=== PATIENT | male | born 1990 ===

== ENCOUNTER → 2020-10-19 11:59 | Outpatient (BNVA) | payer OTHER, SELFPAY | PROVIDERS: PCP Internal Medicine; Visit Provider Physician Assistant | DX: S93.401A Sprain of unspecified ligament of right ankle, initial encounter (principal); W18.31XA Fall on same level due to stepping on an object, initial encounter | CPT/HCPCS: 29515; 73610; 99203 ==

== ENCOUNTER → 2020-10-25 13:18 | Outpatient (BNVA) | payer OTHER, SELFPAY | PROVIDERS: PCP Internal Medicine; Visit Provider Physician Assistant | DX: S93.401A Sprain of unspecified ligament of right ankle, initial encounter (principal); X58.XXXA Exposure to other specified factors, initial encounter | CPT/HCPCS: 99213 ==

== ENCOUNTER → 2020-11-02 11:48 | Outpatient (BNVA) | payer OTHER, SELFPAY | PROVIDERS: PCP Internal Medicine; Visit Provider Physician Assistant Medical | DX: S93.401A Sprain of unspecified ligament of right ankle, initial encounter (principal); W01.0XXA Fall on same level from slipping, tripping and stumbling without subsequent striking against object, initial encounter | CPT/HCPCS: 99213 ==

== ENCOUNTER → 2020-11-04 09:20 | Outpatient (BNVA) | payer OTHER, SELFPAY | PROVIDERS: PCP Internal Medicine; Visit Provider Physician Assistant Medical | DX: S93.401A Sprain of unspecified ligament of right ankle, initial encounter (principal); X58.XXXA Exposure to other specified factors, initial encounter | CPT/HCPCS: 99213 ==

== ENCOUNTER → 2020-11-17 13:02 | Outpatient (BNVA) | payer OTHER, SELFPAY | PROVIDERS: PCP Internal Medicine; Visit Provider Physician Assistant | DX: S93.401D Sprain of unspecified ligament of right ankle, subsequent encounter (principal); X58.XXXD Exposure to other specified factors, subsequent encounter | CPT/HCPCS: 99213 ==

== ENCOUNTER → 2020-12-01 13:16 | Outpatient (BNVA) | payer OTHER, SELFPAY | PROVIDERS: PCP Internal Medicine; Visit Provider Physician Assistant Medical | DX: S93.401D Sprain of unspecified ligament of right ankle, subsequent encounter (principal); X58.XXXD Exposure to other specified factors, subsequent encounter | CPT/HCPCS: 99213 ==

== ENCOUNTER 2020-12-06 14:00 | Outpatient (RCR) | payer OTHER, SELFPAY ==
--- NOTE | 2020-11-09 15:58 | MHC.PT.EP ---
[facility] [place] Office [place] Office [place] Office [address] Amber Chen [address] [phone] F: [phone] F: [phone] F: [phone] F: [phone] Physical Therapy Plan of Care Date of Evaluation: 11/09/20 Date of Surgery: Diagnosis: R ankle sprain Assessment: pt presents to physical therapy with pain, decreased range of motion, decreased strength, impaired functional mobility, impaired postural awareness, and gait deviations. pt is an excellent candidate for skilled PT due to age, potential remediation of impairments, typical disease/condition progression and prognosis, comorbidities, and motivation. pt would benefit from tailored strengthening and stretching exercise program, functional training, gait training, postural re-training, neuromuscular re-education, modalities as needed for pain, equipment safety demonstration. Frequency and Duration: The patient will be seen 2x/wk for 5 wks Short Term Goals: pt will be I w/ HEP to promote self-management of condition. pt will improve R ankle DF by 20 deg to normalize gait pattern on even ground. Senior Living Goals: pt will report statistically significant improvement in self-reported outcome measure, LEFI, to promote return to PLOF. pt will perform 8 step down x5 reps w/ <1/10 R ankle pain to facilitate return to work. Treatment Plan: Modalities to reduce pain, spasms and effusion. Manual therapy to restore motion and function. Therapeutic exercise to improve strength and flexibility. Neuromuscular re-education for posture and balance. Therapeutic activities to return to functional activities of daily living. Electronically signed by: Liz Vera PT, DPT Please sign and return to therapist. Thank you for your referral.
--- NOTE | 2020-12-07 14:28 | MHC.PT.DC ---
[facility] [place] Office [place] Office [place] Office [address] Amber Chen 140 [facility] [phone] F: [phone] F: [phone] F: [phone] F: [phone] Physical Therapy Discharge Report Diagnosis: R ankle sprain Date of Surgery: Date of Evaluation: 11/09/20 Date of Discharge: 12/07/20 Treatments to Date: 3 Cancellations to Date: 0 No Shows to Date: 4 Discharge Status: Visit Non-compliance Discharge Summary: The patient has no showed four consecutive appointments. He was given a home exercise program including a gastrocnemius-soleus complex stretching, ankle range of motion, and ankle strengthening. We were beginning to progress towards more dynamic exercises and activities to prepare him to return to work. He is discharged from this physical therapy plan of care due to noncompliance. Electronically signed by: Liz Vera PT, DPT Please sign and return to therapist. Thank you for your referral.
== END 2020-12-07 14:28 | disposition other institution (70) ==
LOC: HO.PT 14:00
PROVIDERS: PCP Internal Medicine; Visit Provider Physician Assistant Medical
DX: S93.401D Sprain of unspecified ligament of right ankle, subsequent encounter (principal)
CPT/HCPCS: 97110; 97112; 97161

== ENCOUNTER → 2020-12-15 15:26 | Outpatient (BNVA) | payer OTHER, SELFPAY | PROVIDERS: PCP Internal Medicine; Visit Provider Physician Assistant Medical | DX: S93.401D Sprain of unspecified ligament of right ankle, subsequent encounter (principal); X58.XXXD Exposure to other specified factors, subsequent encounter | CPT/HCPCS: 99213 ==

== ENCOUNTER → 2020-12-29 12:53 | Outpatient (BNVA) | payer OTHER, SELFPAY | PROVIDERS: PCP Internal Medicine; Visit Provider Physician Assistant Medical | DX: S93.401D Sprain of unspecified ligament of right ankle, subsequent encounter (principal); X58.XXXD Exposure to other specified factors, subsequent encounter | CPT/HCPCS: 99213 ==

== ENCOUNTER 2021-01-05 08:24 | Outpatient (REF) | payer OTHER, SELFPAY ==
--- NOTE | ~2021-01-05 | XR_ITS ---
EXAMINATION: XR ANKLE, RIGHT CLINICAL INFORMATION: Pain COMPARISON: Previous exam 10/19/2020 TECHNIQUE: AP, lateral, and mortise views of the right ankle. FINDINGS: The bones and soft tissues are normal. No fracture. Alignment is anatomic. Joint spaces are maintained. No joint effusion. XR/XR ankle RT min 3V IMPRESSION: Normal right ankle.
== END 2021-01-05 08:25 | disposition home or self-care (01) ==
LOC: HO.HOSX 08:24
PROVIDERS: Visit Provider Physician Assistant
DX: S93.401A Sprain of unspecified ligament of right ankle, initial encounter (principal)
CPT/HCPCS: 73610; 99202

== ENCOUNTER → 2021-01-14 11:52 | Outpatient (BNVA) | payer OTHER, SELFPAY | PROVIDERS: PCP Internal Medicine; Visit Provider Physician Assistant Medical | DX: S93.491D Sprain of other ligament of right ankle, subsequent encounter (principal); X58.XXXD Exposure to other specified factors, subsequent encounter | CPT/HCPCS: 99213 ==

== ENCOUNTER → 2021-02-04 11:22 | Outpatient (BNVA) | payer OTHER, SELFPAY | PROVIDERS: PCP Internal Medicine; Visit Provider Physician Assistant Medical | DX: S93.401D Sprain of unspecified ligament of right ankle, subsequent encounter (principal); X58.XXXD Exposure to other specified factors, subsequent encounter | CPT/HCPCS: 99213 ==

== ENCOUNTER 2021-05-27 09:42 | Emergency (ER) | payer OTHER, SELFPAY ==
--- NOTE | ~2021-05-27 | XR_ITS ---
EXAMINATION: XR KNEE, RIGHT CLINICAL INFORMATION: Injury at work. Pain. COMPARISON: None TECHNIQUE: Four views of the right knee. FINDINGS: Bones and soft tissues are normal. No fracture or joint effusion. Alignment is anatomic. Joint spaces are well maintained. No abnormal soft tissue calcification. XR/XR knee RT 4V IMPRESSION: Unremarkable right knee.
[2021-05-27 09:58] VITALS: BP 133/89; PULSE 86; RESP 18; TEMP 36.9; O2SAT 98; BMI 30.7
--- NOTE | 2021-05-27 10:10 | ED.LOWEXIN ---
HPI - Extremity Injury (Lower) General Chief Complaint: Extremity Problem Stated Complaint: knee pain Time Seen by Provider: 05/27/21 10:09 Source: patient Mode of arrival: ambulatory Limitations: no limitations History of Present Illness MD complaint: knee injury Onset (ago): minute(s) Injury: Right: knee Type of Injury: hyperextension (fell at work landed on R leg standing felt a pop in knee) Place: work Severity: moderate Relieving factors: nothing Exacerbating factors: weight bearing, movement and palpation Context: fall Associated symptoms: snap/pop sensation Other symptoms: none Related Data Previous Rx's Medication Instructions Recorded meloxicam 15 mg tablet 15 mg PO DAILY PRN #30 tab 10/10/20 allopurinol 100 mg tablet 100 mg PO DAILY #30 tab 12/22/20 colchicine 0.6 mg tablet 0.6 mg PO Q12H #20 tab 12/22/20 cyclobenzaprine 10 mg tablet 10 mg PO TID PRN #14 tab 05/27/21 Allergies Allergy/AdvReac Type Severity Reaction Status Date / Time ciprofloxacin [Cipro] Allergy Unknown rash Verified 01/05/21 13:53 sulindac [SULINDAC] Allergy Unknown ITCHING, Verified 01/05/21 13:53 Rash/swelling on face indomethacin AdvReac Unknown stomach Verified 01/05/21 13:53 upset Review of Systems Review of Systems: Constitutional : No Fever, No Chills ENT/Mouth : No Ear Pain, No Hoarseness, No sore throat Eyes: No Eye Pain, No Swelling, No Redness, No Foreign Body Cardiovascular : No Chest Pain, No SOB Respiratory : No Cough, No Dyspnea Gastrointestinal : No Nausea, No Vomiting, No Diarrhea, No abdominal Pain Genitourinary : No Dysuria, No Hematuria Musculoskeletal : positive joint pain, No Myalgias, No Joint Swelling Skin : No Skin lacerations, No rash Neuro : No Weakness, No Numbness, No Loss of Consciousness, No Dizziness, No Headache Psych : No Anxiety/Panic, No Depression PMFSH Past Medical History Attestation statement: The following information was validated with the patient. 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 Oriented X3. No acute distress. Eyes: Pupils equal, round and reactive to light. ENT: Pharynx normal. Neck: Normal inspection. Neck supple. CVS: Normal heart rate and rhythm. Pulses normal. Respiratory: No respiratory distress. Breath sounds normal. Abdomen: no signs of trauma Skin: Skin warm and dry. Normal skin color. Extremities: No lower extremity edema. R knee ttp along medial meniscus - distal NV intact, quadriceps tendon intact - some ACL laxity with testing Neuro: Oriented X 3. No motor deficit. No sensory deficit. MDM - Extremity Injury (Lower) MDM Narrative Medical decision making narrative: 30 yo male with no sig PMH here with fall and landed on R leg when he landed (did not fall) felt a pop. He is NV intact some laxity in ACL testing - will obtain xray, place in immobilizer and crutches refer to work connection Procedures Orthopedic Splinting/Casting Injury #1: Side: right Lower Extremity Injury Location: knee Lower Extremity Immobilizer: knee immobilizer Other Orthopedic Equipment: crutches Discharge Plan Discharge Clinical Impression: Right knee sprain Patient Disposition: Home, Self-Care Instructions: Knee Sprain (ED), Knee Immobilizer (ED) Additional Instructions: return to ED for any worsening symptoms or concerns wear immobilizer and use crutches until cleared, minimal toe touch weight bearing take tylenol as needed for pain over the counter xrays negative at this time. Prescriptions: New cyclobenzaprine 10 mg tablet 10 mg PO TID PRN (Reason: muscle spasm) Qty: 14 RF: 0 No Action meloxicam 15 mg tablet 15 mg PO DAILY PRN (Reason: for swelling) Qty: 30 RF: 2 colchicine 0.6 mg tablet 0.6 mg PO Q12H Qty: 20 RF: 2 allopurinol 100 mg tablet 100 mg PO DAILY Qty: 30 RF: 2 Referrals: Tima Pedersen MD [Physician] - 2 days (any provider call for appointment) Stand Alone Forms: Work/School Release
[2021-05-27] MEDS: Cyclobenzaprine HCl 10 MG TABLET PO (10:24)
[2021-05-27] MEDS: Acetaminophen 325 MG TABLET 650 MG PO (10:24)
== END 2021-05-27 10:58 | disposition home or self-care (01) ==
PROVIDERS: Emergency Provider Emergency Medicine; PCP Internal Medicine
DX: S83.91XA Sprain of unspecified site of right knee, initial encounter (principal); M25.561 Pain in right knee; W01.0XXA Fall on same level from slipping, tripping and stumbling without subsequent striking against object, initial encounter; Y93.9 Activity, unspecified; Y92.9 Unspecified place or not applicable; Y99.0 Civilian activity done for income or pay; Z79.899 Other long term (current) drug therapy
CPT/HCPCS: 29505; 73564; 99283

== ENCOUNTER → 2021-05-30 10:35 | Outpatient (BNVA) | payer OTHER, SELFPAY | PROVIDERS: PCP Internal Medicine; Visit Provider Internal Medicine | DX: M25.461 Effusion, right knee (principal); M23.91 Unspecified internal derangement of right knee | CPT/HCPCS: 99203 ==

== ENCOUNTER → 2021-06-03 09:03 | Outpatient (BNVA) | payer OTHER, SELFPAY | PROVIDERS: PCP Internal Medicine; Visit Provider Internal Medicine | DX: M23.91 Unspecified internal derangement of right knee (principal); M25.461 Effusion, right knee | CPT/HCPCS: 99213 ==

== ENCOUNTER 2021-06-10 10:38 | Outpatient (REF) | payer OTHER, SELFPAY ==
--- NOTE | ~2021-06-10 | XR_ITS ---
EXAMINATION: XR KNEE, RIGHT CLINICAL INFORMATION: Knee pain. COMPARISON: Knee radiographs 05/27/2021. TECHNIQUE: Single sunrise view of the right knee. FINDINGS: [place] view appears normal. No significant arthritic change seen at the patellofemoral joint. XR/XR knee RT 2V IMPRESSION: Normal sunrise view right knee.
== END 2021-06-10 10:39 | disposition home or self-care (01) ==
LOC: HO.XRAY 10:38
PROVIDERS: PCP Internal Medicine; Visit Provider Physician Assistant
DX: M23.91 Unspecified internal derangement of right knee (principal)
CPT/HCPCS: 73560; 99212

== ENCOUNTER → 2021-06-13 09:29 | Outpatient (BNVA) | payer OTHER, SELFPAY | PROVIDERS: PCP Internal Medicine; Visit Provider Internal Medicine | DX: M25.461 Effusion, right knee (principal); M23.91 Unspecified internal derangement of right knee | CPT/HCPCS: 99213 ==

== ENCOUNTER 2021-06-16 08:15 | Outpatient (REF) | payer OTHER, SELFPAY ==
--- NOTE | ~2021-06-16 | MR_ITS ---
EXAMINATION: MR KNEE WITHOUT CONTRAST, RIGHT CLINICAL INFORMATION: Right knee pain and swelling. Difficulty with bending. Injury in May 2021. COMPARISON: Multiple priors, most recent right knee radiographs dated 06/10/2021. TECHNIQUE: MRI of the knee without contrast was performed using routine sequences on a high-field scanner. FINDINGS: MENISCI: Medial Meniscus: Edema along the periphery of the posterior medial meniscal body and posterior horn, which could indicate a nondisplaced meniscocapsular injury. No articular surface meniscal tear. Lateral Meniscus: Intact. LIGAMENTS: Cruciate: Intact. Collateral: Intact. EXTENSOR MECHANISM: Intact. ARTICULAR CARTILAGE/BONE: Patellofemoral Compartment: Minimal central trochlea articular cartilage signal heterogeneity and surface regularly. Tiny marginal osteophytes. Medial Compartment: Normal. Lateral Compartment: Normal. JOINT FLUID AND BURSAE: Moderate joint effusion. MR/MR knee RT wo con IMPRESSION: 1. Edema along the periphery of the posterior medial meniscal body and posterior horn, consistent with a nondisplaced meniscocapsular injury. No articular surface meniscal tear. 2. Mild patellofemoral arthrosis. Moderate joint effusion. 3. No acute ligament injury.
== END 2021-06-16 08:16 | disposition home or self-care (01) ==
LOC: HO.MRI 08:15
PROVIDERS: PCP Internal Medicine; Visit Provider Internal Medicine
DX: M25.561 Pain in right knee (principal); M25.461 Effusion, right knee
CPT/HCPCS: 73721

== ENCOUNTER → 2021-06-23 07:54 | Outpatient (BNVA) | payer OTHER, SELFPAY | PROVIDERS: PCP Internal Medicine; Visit Provider Internal Medicine | DX: S83.241D Other tear of medial meniscus, current injury, right knee, subsequent encounter (principal); X58.XXXD Exposure to other specified factors, subsequent encounter | CPT/HCPCS: 99214 ==

== ENCOUNTER → 2021-06-29 11:12 | Outpatient (BNVA) | payer OTHER, SELFPAY | PROVIDERS: PCP Internal Medicine; Visit Provider Physician Assistant | DX: S83.001D Unspecified subluxation of right patella, subsequent encounter (principal); M22.41 Chondromalacia patellae, right knee | CPT/HCPCS: 99212 ==

== ENCOUNTER 2021-07-14 10:01 | Outpatient (RCR) | payer OTHER, SELFPAY ==
--- NOTE | 2021-07-14 10:51 | MHC.PT.EP ---
[facility] [place] Office [place] Office [place] Office [address] Amber Chen [address] [phone] F: [phone] F: [phone] F: [phone] F: [phone] Physical Therapy Plan of Care Date of Evaluation: Date of Surgery: n/a Diagnosis: Subluxation of R patella Assessment: Patient is a 31 year old male presenting to PT with complaints of pain in his R knee. 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 He presents today with impairments in pain, knee ROM, hip strength, and balance. Pt's current occupation is for the [employer], with baseline physical activities including work, squatting, kneeling, and stair negotiation. Pt expresses jail goal of being able to squat and kneel, and is motivated to work towards this in PT. Clinical presentation today is most consistent with signs and sx associated with s/p R patella subluxation and pt will benefit from skilled PT to address the following problems and impairments noted upon evaluation: pain, knee ROM, hip strength, and balance. These problems limit the patient with the following functional activities: work, squatting, kneeling, and stair negotiation. The prescribed treatment plan of care is medically necessary. Co-morbidities of none were identified and taken into considerations of plan of care. Pt was educated on HEP, role of PT, prognosis, POC. Frequency and Duration: The patient will be seen 2 x week x 4 weeks Short Term Goals: Pt will demonstrate R knee AROM equal B with no pain in 2 weeks. Pt will demonstrate improved B hip strength by 1/3 MMT for improved lumbopelvic stability in 2 weeks. Pt will demonstrate ability to perform 10 heel raises on R with min to no pain in 2 weeks. Pt will demonstrate ability to SLS on foam x 30 seconds with min to no ankle strategy in 2 weeks. Fdc Goals: Pt will demonstrate improved LEFI score by 9 points in 4 weeks for improved functional mobility. Pt will demonstrate ability to squat with good mechanics and min to no pain in 4 weeks to allow return to PLOF. Pt will demonstrate ability to negotiate stairs with min to no pain in 4 weeks for improved access to his home. Treatment Plan: Modalities to reduce pain, spasms and effusion. Manual therapy to restore motion and function. Therapeutic exercise to improve strength and flexibility. Neuromuscular re-education for posture and balance. Therapeutic activities to return to functional activities of daily living. Electronically signed by: Nicole Tobin, PT, DPT, ATC Please sign and return to therapist. Thank you for your referral.
--- NOTE | 2021-08-02 09:22 | MHC.PT.DC ---
[facility] [place] Office [place] Office [place] Office [address] Sonya Chen [address] [phone] F: [phone] F: [phone] F: [phone] F: [phone] Physical Therapy Discharge Report Diagnosis: Subluxation of R patella Date of Surgery: n/a Date of Evaluation: 07/14/21 Date of Discharge: 08/02/21 Treatments to Date: 1 Cancellations to Date: 0 No Shows to Date: 2 Discharge Status: Visit Non-compliance Discharge Summary: Pt has failed to comply with [facility] [place] policy and no showed all appointments since initial evaluation. Pt current status unknown. Electronically signed by: Nicole Tobin, PT, DPT, ATC Please sign and return to therapist. Thank you for your referral.
== END 2021-08-02 09:22 | disposition home or self-care (01) ==
LOC: HO.PT 10:01
PROVIDERS: PCP Internal Medicine; Visit Provider Physician Assistant
DX: S83.001A Unspecified subluxation of right patella, initial encounter (principal); M22.41 Chondromalacia patellae, right knee
CPT/HCPCS: 97110; 97161

== ENCOUNTER → 2022-01-05 09:22 | Outpatient (BNVA) | payer OTHER, SELFPAY | PROVIDERS: PCP Internal Medicine; Visit Provider Physician Assistant | DX: S93.402A Sprain of unspecified ligament of left ankle, initial encounter (principal); W17.2XXA Fall into hole, initial encounter | CPT/HCPCS: 29515; 73610; 99204 ==

== ENCOUNTER → 2022-01-11 13:34 | Outpatient (BNVA) | payer OTHER, SELFPAY | PROVIDERS: PCP Internal Medicine; Visit Provider Physician Assistant | DX: S93.402A Sprain of unspecified ligament of left ankle, initial encounter (principal); X58.XXXA Exposure to other specified factors, initial encounter | CPT/HCPCS: 99213 ==

== ENCOUNTER → 2022-01-23 11:45 | Outpatient (BNVA) | payer OTHER, SELFPAY | PROVIDERS: PCP Internal Medicine; Visit Provider Physician Assistant Medical | DX: S93.402D Sprain of unspecified ligament of left ankle, subsequent encounter (principal); X58.XXXD Exposure to other specified factors, subsequent encounter | CPT/HCPCS: 99213 ==

== ENCOUNTER 2022-02-07 11:40 | Emergency (ER) | payer OTHER, SELFPAY ==
--- NOTE | ~2022-02-07 | XR_ITS ---
EXAMINATION: XR KNEE, LEFT CLINICAL INFORMATION: Swelling and pain status post physical therapy COMPARISON: None TECHNIQUE: Four views of the left knee. FINDINGS: Bones are normal. No fracture is identified. There is a moderate suprapatellar effusion. Alignment is anatomic. Joint spaces are well maintained. No abnormal soft tissue calcification. XR/XR knee LT 4V IMPRESSION: Moderate suprapatellar effusion. No acute bony abnormality identified.
[2022-02-07 12:00] VITALS: BP 145/70; PULSE 96; RESP 18; TEMP 36.3; O2SAT 98; BMI 29.2
--- NOTE | 2022-02-07 12:27 | ED_ITS ---
HPI - Extremity Injury (Lower) General Chief Complaint: Extremity Injury, Lower Stated Complaint: knee pain swelling Time Seen by Provider: 02/07/22 12:22 Source: patient Mode of arrival: ambulatory History of Present Illness HPI Narrative: 31-year-old male with past medical history of gout, and left ankle sprain currently on crutches presenting to the ED complaining of left knee pain and swelling since yesterday s/p PT. Patient reports he is currently out of work due to left ankle injury which he is seeing PT, denies known injury, trauma, fall, twisting injury, numbness, tingling, weakness, fever MD complaint: knee injury Onset (ago): day(s) Related Data Previous Rx's Medication Instructions Recorded meloxicam 15 mg tablet 15 mg PO DAILY PRN #30 tab 10/10/20 allopurinol 100 mg tablet 100 mg PO DAILY #30 tab 12/22/20 colchicine 0.6 mg tablet 0.6 mg PO Q12H #20 tab 12/22/20 cyclobenzaprine 10 mg tablet 10 mg PO TID PRN #14 tab 05/27/21 Allergies Allergy/AdvReac Type Severity Reaction Status Date / Time ciprofloxacin [Cipro] Allergy Unknown rash Verified 02/07/22 12:00 sulindac [SULINDAC] Allergy Unknown ITCHING, Verified 02/07/22 12:00 Rash/swelling on face indomethacin AdvReac Unknown stomach Verified 02/07/22 12:00 upset Review of Systems Review of Systems: Constitutional: No Fever, No Chills ENT/Mouth: No Ear Pain, No Nasal Congestion, No sore throat, No Rhinorrhea, No Swallowing Difficulty Cardiovascular: No Chest Pain, No SOB Respiratory: No Cough, No Sputum, No Wheezing Gastrointestinal: No Nausea, No Vomiting, No Diarrhea, No Constipation, No Abdominal pain Genitourinary:, No Dysuria, No Urinary Frequency, No Urgency, No Flank Pain Musculoskeletal: + joint pain, No Myalgias, + Joint Swelling Skin: No Skin Lesions, No rash Neuro: No Weakness, No Numbness, No Paresthesias Yes all other systems are reviewed and are negative [facility]LY [facility], [facility] Past Medical History Attestation statement: The following information was validated with the patient. 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/ [employer] Physical Exam Vital Signs: Vital Signs: Last Vital Signs Temp 97.4 F 02/07/22 12:00 Pulse 96 02/07/22 12:00 Resp 18 02/07/22 12:00 BP 145/70 H 02/07/22 12:00 Pulse Ox 98 02/07/22 12:00 BMI result Body Mass Index 29.2 Const: General: cooperative, healthy appearing and no acute distress Orientation/consciousness: patient oriented x3 Limitations: no limitations HEENT: Head: Yes normal to inspection and Yes atraumatic Ears: hearing grossly normal bilaterally General nose exam: Normal external nose present Face and sinus: Yes normal facial exam Eyes: General: appearance normal, both eyes and all related structures EOM: EOMs intact bilaterally Neck: Neck: Yes normal visual inspection and Yes no meningeal signs Resp: Effort & Inspection: normal respiratory effort and no respiratory distress Cardio: Rate: regular rate Heart sounds: S1 normal heart sound present and S2 normal heart sound present Peripheral pulses: dorsalis pedis present Skin: Rashes: no rashes Wounds: no wounds Neuro: General: patient oriented x3, tone normal and no meningeal signs Gait exam (Neuro): Normal gait present Extrem: Other: Left knee with noted > swelling suprapatellar. Tender to palpation greatest to lateral aspect. No laxity. No erythema/warmth. Decreased extension/flexion secondary to pain. Neurovascular intact distally Course Course Course Narrative: XR knee LT 4V IMPRESSION: Moderate suprapatellar effusion. No acute bony abnormality identified. ? > results discussed with patient including needed close follow-up with orthopedics/PCP. Carlos wrap applied for comfort and stability MDM - Extremity Injury (Lower) MDM Narrative Medical decision making narrative: 31-year-old male with past medical history of gout, and left ankle sprain currently on crutches presenting to the ED complaining of left knee pain and swelling since yesterday s/p PT. on exam vital signs stable, NAD/nontoxic- appearing, physical exam as above. Concern for tendon versus ligament versus meniscal injury. Plan: X-rays Differential Diagnosis Differential diagnosis: Likely acute internal derangement of knee Medical Records Attestation: I reviewed the patient's medical records. Lab Data Attestation: I reviewed the patient's lab results. Discharge Plan Discharge Clinical Impression: Suprapatellar effusion of knee Patient Disposition: Home, Self-Care Instructions: Swollen Knee Joint (ED) Additional Instructions: Your x-ray shows a joint effusion above her kneecap. Ice, elevate, rest. Wear Carlos wrap at home for compression/swelling instability Take Tylenol & Motrin for pain Follow-up with your doctor and Orthopedics as needed Prescriptions: No Action meloxicam 15 mg tablet 15 mg PO DAILY PRN (Reason: for swelling) Qty: 30 2RF colchicine 0.6 mg tablet 0.6 mg PO Q12H Qty: 20 2RF allopurinol 100 mg tablet 100 mg PO DAILY Qty: 30 2RF cyclobenzaprine 10 mg tablet 10 mg PO TID PRN (Reason: muscle spasm) Qty: 14 0RF Referrals: Kay Goodman PA-C [Physician Loom Repairer] - 1 week
== END 2022-02-07 14:11 | disposition home or self-care (01) ==
PROVIDERS: Emergency Provider Emergency Medicine; PCP Internal Medicine
DX: M25.462 Effusion, left knee (principal); S93.402D Sprain of unspecified ligament of left ankle, subsequent encounter; X58.XXXD Exposure to other specified factors, subsequent encounter
CPT/HCPCS: 73564; 99283

== ENCOUNTER → 2022-02-09 14:45 | Outpatient (BNVA) | payer OTHER, SELFPAY | PROVIDERS: PCP Internal Medicine; Visit Provider Physician Assistant | DX: S93.401A Sprain of unspecified ligament of right ankle, initial encounter (principal) | CPT/HCPCS: 99202 ==

== ENCOUNTER 2022-02-23 02:05 | Emergency (ER) | payer OTHER, SELFPAY ==
--- NOTE | ~2022-02-23 | CT_ITS ---
EXAMINATION: CT ABDOMEN AND PELVIS WITHOUT CONTRAST CLINICAL INFORMATION: Periumbilical/right lower quadrant pain. COMPARISON: None TECHNIQUE: Multidetector volumetric imaging was performed from the superior aspect of the liver through the pubic symphysis. Sagittal and coronal reformatted images were obtained on the technologist's workstation. This CT examination was performed using dose optimization techniques as appropriate, variously including the following: *Automated exposure control *Adjustment of mA and/or kV according to patient size (this includes techniques or standardized protocols for targeted exams where dose is matched to indication/reason for exam; i.e. extremities or head) *Use of iterative reconstruction technique DLP: 672 mGy-cm FINDINGS: LUNG BASES: The visualized lung bases are unremarkable. LIVER, GALLBLADDER, AND BILIARY TREE: The liver is normal in size, shape, and attenuation. No focal hepatic lesion or biliary ductal dilatation is present. The gallbladder is unremarkable with no evidence of radiopaque gallstones, gallbladder wall thickening, or obvious pericholecystic inflammatory changes. PANCREAS: Unremarkable. SPLEEN: Unremarkable. ADRENAL GLANDS: Unremarkable. KIDNEYS AND URETERS: The kidneys are normal in size, shape, and attenuation. No hydronephrosis, hydroureter, or calculi seen. No perinephric stranding. BLADDER: Unremarkable. GASTROINTESTINAL TRACT: The stomach is unremarkable. Normal caliber small bowel. No obstruction. The appendix is absent. No colonic wall thickening or inflammation. ABDOMINAL WALL: No significant hernia is appreciated. LYMPH NODES: Normal. VASCULAR: Unremarkable. PELVIC VISCERA: The prostate and seminal vesicles are unremarkable. OSSEOUS STRUCTURES: No acute or suspicious osseous abnormality. CT/CT abdomen pelvis wo con IMPRESSION: No acute finding in the abdomen or pelvis. No inflammatory changes. Fleischner guidelines were followed.
[2022-02-23 02:15] VITALS: BP 139/73; PULSE 88; RESP 18; TEMP 37.2; O2SAT 99; BMI 29.9
--- NOTE | 2022-02-23 02:48 | ED_ITS ---
HPI - Abdominal Pain General Chief Complaint: Abdominal Pain Stated Complaint: stomach pain Time Seen by Provider: 02/23/22 02:15 Source: patient Mode of arrival: ambulatory History of Present Illness HPI narrative: 31-year-old male without significant past medical history presents with complaints of periumbilical pain that woke him up from sleep and he states it is sharp and goes back and forth but also reports that he is status post appendectomy. His pain has been associated with nausea but denies any vomiting, diarrhea, fever, or chills. Related Data Previous Rx's Medication Instructions Recorded meloxicam 15 mg tablet 15 mg PO DAILY PRN #30 tab 10/10/20 allopurinol 100 mg tablet 100 mg PO DAILY #30 tab 12/22/20 cyclobenzaprine 10 mg tablet 10 mg PO TID PRN #14 tab 05/27/21 acetaminophen 500 mg tablet 500 mg PO Q6H PRN #14 tab 02/07/22 (Tylenol Extra Strength) cyclobenzaprine 5 mg tablet 5 mg PO Q8H PRN 5 Days #10 tab 02/07/22 colchicine 0.6 mg tablet 0.6 mg PO Q12H #20 tab 02/10/22 Allergies Allergy/AdvReac Type Severity Reaction Status Date / Time ciprofloxacin [Cipro] Allergy Unknown rash Verified 02/23/22 02:17 sulindac [SULINDAC] Allergy Unknown ITCHING, Verified 02/23/22 02:17 Rash/swelling on face indomethacin AdvReac Unknown stomach Verified 02/23/22 02:17 upset Review of Systems Review of Systems Pertinent positives and negatives as stated in HPI 10 point review of systems is otherwise negative. 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 GENERAL: Well developed, well nourished, in no acute distress. HEAD: Normocephalic/atraumatic EYES: PERRLA, EOMI EARS: Ext canals without abnormality OROPHARYNX: no oral lesions noted, posterior pharynx clear LUNGS: Normal breath sounds. No adventitious sounds or accessory muscle use. SpO2<99> CARDIOVASCULAR: Regular rate and rhythm without noted murmurs ABDOMEN: Soft, mild tenderness on palpation at the periumbilical without rebound, non-distended with bowel sounds SKIN: Inspection of the skin reveals no rashes NEUROLOGIC: Alert and oriented x 4. Course Course Course Narrative: 31-year-old male with history and clinical presentation suggestive of possible umbilical hernia, renal colic but doubt UTI. Review all investigations otherwise negative for acute findings, acknowledged the leukocytosis, however there is no obvious etiology. On re-evaluation patient has had complete resolution of his symptoms and on repeat abdominal exam there is no discomfort or tenderness on palpation. He was provided with all results and otherwise discharged home in stable condition with ability to tolerate oral intake. MDM - Abdominal Pain Lab Data Result diagrams: 02/23/22 02:51 02/23/22 02:51 Labs: Lab Results 02/23/22 02/23/22 02/23/22 Range/Units 02:51 02:51 03:01 WBC 13.6 H (4.8-10.8) X10*3/uL RBC 5.11 (4.60-5.80) X10*6/uL Hgb 14.7 (14.0-18.0) g/dl Hct 44.3 (42.0-52.0) % MCV 86.7 (80.0-98.0) fL MCH 28.8 (27.0-33.0) pg MCHC 33.2 (31.0-36.0) g/dl RDW 12.2 (11.0-16.0) % Plt Count 331 (160-400) X10*3/uL MPV 9.7 (9.4-12.4) fL Immature Gran % (Auto) 0.6 H (0.0-0.4) % Neut % (Auto) 56.3 (45-73) % Lymph % (Auto) 34.2 (20-40) % [place] % (Auto) 6.7 (2-11) % Eos % (Auto) 1.8 (0-4) % Baso % (Auto) 0.4 (0-2) % Lymph # (Auto) 4.7 (1.2-4.9) X10*3/uL [place] # (Auto) 0.9 (0.1-1.2) X10*3/uL Eos # (Auto) 0.2 (0.0-0.4) X10*3/uL Baso # (Auto) 0.1 (0.0-0.2) X10*3/uL Abs Immat Gran (auto) 0.08 H (0.00-0.03) X10*3/uL Absolute Neuts (auto) 7.7 (2.0-8.3) x10*3/uL Absolute Nucleated RBC 0.000 (0.0-0.012) X10*3/uL Nucleated RBC % (auto) 0.0 (0.0-0.2) /100WBC Sodium 139 (135-145) mmol/L Potassium 3.8 (3.3-5.1) mmol/L Chloride 103 (96-108) mmol/L Carbon Dioxide 29 (22-29) mmol/L Anion Gap 11 L (12-20) BUN 21 H (9-16) mg/dL Creatinine 1.39 (0.5-1.4) mg/dL Estim Creat Clear Calc 93.3 Estimated GFR > 60 Random Glucose 99 (60-115) mg/dL Calcium 9.9 (8.4-10.2) mg/dL Total Bilirubin 0.4 (0.0-1.0) mg/dL AST 14 (5-37) U/L ALT 21 (0-40) U/L Alkaline Phosphatase 61 (39-117) U/L Total Protein 7.3 (6.5-8.0) g/dL Albumin 4.1 (3.5-5.0) g/dL Lipase 29 (8-78) U/L Urine Color YELLOW Urine Appearance CLEAR Urine pH 7.0 (5.0-8.0) Ur Specific [place] 1.015 (1.005-1.025) Urine Protein NEG (NEG-TRACE) MG/DL Urine Glucose (UA) NEG (NEG) MG/DL Urine Ketones NEG (NEG) MG/DL Urine Blood NEG (NEG) Urine Nitrite NEG (NEG) Ur Leukocyte Esterase NEG (NEG) Discharge Plan Discharge Clinical Impression: Abdominal pain Patient Disposition: Home, Self-Care Instructions: Abdominal Pain (ED) Additional Instructions: Follow-up with your primary care provider in the next 2-3 days for re- evaluation and further outpatient management. Return to the ER for worsening symptoms. Prescriptions: No Action meloxicam 15 mg tablet 15 mg PO DAILY PRN (Reason: for swelling) Qty: 30 2RF allopurinol 100 mg tablet 100 mg PO DAILY Qty: 30 2RF colchicine 0.6 mg tablet 0.6 mg PO Q12H Qty: 20 2RF cyclobenzaprine 10 mg tablet 10 mg PO TID PRN (Reason: muscle spasm) Qty: 14 0RF acetaminophen [Tylenol Extra Strength] 500 mg tablet 500 mg PO Q6H PRN (Reason: pain or fever) Qty: 14 0RF cyclobenzaprine 5 mg tablet 5 mg PO Q8H PRN (Reason: pain (scale score 7-10)) 5 Days Qty: 10 0RF
[2022-02-23 02:56] LABS: Basophils Absolute Auto 0.1 X10*3/uL (0.0-0.2); Basophils Percent Auto 0.4 % (0-2); Eosinophils Absolute Auto 0.2 X10*3/uL (0.0-0.4); Eosinophils Percent Auto 1.8 % (0-4); Hematocrit 44.3 % (42.0-52.0); Hemoglobin 14.7 g/dl (14.0-18.0); Imm Gran Abs Auto 0.08 X10*3/uL (0.00-0.03); Imm Gran Pct Auto 0.6 % (0.0-0.4); Lymphocytes Absolute Auto 4.7 X10*3/uL (1.2-4.9); Lymphocytes Percent Auto 34.2 % (20-40); MANUAL DIFF FLAG NO; Mean Corpuscular HGB Conc 33.2 g/dl (31.0-36.0); Mean Corpuscular Hemoglobin 28.8 pg (27.0-33.0); Mean Corpuscular Volume 86.7 fL (80.0-98.0); Mean Platelet Volume 9.7 fL (9.4-12.4); Monocytes Absolute Auto 0.9 X10*3/uL (0.1-1.2); Monocytes Percent Auto 6.7 % (2-11); Neutrophils Absolute Auto 7.7 x10*3/uL (2.0-8.3); Neutrophils Percent Auto 56.3 % (45-73); Platelet Count 331 X10*3/uL (160-400); Red Blood Count 5.11 X10*6/uL (4.60-5.80); Red Cell Distribution Width 12.2 % (11.0-16.0); White Blood Count 13.6 X10*3/uL (4.8-10.8)
[2022-02-23 03:09] LABS: Appearance Urine CLEAR; Color Urine YELLOW; Glucose Urine UA NEG (NEG); Leukocyte Esterase Urine NEG (NEG); Nitrite Urine NEG (NEG); Specific Gravity - Urine 1.015 (1.005-1.025); Urine Blood NEG (NEG); Urine Ketones NEG (NEG); Urine Protein NEG (NEG-TRACE)
[2022-02-23 03:16] LABS: Alanine Aminotransferase 21 U/L (0-40); Albumin Level 4.1 g/dL (3.5-5.0); Alkaline Phosphatase 61 U/L (39-117); Anion Gap 11 (12-20); Aspartate Amino Transferase 14 U/L (5-37); Bilirubin Total 0.4 mg/dL (0.0-1.0); Blood Urea Nitrogen 21 mg/dL (9-16); Calcium 9.9 mg/dL (8.4-10.2); Carbon Dioxide 29 mmol/L (22-29); Chloride 103 mmol/L (96-108); Creatinine Clr Calc Pharmacy 93.3; Estimated Glomerular Filt Rate > 60; Glucose Random 99 mg/dL (60-115); Lipase 29 U/L (8-78); Potassium 3.8 mmol/L (3.3-5.1); Sodium 139 mmol/L (135-145); Total Protein 7.3 g/dL (6.5-8.0)
== END 2022-02-23 04:37 | disposition home or self-care (01) ==
PROVIDERS: Emergency Provider Student in an Organized Health Care Education/Training Program
DX: R10.33 Periumbilical pain (principal)
CPT/HCPCS: 36415; 74176; 80053; 81003; 83690; 85025; 99283; 99284

== ENCOUNTER → 2022-03-09 09:26 | Outpatient (BNVA) | payer OTHER, SELFPAY | PROVIDERS: Visit Provider Physician Assistant | DX: Z13.89 Encounter for screening for other disorder (principal) ==

== ENCOUNTER 2022-03-16 07:00 | Outpatient (RCR) | payer OTHER, SELFPAY ==
--- NOTE | 2022-02-01 15:15 | MHC.PT.EP ---
[facility] [place] Office [place] Office [place] Office [address] Amber Chen [address] [phone] F: [phone] F: [phone] F: [phone] F: [phone] Physical Therapy Plan of Care Date of Evaluation: Date of Surgery: Diagnosis: LEFT ANKLE SPRAIN (KP) Assessment: JESSENIA IS A PLEASANT 31 YO MALE WHO ARRIVES FOR PT S/P WORK INJURY. HE WORKS FOR [employer] AND TWISTED HIS ANKLE AFTER STEPPING INTO [employer]. UPON EXAM HE DEMONSTRATES IMPAIRMENTS INCLUDING DECREASED ROM AND STRENGTH, ALTERED GAIT, INCREASED EDEMA AND PAIN. FUNCTIONAL LIMITATIONS INCLUDE DECREASED ABILITY TO PERFORM WALKING LONG DISTANCES, STAIR CLIMBING, JUMPING AND SQUATTING. HE ALSO REPORTS DECREASED ABILITY TO PERFORM HOMEMAKING AND WORK TASKS, DECREASED ABILITY TO PARTICIPATE IN RECREATIONAL AND FITNESS ACTIVITIES. Pt IS A GOOD CANDIDATE FOR SKILLED PT DUE TO AGE, POTENTIAL REMEDIATION OF IMPAIRMENTS, TYPICAL DISEASE/CONDITION PROGRESSION AND PROGNOSIS, COMORBIDITIES, AND MOTIVATION. Pt WOULD BENEFIT FROM TAILORED PROGRAM OF THERAPEUTIC ACTIVITIES, FUNCTIONAL TRAINING, GAIT TRAINING, POSTURAL EDUCATION, NEUROMUSCULAR RE-EDUCATION, AND MODALITIES NEEDED. Frequency and Duration: The patient will be seen 2 X WEEK FOR 4 WEEKS Short Term Goals: INITIATE HEP AND PROMOTE SELF MANAGEMENT OF SYMPTOMS IN 2 WEEKS Prison Goals: 4 WEEKS INDEPENDENT HEP TO TOLERATE WALKING A MINIMUM OF 1 HOUR WITHOUT PAIN GREATER THAN 2/10 TO AMBULATE AND JOG ON LEVEL AND UNEVEN SURFACES T0 DEMONSTRATE FULL ANKLE ROM AND STRENGTH WITHOUT RESTRICTION Treatment Plan: Modalities to reduce pain, spasms and effusion. Manual therapy to restore motion and function. Therapeutic exercise to improve strength and flexibility. Neuromuscular re-education for posture and balance. Therapeutic activities to return to functional activities of daily living. Electronically signed by: GERALD HACKETT PT, DPT Please sign and return to therapist. Thank you for your referral.
== END 2022-05-18 07:28 | disposition home or self-care (01) ==
LOC: HO.PT 07:00
PROVIDERS: Visit Provider Physician Assistant Medical
DX: S93.402D Sprain of unspecified ligament of left ankle, subsequent encounter (principal)
CPT/HCPCS: 97035; 97110; 97161; 97530

== ENCOUNTER → 2022-04-18 13:38 | Outpatient (BNVA) | payer OTHER, SELFPAY | PROVIDERS: PCP Nurse Practitioner Family; Visit Provider Internal Medicine | DX: S83.92XA Sprain of unspecified site of left knee, initial encounter (principal); S76.312A Strain of muscle, fascia and tendon of the posterior muscle group at thigh level, left thigh, initial encounter; V68.4XXA Person boarding or alighting a heavy transport vehicle injured in noncollision transport accident, initial encounter | CPT/HCPCS: 73564; 99213 ==

== ENCOUNTER → 2022-04-26 09:50 | Outpatient (BNVA) | payer OTHER, SELFPAY | PROVIDERS: PCP Nurse Practitioner Family; Visit Provider Physician Assistant | DX: S83.92XA Sprain of unspecified site of left knee, initial encounter (principal); S76.312A Strain of muscle, fascia and tendon of the posterior muscle group at thigh level, left thigh, initial encounter; V68.4XXA Person boarding or alighting a heavy transport vehicle injured in noncollision transport accident, initial encounter | CPT/HCPCS: 99213 ==

== ENCOUNTER → 2022-05-03 13:02 | Outpatient (BNVA) | payer OTHER, SELFPAY | PROVIDERS: PCP Nurse Practitioner Family; Visit Provider Physician Assistant Medical | DX: S83.92XA Sprain of unspecified site of left knee, initial encounter (principal); S76.312A Strain of muscle, fascia and tendon of the posterior muscle group at thigh level, left thigh, initial encounter; V68.4XXA Person boarding or alighting a heavy transport vehicle injured in noncollision transport accident, initial encounter | CPT/HCPCS: 99203 ==

== ENCOUNTER → 2022-05-17 13:25 | Outpatient (BNVA) | payer OTHER, SELFPAY | PROVIDERS: PCP Nurse Practitioner Family; Visit Provider Physician Assistant Medical | DX: S83.92XD Sprain of unspecified site of left knee, subsequent encounter (principal); S76.312D Strain of muscle, fascia and tendon of the posterior muscle group at thigh level, left thigh, subsequent encounter; V68 Occupant of heavy transport vehicle injured in noncollision transport accident | CPT/HCPCS: 99213 ==

== ENCOUNTER 2022-05-24 08:05 | Outpatient (REF) | payer OTHER, SELFPAY ==
--- NOTE | ~2022-05-24 | MR_ITS ---
EXAMINATION: MRI OF THE LEFT FEMUR WITHOUT CONTRAST CLINICAL INFORMATION: Attention distal quadriceps, hamstrings. Falling injury. Rule out tear. COMPARISON: Radiograph dated 04/18/2022 TECHNIQUE: Multiplanar MR imaging was obtained through the left femur without contrast on a 1.5 Le magnet. Images are centered at the femur with more limited coverage of the knee and hip. FINDINGS: Musculature is normal in signal intensity without edema signal or fatty atrophy. The left distal quadriceps tendon appears intact without an appreciable tear. Sensitivity for mild tendinosis is slightly limited on this large [id number] study. Normal muscle bulk. Imaged tendons at the level of the hip joint are unremarkable, though also only partially imaged. The proximal hamstring tendons are normal. Bone marrow signal is normal. No fracture, malalignment, or stress reaction at the left femur. The right femur is unremarkable on the coronal T1-weighted sequence. Imaged portion of the left innominate bone is normal. Trace fluid at the left knee joint. No appreciable loose bodies on these images. Subcutaneous soft tissues are unremarkable. Neurovascular structures are normal in appearance. No gross evidence of lesions on these images. No adenopathy. MR/MR femur LT wo con IMPRESSION: Normal MRI of the left femur. No appreciable tears of the quadriceps and hamstring muscles.
[2022-05-24 10:48] LABS: Hematocrit 47.9 % (42.0-52.0); Hemoglobin 15.7 g/dl (14.0-18.0); Mean Corpuscular HGB Conc 32.8 g/dl (31.0-36.0); Mean Corpuscular Hemoglobin 29.1 pg (27.0-33.0); Mean Corpuscular Volume 88.7 fL (80.0-98.0); Mean Platelet Volume 10.3 fL (9.4-12.4); Platelet Count 283 X10*3/uL (160-400); Red Cell Distribution Width 13.6 % (11.0-16.0); White Blood Count 8.9 X10*3/uL (4.8-10.8)
[2022-05-24 11:26] LABS: Alanine Aminotransferase 33 U/L (0-40); Albumin Level 4.4 g/dL (3.5-5.0); Alkaline Phosphatase 63 U/L (39-117); Anion Gap 16 (12-20); Aspartate Amino Transferase 21 U/L (5-37); Bilirubin Total 0.5 mg/dL (0.0-1.0); Blood Urea Nitrogen 17 mg/dL (9-16); C Reactive Protein 0.12 mg/dL (< or = 0.50); Calcium 9.8 mg/dL (8.4-10.2); Carbon Dioxide 24 mmol/L (22-29); Chloride 107 mmol/L (96-108); Estimated Glomerular Filt Rate > 60; Glucose Fasting 92 mg/dL (60-99); Potassium 4.4 mmol/L (3.3-5.1); Sodium 143 mmol/L (135-145); Total Protein 7.6 g/dL (6.5-8.0); Uric Acid 6.5 mg/dL (3.4-7.0)
[2022-05-24 11:33] LABS: Erythrocyte Sedimentation Rate 6 MM/HR (0-15)
[2022-05-24 11:35] LABS: TSH reflex Free T4 1.59 uIU/mL (0.32-4.0); Vitamin D 25-OH Total 31.4 ng/mL (>30)
[2022-05-24 11:49] LABS: Folate 10.2 ng/mL (> or = 4.0); Vitamin B12 458 pg/mL (200-900)
== END 2022-05-24 08:06 | disposition home or self-care (01) ==
LOC: HO.MRI 08:05
PROVIDERS: Nurse Practitioner Family; Visit Provider Internal Medicine
DX: M10.9 Gout, unspecified (principal); Z13.1 Encounter for screening for diabetes mellitus; Z13.29 Encounter for screening for other suspected endocrine disorder; Z76.89 Persons encountering health services in other specified circumstances; S79.922A Unspecified injury of left thigh, initial encounter; W17.89XA Other fall from one level to another, initial encounter; Y93.9 Activity, unspecified; Y92.9 Unspecified place or not applicable; Y99.8 Other external cause status
CPT/HCPCS: 36415; 73718; 80053; 82306; 82607; 82746; 84443; 84550; 85027; 85652; 86140

== ENCOUNTER 2022-06-02 09:35 | Outpatient (REF) | payer OTHER, SELFPAY ==
[2022-06-02 10:28] LABS: MANUAL DIFF FLAG NO
[2022-06-02 10:31] LABS: Basophils Absolute Auto 0.1 X10*3/uL (0.0-0.2); Basophils Percent Auto 0.7 % (0-2); Eosinophils Absolute Auto 0.2 X10*3/uL (0.0-0.4); Eosinophils Percent Auto 2.5 % (0-4); Hemoglobin 15.8 g/dl (14.0-18.0); Imm Gran Abs Auto 0.09 X10*3/uL (0.00-0.03); Imm Gran Pct Auto 1.1 % (0.0-0.4); Lymphocytes Absolute Auto 3.1 X10*3/uL (1.2-4.9); Lymphocytes Percent Auto 38.1 % (20-40); Mean Corpuscular HGB Conc 32.9 g/dl (31.0-36.0); Mean Corpuscular Volume 88.2 fL (80.0-98.0); Mean Platelet Volume 10.1 fL (9.4-12.4); Monocytes Absolute Auto 0.8 X10*3/uL (0.1-1.2); Monocytes Percent Auto 9.4 % (2-11); Neutrophils Absolute Auto 3.9 x10*3/uL (2.0-8.3); Neutrophils Percent Auto 48.2 % (45-73); Platelet Count 323 X10*3/uL (160-400); Red Blood Count 5.44 X10*6/uL (4.60-5.80); Red Cell Distribution Width 13.4 % (11.0-16.0); White Blood Count 8.2 X10*3/uL (4.8-10.8)
[2022-06-02 10:52] LABS: Alanine Aminotransferase 39 U/L (0-40); Albumin Level 4.5 g/dL (3.5-5.0); Alkaline Phosphatase 65 U/L (39-117); Anion Gap 14 (12-20); Aspartate Amino Transferase 25 U/L (5-37); Bilirubin Total 0.5 mg/dL (0.0-1.0); Blood Urea Nitrogen 19 mg/dL (9-16); Carbon Dioxide 27 mmol/L (22-29); Chloride 105 mmol/L (96-108); Estimated Glomerular Filt Rate > 60; Glucose Random 96 mg/dL (60-115); Potassium 4.4 mmol/L (3.3-5.1); Sodium 142 mmol/L (135-145); Total Protein 7.8 g/dL (6.5-8.0); Uric Acid 7.1 mg/dL (3.4-7.0)
[2022-06-02 11:10] LABS: Erythrocyte Sedimentation Rate 10 MM/HR (0-15)
== END 2022-06-02 09:36 | disposition home or self-care (01) ==
LOC: HO.10HDL 09:35
PROVIDERS: Visit Provider Student in an Organized Health Care Education/Training Program
DX: M10.9 Gout, unspecified (principal)
CPT/HCPCS: 36415; 80053; 84550; 85025; 85652; 86140

== ENCOUNTER → 2022-06-07 16:20 | Outpatient (BNVA) | payer OTHER, SELFPAY | PROVIDERS: PCP Nurse Practitioner Family; Visit Provider Physician Assistant Medical | DX: S83.92XD Sprain of unspecified site of left knee, subsequent encounter (principal); S76.112D Strain of left quadriceps muscle, fascia and tendon, subsequent encounter; S86.112D Strain of other muscle(s) and tendon(s) of posterior muscle group at lower leg level, left leg, subsequent encounter; V68 Occupant of heavy transport vehicle injured in noncollision transport accident | CPT/HCPCS: 99213 ==

== ENCOUNTER → 2022-07-04 15:18 | Outpatient (BNVA) | payer OTHER, SELFPAY | PROVIDERS: PCP Nurse Practitioner Family; Visit Provider Student in an Organized Health Care Education/Training Program | DX: M20.42 Other hammer toe(s) (acquired), left foot (principal); M1A.0711 Idiopathic chronic gout, right ankle and foot, with tophus (tophi) | CPT/HCPCS: 99212 ==

== ENCOUNTER 2022-07-05 09:00 | Outpatient (RCR) | payer OTHER, SELFPAY ==
[2022-06-27 08:11] VITALS: BP 120/59; PULSE 76; O2SAT 97
--- NOTE | 2022-06-27 12:01 | MHC.PT.EP ---
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 FUNCTIONALLY, Pt HAS DECR COSMO TO STANDING, SITTING , WALKING > 3 BLOCKS, REGULAR ADLs/ LIFTING/ CARRYING, AND STAIR MANAGEMENT. Pt IS MOTIVATED TO REDUCE SXS AND WOULD BENEFIT FROM PT TO ADDRESS THE ABOVE FINDINGS, PAIN MGMT, AND DEV A HEP/ SELF-SX MGMT PROGRAM. Frequency and Duration: The patient will be seen 2 x WK x 5 WKS Short Term Goals: *Pt ACHIEVE FULL LEFT KNEE EXTENSION AND FLEX TO 130* *Pt'S LEFT KNEE PAIN DECR TO 2-3/10 *Pt DEMON IMPROVED/ SYMMETRICAL STANDING STANCE AND EFFICIENT GAIT MECH ON LEVEL AND STAIRS *INITIATE HEP Detention Goals: *Pt INDEP W PROGRESSIVE HEP AND SELF-SX MGMT TECHN * Pt RESUME REG ADLs AND RTW EVIDENT W IMPROVED LEFI SCORE (AT EVAL 60/80) *Pt IMPROVE LUMBOPELVIC/ LEs STRENGTH -> PERFORM SIMUL STEP UPS/DOWNS FROM WORK TRUCK Treatment Plan: Modalities to reduce pain, spasms and effusion. Manual therapy to restore motion and function. Therapeutic exercise to improve strength and flexibility. Neuromuscular re-education for posture and balance. Therapeutic activities to return to functional activities of daily living. Electronically signed by: KATHRYN BARON,PT Please sign and return to therapist. Thank you for your referral.
--- NOTE | 2022-07-26 08:28 | MHC.PT.DC ---
[facility] [place] Office [place] Office [place] Office [address] Amber Chen 140 [facility] [phone] F: [phone] F: [phone] F: [phone] F: [phone] Physical Therapy Discharge Report Diagnosis: HYPEREXTENSION INJURY KNEE Date of Surgery: Date of Evaluation: 06/27/22 Date of Discharge: 07/26/22 Treatments to Date: 2 Cancellations to Date: 11 No Shows to Date: 1 Discharge Status: Visit Non-compliance Discharge Summary: Pt WAS MOTIV W PT AND WE MADE PROGRESS IN REDUCING HIS Lt KNEE PAIN- HE WAS CHALLENGED W QUAD/ GLUTE WORK - A PROGRESSIVE HEP WAS ESTABLISHED- Pt DID NOT ATTEND LAST FEW SCHED APPtS , AND, PER DEPT ATTENDANCE POLICY, HE IS D/C AT THIS TIME. Electronically signed by: KATHRYN BARON,PT Please sign and return to therapist. Thank you for your referral.
== END 2022-07-26 08:25 | disposition home or self-care (01) ==
LOC: HO.PT 09:00
PROVIDERS: Visit Provider Physician Assistant
DX: S89.80XA Other specified injuries of unspecified lower leg, initial encounter (principal)
CPT/HCPCS: 97110; 97140; 97162

== ENCOUNTER 2022-08-15 09:01 | Outpatient (REF) | payer OTHER, SELFPAY ==
[2022-08-15 09:16] LABS: MANUAL DIFF FLAG NO
[2022-08-15 09:28] LABS: Basophils Absolute Auto 0.1 X10*3/uL (0.0-0.2); Basophils Percent Auto 0.9 % (0-2); Eosinophils Absolute Auto 0.4 X10*3/uL (0.0-0.4); Eosinophils Percent Auto 4.1 % (0-4); Hematocrit 48.8 % (42.0-52.0); Hemoglobin 16.2 g/dl (14.0-18.0); Imm Gran Abs Auto 0.08 X10*3/uL (0.00-0.03); Imm Gran Pct Auto 0.9 % (0.0-0.4); Lymphocytes Percent Auto 43.5 % (20-40); Mean Corpuscular HGB Conc 33.2 g/dl (31.0-36.0); Mean Corpuscular Hemoglobin 29.1 pg (27.0-33.0); Mean Corpuscular Volume 87.8 fL (80.0-98.0); Mean Platelet Volume 9.7 fL (9.4-12.4); Monocytes Absolute Auto 0.7 X10*3/uL (0.1-1.2); Monocytes Percent Auto 7.5 % (2-11); Neutrophils Absolute Auto 3.9 x10*3/uL (2.0-8.3); Neutrophils Percent Auto 43.1 % (45-73); Platelet Count 303 X10*3/uL (160-400); Red Blood Count 5.56 X10*6/uL (4.60-5.80); Red Cell Distribution Width 12.5 % (11.0-16.0); White Blood Count 9.1 X10*3/uL (4.8-10.8)
[2022-08-15 09:52] LABS: Alanine Aminotransferase 29 U/L (0-40); Albumin Level 4.6 g/dL (3.5-5.0); Alkaline Phosphatase 53 U/L (39-117); Anion Gap 15 (12-20); Aspartate Amino Transferase 18 U/L (5-37); Bilirubin Total 0.6 mg/dL (0.0-1.0); Blood Urea Nitrogen 17 mg/dL (9-16); C Reactive Protein 0.08 mg/dL (< or = 0.50); Calcium 9.9 mg/dL (8.4-10.2); Carbon Dioxide 26 mmol/L (22-29); Chloride 106 mmol/L (96-108); Estimated Glomerular Filt Rate > 60; Glucose Random 97 mg/dL (60-115); Potassium 4.1 mmol/L (3.3-5.1); Sodium 143 mmol/L (135-145); Total Protein 7.6 g/dL (6.5-8.0); Uric Acid 9.8 mg/dL (3.4-7.0)
[2022-08-15 10:07] LABS: Erythrocyte Sedimentation Rate 2 MM/HR (0-15)
== END 2022-08-15 09:02 | disposition home or self-care (01) ==
LOC: HO.LAB 09:01
PROVIDERS: Visit Provider Student in an Organized Health Care Education/Training Program
DX: M10.9 Gout, unspecified (principal); Z79.899 Other long term (current) drug therapy
CPT/HCPCS: 36415; 80053; 84550; 85025; 85652; 86140

== ENCOUNTER 2022-09-13 08:12 | Outpatient (REF) | payer OTHER, SELFPAY ==
--- NOTE | ~2022-09-13 | MR_ITS ---
EXAMINATION: MR KNEE WITHOUT CONTRAST, LEFT CLINICAL INFORMATION: Left knee pain and instability following a hyperextension injury. COMPARISON: Left femoral MRI dated 05/24/2022. Left knee radiographs dated 04/18/2022. TECHNIQUE: MRI of the knee without contrast was performed using routine sequences on a high-field scanner. FINDINGS: MENISCI: Medial Meniscus: Intact Lateral Meniscus: Intact LIGAMENTS: Cruciate: Intact Collateral: Intact EXTENSOR MECHANISM: Thickening and increased T2 signal of the proximal patellar tendon consistent with mild tendinosis. Normal patellofemoral alignment. Focus of fluid interposed between the iliotibial band and lateral femoral condyle measuring approximately 1.0 x 0.5 x 0.8 cm, which could be seen in the setting of iliotibial band friction syndrome. ARTICULAR CARTILAGE/BONE: Patellofemoral Compartment: Intact articular cartilage. Medial Compartment: Intact articular cartilage. Lateral Compartment: Intact articular cartilage. Patchy foci of marrow edema within the distal femoral metaphysis, most prominent posteriorly. Additional focus of marrow edema within the medial femoral condyle. No associated fracture line. Findings could represent mild osseous contusions or stress reactions. JOINT FLUID AND BURSAE: Trace joint effusion. MR/MR knee LT wo con IMPRESSION: 1. No acute meniscal or ligamentous injury. 2. Mild proximal patellar tendinosis. 3. Focus of fluid interposed between the iliotibial band and lateral femoral condyle, which could be seen in the setting of iliotibial band friction syndrome. 4. Patchy foci of marrow edema within the distal femoral metaphysis as well as within the medial femoral condyle. Findings could represent mild osseous contusions or stress reactions. No associated fracture line. 5. Trace joint effusion.
== END 2022-09-13 08:13 | disposition home or self-care (01) ==
LOC: HO.MRI 08:12
PROVIDERS: Visit Provider Physician Assistant
DX: S89.82XA Other specified injuries of left lower leg, initial encounter (principal); S83.512A Sprain of anterior cruciate ligament of left knee, initial encounter; X58.XXXA Exposure to other specified factors, initial encounter; Y93.9 Activity, unspecified; Y92.9 Unspecified place or not applicable; Y99.9 Unspecified external cause status
CPT/HCPCS: 73721

== ENCOUNTER → 2022-09-18 09:40 | Outpatient (BNVA) | payer OTHER, SELFPAY | PROVIDERS: PCP Nurse Practitioner Family; Visit Provider Physician Assistant | DX: M76.32 Iliotibial band syndrome, left leg (principal); Z98.890 Other specified postprocedural states | CPT/HCPCS: 99212 ==

== ENCOUNTER → 2023-01-02 15:22 | Outpatient (BNVA) | payer SELFPAY | PROVIDERS: PCP Nurse Practitioner Family; Visit Provider Internal Medicine | DX: Z02.79 Encounter for issue of other medical certificate (principal) ==

== ENCOUNTER → 2023-02-21 08:49 | Outpatient (BNVA) | payer OTHER, SELFPAY | PROVIDERS: PCP Nurse Practitioner Family; Visit Provider Physician Assistant | DX: S40.012A Contusion of left shoulder, initial encounter (principal); W22.09XA Striking against other stationary object, initial encounter | CPT/HCPCS: 73010; 73030; 99204 ==

== ENCOUNTER → 2023-02-26 14:12 | Outpatient (BNVA) | payer OTHER, SELFPAY | PROVIDERS: PCP Nurse Practitioner Family; Visit Provider Physician Assistant Medical | DX: S40.012A Contusion of left shoulder, initial encounter (principal); S33.9XXA Sprain of unspecified parts of lumbar spine and pelvis, initial encounter; X58.XXXA Exposure to other specified factors, initial encounter | CPT/HCPCS: 99213 ==

== ENCOUNTER → 2023-03-06 10:24 | Outpatient (BNVA) | payer OTHER, SELFPAY | PROVIDERS: PCP Nurse Practitioner Family; Visit Provider Physician Assistant Medical | DX: S40.012A Contusion of left shoulder, initial encounter (principal); S39.012A Strain of muscle, fascia and tendon of lower back, initial encounter; W22.09XA Striking against other stationary object, initial encounter | CPT/HCPCS: 99213 ==

== ENCOUNTER → 2023-03-08 15:32 | Outpatient (BNVA) | payer OTHER, MEDICAID, SELFPAY | PROVIDERS: PCP Nurse Practitioner Family; Visit Provider Student in an Organized Health Care Education/Training Program | DX: M1A.0711 Idiopathic chronic gout, right ankle and foot, with tophus (tophi) (principal); M20.42 Other hammer toe(s) (acquired), left foot | CPT/HCPCS: 99212 ==

== ENCOUNTER 2023-03-09 12:04 | Outpatient (REF) | payer OTHER, SELFPAY ==
[2023-03-09 12:17] LABS: MANUAL DIFF FLAG NO
[2023-03-09 13:10] LABS: Basophils Absolute Auto 0.1 X10*3/uL (0.0-0.2); Basophils Percent Auto 0.7 % (0-2); Eosinophils Absolute Auto 0.1 X10*3/uL (0.0-0.4); Eosinophils Percent Auto 1.5 % (0-4); Hematocrit 50.7 % (42.0-52.0); Hemoglobin 16.4 g/dl (14.0-18.0); Imm Gran Abs Auto 0.02 X10*3/uL (0.00-0.03); Imm Gran Pct Auto 0.3 % (0.0-0.4); Lymphocytes Absolute Auto 2.8 X10*3/uL (1.2-4.9); Lymphocytes Percent Auto 38.5 % (20-40); Mean Corpuscular HGB Conc 32.3 g/dl (31.0-36.0); Mean Corpuscular Hemoglobin 29.2 pg (27.0-33.0); Mean Corpuscular Volume 90.2 fL (80.0-98.0); Mean Platelet Volume 9.9 fL (9.4-12.4); Monocytes Absolute Auto 0.5 X10*3/uL (0.1-1.2); Monocytes Percent Auto 6.5 % (2-11); Neutrophils Absolute Auto 3.8 x10*3/uL (2.0-8.3); Neutrophils Percent Auto 52.5 % (45-73); Platelet Count 293 X10*3/uL (160-400); Red Blood Count 5.62 X10*6/uL (4.60-5.80); Red Cell Distribution Width 12.6 % (11.0-16.0); White Blood Count 7.2 X10*3/uL (4.8-10.8)
[2023-03-09 13:36] LABS: Estimated Average Glucose 88 mg/dL; Hemoglobin A1c % 4.7 %
[2023-03-09 13:49] LABS: Alanine Aminotransferase 18 U/L (0-40); Albumin Level 4.4 g/dL (3.5-5.0); Alkaline Phosphatase 54 U/L (39-117); Anion Gap 10 (12-20); Aspartate Amino Transferase 17 U/L (5-37); Bilirubin Total 0.8 mg/dL (0.0-1.0); Blood Urea Nitrogen 14 mg/dL (9-16); Calcium 10.5 mg/dL (8.4-10.2); Carbon Dioxide 32 mmol/L (22-29); Chloride 105 mmol/L (96-108); Cholesterol 176 mg/dL; Estimated Glomerular Filt Rate > 60; Glucose Random 67 mg/dL (60-115); HDL Cholesterol 61 mg/dL; LDL Cholesterol Calculated 90 mg/dl; Potassium 4.2 mmol/L (3.3-5.1); Sodium 143 mmol/L (135-145); Total Protein 7.5 g/dL (6.5-8.0); Triglycerides 126 mg/dL; Uric Acid 5.8 mg/dL (3.4-7.0)
== END 2023-03-09 12:05 | disposition home or self-care (01) ==
LOC: HO.LAB 12:04
PROVIDERS: Visit Provider Student in an Organized Health Care Education/Training Program
DX: E88.81 Metabolic syndrome and other insulin resistance (principal); M10.9 Gout, unspecified
CPT/HCPCS: 36415; 80053; 80061; 83036; 84550; 85025

== ENCOUNTER → 2023-03-13 09:31 | Outpatient (BNVA) | payer OTHER, SELFPAY | PROVIDERS: PCP Nurse Practitioner Family; Visit Provider Physician Assistant Medical | DX: S40.012A Contusion of left shoulder, initial encounter (principal); S33.9XXA Sprain of unspecified parts of lumbar spine and pelvis, initial encounter; W22.09XA Striking against other stationary object, initial encounter | CPT/HCPCS: 99213 ==

== ENCOUNTER → 2023-03-28 11:53 | Outpatient (BNVA) | payer OTHER, SELFPAY | PROVIDERS: PCP Nurse Practitioner Family; Visit Provider Physician Assistant | DX: S40.012D Contusion of left shoulder, subsequent encounter (principal); W22.09XD Striking against other stationary object, subsequent encounter | CPT/HCPCS: 99213 ==

== ENCOUNTER → 2023-04-19 13:11 | Outpatient (BNVA) | payer OTHER, SELFPAY | PROVIDERS: PCP Nurse Practitioner Family; Visit Provider Physician Assistant | DX: S40.012D Contusion of left shoulder, subsequent encounter (principal); W22.09XD Striking against other stationary object, subsequent encounter | CPT/HCPCS: 99213 ==

== ENCOUNTER 2023-05-03 14:00 | Outpatient (RCR) | payer OTHER, SELFPAY ==
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
== END 2023-06-07 07:56 | disposition home or self-care (01) ==
LOC: HO.PT 14:00
PROVIDERS: PCP Nurse Practitioner Family; Visit Provider Physician Assistant Medical
DX: M24.512 Contracture, left shoulder (principal); S46.812D Strain of other muscles, fascia and tendons at shoulder and upper arm level, left arm, subsequent encounter
CPT/HCPCS: 97110; 97140; 97161

== ENCOUNTER 2023-05-09 17:36 | Outpatient (REF) | payer OTHER, SELFPAY ==
--- NOTE | ~2023-05-09 | MR_ITS ---
EXAMINATION: MRI OF THE LEFT CHEST WITHOUT CONTRAST CLINICAL INFORMATION: Contusion pain. Patient reports posterior shoulder pain with limited range of motion. COMPARISON: MRI of the left shoulder performed same day. TECHNIQUE: MRI of the left chest was performed without contrast FINDINGS: SUBCUTANEOUS SOFT TISSUES: Normal. MUSCLES/TENDONS: Pectoralis muscle and distal tendon are intact. Remaining muscles and tendons are intact. NEUROVASCULAR STRUCTURES: Normal. BONE/CARTILAGE: Normal. LIGAMENTS AND CAPSULAR STRUCTURES: Normal. Partially assessed left lung and mediastinum unremarkable. MR/MR chest wo con IMPRESSION: Normal MRI of the left chest.
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
== END 2023-05-09 17:37 | disposition home or self-care (01) ==
LOC: HO.MRI 17:36
PROVIDERS: PCP Nurse Practitioner Family; Visit Provider Physician Assistant Medical
DX: M25.512 Pain in left shoulder (principal)
CPT/HCPCS: 71550; 73221

== ENCOUNTER → 2023-05-11 11:55 | Outpatient (BNVA) | payer OTHER, SELFPAY | PROVIDERS: PCP Nurse Practitioner Family; Visit Provider Physician Assistant | DX: S40.012D Contusion of left shoulder, subsequent encounter (principal); W22.09XD Striking against other stationary object, subsequent encounter; M62.89 Other specified disorders of muscle | CPT/HCPCS: 99213 ==

== ENCOUNTER 2023-06-26 12:27 | Outpatient (REF) | payer OTHER, MEDICAID, SELFPAY ==
[2023-06-26 13:19] LABS: MANUAL DIFF FLAG NO
[2023-06-26 13:32] LABS: Basophils Absolute Auto 0.1 X10*3/uL (0.0-0.2); Basophils Percent Auto 1.1 % (0-2); Eosinophils Absolute Auto 0.6 X10*3/uL (0.0-0.4); Eosinophils Percent Auto 7.6 % (0-4); Hematocrit 47.6 % (42.0-52.0); Hemoglobin 15.6 g/dl (14.0-18.0); Imm Gran Abs Auto 0.03 X10*3/uL (0.00-0.03); Imm Gran Pct Auto 0.4 % (0.0-0.4); Lymphocytes Absolute Auto 2.9 X10*3/uL (1.2-4.9); Lymphocytes Percent Auto 36.7 % (20-40); Mean Corpuscular HGB Conc 32.8 g/dl (31.0-36.0); Mean Corpuscular Hemoglobin 30.1 pg (27.0-33.0); Mean Corpuscular Volume 91.7 fL (80.0-98.0); Mean Platelet Volume 10.3 fL (9.4-12.4); Monocytes Absolute Auto 0.7 X10*3/uL (0.1-1.2); Monocytes Percent Auto 8.5 % (2-11); Neutrophils Absolute Auto 3.6 x10*3/uL (2.0-8.3); Neutrophils Percent Auto 45.7 % (45-73); Platelet Count 291 X10*3/uL (160-400); Red Blood Count 5.19 X10*6/uL (4.60-5.80); Red Cell Distribution Width 12.5 % (11.0-16.0); White Blood Count 7.9 X10*3/uL (4.8-10.8)
[2023-06-26 14:01] LABS: Alanine Aminotransferase 21 U/L (0-40); Albumin Level 4.5 g/dL (3.5-5.0); Alkaline Phosphatase 53 U/L (39-117); Anion Gap 11 (12-20); Aspartate Amino Transferase 23 U/L (5-37); Bilirubin Total 0.5 mg/dL (0.0-1.0); Blood Urea Nitrogen 17 mg/dL (9-16); Calcium 10.1 mg/dL (8.4-10.2); Carbon Dioxide 30 mmol/L (22-29); Chloride 107 mmol/L (96-108); Estimated Glomerular Filt Rate > 60; Glucose Random 75 mg/dL (60-115); Potassium 3.8 mmol/L (3.3-5.1); Sodium 144 mmol/L (135-145); Total Protein 7.6 g/dL (6.5-8.0); Uric Acid 8.8 mg/dL (3.4-7.0)
== END 2023-06-26 12:28 | disposition home or self-care (01) ==
LOC: HO.10HDL 12:27
PROVIDERS: Visit Provider Student in an Organized Health Care Education/Training Program
DX: M10.9 Gout, unspecified (principal)
CPT/HCPCS: 36415; 80053; 84550; 85025

== ENCOUNTER 2023-08-09 09:04 | Outpatient (AMB) | payer OTHER, MEDICAID, SELFPAY ==
[2023-08-09 09:13] VITALS: BP 138/80; PULSE 84; O2SAT 99; BMI 30.5
--- NOTE | 2023-08-09 09:13 | MHC.PC.OV ---
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 take 3 tabs daily for 2 days then 2 tabs for 2 days then 1 tab for 2 days then stop Tobacco use date assessed: 08/09/23 Dental Screening Dental Screen Date: 08/09/23 Did you have a dental visit in the last 12 months?: Yes Did you have a dental problem in the last 6 months where you did not have access to dental care?: No Was dental information given to patient?: Patient has dentist HPI Gout F/U HPI Details Patient is a 33-year-old male presents today for a routine follow-up. Medical history significant for gout-followed by Rheumatology - denies recent gout flareup, obesity, headaches-reports almost daily headaches for the past 6 months - reports intermittent sensitivity to light-feels better in dark room-take Tylenol with mild improvement-headache 7/10 scale presently. Reports ongoing intermittent numbness in his fingers. Reports random intermittent palpitations for over 1 month now, no shortness of breath or chest pain. He also reports acid reflux and burning in his neck for the past some time-does not take anything for acid reflux. Requesting imaging due to headaches. Denies changes in bowel/bladder. [facility] Medical History Encounter to establish care Surgical History Hx of appendectomy Family History Mother No problems noted. Father No problems noted. 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 How often do you have a drink containing alcohol?: 2-4 times a month 2. How many drinks containing alcohol do you have on a typical day when you are drinking?: 1 or 2 3. How often do you have six or more drinks on one occasion?: Never Total Score: 2 Score Reviewed/Action Taken: No DIONICIO-7 AMB Questionnaire DIONICIO-7 Date DIONICIO - 7 assessed: 10/12/22 Source: Developed by Drs. Carlos Schroeder, Sarah Abbott, Lew Rivas and colleagues, with an educational donald from [employer]. Review of Systems Const Denies body aches, Denies chills, Denies fever(s) and Reports headache(s) Eyes Denies change in vision ENT Denies dizziness, Denies otalgia, Reports headache(s), Denies nasal discharge, Denies sinus pain and Denies sore throat Card Denies chest pain, Denies edema, Denies lightheadedness, Reports palpitations (not now ) and Denies dyspnea Resp Denies cough, Denies dyspnea and Denies wheezing GI Denies abdominal pain, Denies constipation, Reports heartburn, Denies diarrhea, Denies nausea and Denies vomiting Denies dysuria Musc Denies myalgias Skin/Breast Denies rash Neuro Denies dizziness and Reports headache(s) Endo Reports palpitations (not now ) Aller/Immun Denies wheezing Physical exam (Primary Care) Vital Signs: Last Vital Signs Pulse 84 08/09/23 09:13 BP 138/80 08/09/23 09:13 Pulse Ox 99 08/09/23 09:13 Oxygen Delivery Method Room Air 08/09/23 09:13 BMI result Body Mass Index 30.5 Tobacco/Smoking Status: Tobacco use Status Tobacco use date assessed 08/09/23 08/09/23 09:17 Patient Tobacco Use Status Never used Tobacco 08/09/23 09:17 e-Cigarette/Vaping Use Never Used 08/09/23 09:17 Thrive Assessment: Date of Thrive Assessment Date Thrive assessed 10/12/22 08/09/23 09:17 Const General: cooperative and no acute distress Orientation/consciousness: patient oriented x3 HENMT Head: Yes normocephalic and Yes atraumatic Face and sinus: Yes sinuses nontender Mouth: oropharynx normal and moist mucous membranes Throat: Yes posterior oropharynx normal Eyes General: appearance normal, both eyes and all related structures Pupils: Equal, round and reactive pupils present EOM: EOMs intact bilaterally Neck Neck: Yes normal visual inspection, Yes full ROM and Yes no lymphadenopathy Resp Effort & Inspection: normal respiratory effort and able to speak in complete sentences Auscultation: clear to auscultation bilaterally, no crackles, no rales, no rhonchi and no wheezes Cardio Rate: regular rate Rhythm: regular rhythm Heart sounds: S1 normal heart sound present, S2 normal heart sound present and no murmurs GI Palpation (GI): Soft to palpation, not firm, nontender, no guarding, not rigid and no hepatosplenomegaly Auscultation: normal bowel sounds Skin General skin exam: no rashes or lesions noted Neuro General: patient oriented x3 and CN's II-XI intact bilaterally Cranial nerves: Yes Equal, round and reactive pupils present Gait exam (Neuro): Normal gait present Motor exam (neuro): 5/5 motor strength present throughout Extrem General: Yes full ROM Assessment and Plan Assessment & Plan (1) Intermittent palpitations: Code(s): R00.2 - Palpitations Plan: Will obtain EKG Signs and symptoms reviewed when to notify provider or go to the emergency department (2) GERD (gastroesophageal reflux disease): Code(s): K21.9 - Gastro-esophageal reflux disease without esophagitis Plan: Start omeprazole for 2 months Avoid GERD trigger foods Do not lay down 2-3 hours after evening meal Keep appointment in the office as scheduled (3) Headache: Code(s): R51.9 - Headache, unspecified Plan: Physical exam with no acute findings Start sumatriptan p.r.n.-educated about possible adverse reactions and when to notify provider Continue Tylenol 1000 mg every 6 hours as needed Will obtain CT scan Signs and symptoms reviewed when to notify provider or go to the emergency department (4) Gout: Code(s): M10.9 - Gout, unspecified Qualifiers: Gout site: foot Gout etiology: idiopathic Chronicity: chronic Presence of tophus: with tophus Qualified Code(s): M1A.0711 - Idiopathic chronic gout, right ankle and foot, with tophus (tophi) Plan: Stable with current treatment Continue to follow-up with rheumatology as scheduled Orders: Orders CT head/brain wo IV con Today R51.9 - Headache, unspecified ECG 12 lead EKG Today R00.2 - Palpitations Medications: New sumatriptan succinate take 1 tab at onset of headache; if no relief may repeat 1 tab after at least 2 hrs; max = 4 tabs/24 hr PO 10 tabs 0RF R51.9 - Headache, unspecified omeprazole 20 mg PO DAILY 30 caps 1RF K21.9 - Gastro-esophageal reflux disease without esophagitis Coding Level of Care Code Est Pt Level 4 (53849) Diagnoses Intermittent palpitations R00.2 GERD (gastroesophageal reflux disease) K21.9 Headache R51.9 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
== END 2023-08-09 09:45 | disposition home or self-care (01) ==
PROVIDERS: PCP Nurse Practitioner Family; Visit Provider Nurse Practitioner Family
DX: R00.2 Palpitations (principal); K21.9 Gastro-esophageal reflux disease without esophagitis; R51.9 Headache, unspecified; M1A.0711 Idiopathic chronic gout, right ankle and foot, with tophus (tophi)
CPT/HCPCS: 99214

== ENCOUNTER 2023-08-28 15:11 | Outpatient (AMB) | payer OTHER, SELFPAY ==
--- NOTE | 2023-08-28 15:18 | A.OFFVIS_ITS ---
Intake Vital Signs 08/28/23 15:20 Height 5 ft 11 in Weight 221 lb 5.506 oz BMI 30.9 BP 124/68 Blood Pressure Location Rt brachial Position Sitting Pulse 84 Pulse Source Pulse Oximeter Temp 97.8 F Temp Source Skin Pulse Oximetry (%) 97 Oxygen Delivery Method Room Air Intake Visit Reasons: Gout Intake Note: Pt last seen 03/08/23, presents today for follow up and test results. On Allopurinol 300mg, colchicine prn. Today he reports flare up left foot approx 2 days ago, took prednisone. He does consume alcohol, red meats etc; states he tries but it is hard to maintain uric acid at goal. Referred to [place] [facility] a year ago for left foot hammertoe, has not heard about consult.. 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 Accompanied by: Self / Same As Patient Allergies ciprofloxacin [Cipro] Allergy (Unknown, Verified 08/28/23 15:23) rash sulindac [SULINDAC] Allergy (Unknown, Verified 08/28/23 15:23) ITCHING, Rash/swelling on face indomethacin Adverse Reaction (Unknown, Verified 08/28/23 15:23) stomach upset Medication List - Last Reconciled 08/28/23 by Kael James MD acetaminophen (Tylenol Extra Strength) 1,000 mg PO Q6H PRN allopurinol 300 mg PO DAILY allopurinol 200 mg (2 x 100 mg) PO DAILY colchicine (gout) 0.6 mg PO BID cyclobenzaprine 10 mg PO TID PRN cyclobenzaprine 10 mg PO BID PRN omeprazole 20 mg PO DAILY prednisone orally; for gout flares only. take 3 tabs daily for 3 days then 2 tabs for 3 days then 1 tab for 3 days then stop sumatriptan succinate take 1 tab at onset of headache; if no relief may repeat 1 tab after at least 2 hrs; max = 4 tabs/24 hr PO HPI HPI Comments History of Present Illness Details 33-year-old patient with gout is here fo r follow-up. Last seen 02/2023. Over the last 6 months patient has been taking allopurinol 300 mg daily. Has not been using the colchicine. He has had 2 flare-ups since last visit, last flare-up was 3 days ago when he had abrupt onset of left big to pain and swelling as well as pain and swelling the right foot dorsum. 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 He takes prednisone at the onset of the attack which does seem to help. Today he is having minimal pain in the left big toe. Initial history: 31-year-old male with past medical history of gout diagnosed about 5-6 years ago. He would have his attacks usually in the 1st MTPs of both feet. Occasionally it would affect his knees as well. Attacks are usually associated with alcohol consumption. He stopped alcohol drinking over the last 2 years. Was recently seen by his primary provider and was started on allopurinol 200 mg daily as well as colchicine 0.6 mg Twice daily and meloxicam as needed. He denies ever having kidney stones. Denies blood in the urine. Currently he has a flare of both MTPs and it significantly limits his ability to wear shoes, he works for [employer], and he has to wear heavy boots for his job and his toes are quite painful especially with gout flares. [facility] other [facility] Medical History Encounter to establish care Surgical History Hx of appendectomy Family History Mother No problems noted. Father No problems noted. 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 Cognitive needs: No Hearing needs: No Vision needs: No Review of Systems Musc Reports arthralgias and Reports joint swelling Physical Exam Vital Signs: Last Vital Signs Temp 97.8 F 08/28/23 15:20 Pulse 84 08/28/23 15:20 BP 124/68 08/28/23 15:20 Pulse Ox 97 08/28/23 15:20 Oxygen Delivery Method Room Air 08/28/23 15:20 BMI result Body Mass Index 30.9 Const General: cooperative, healthy appearing, comfortable, no acute distress and well developed Nutritional Appearance: average body habitus Orientation/consciousness: patient oriented x3 HEENT Other: Moist oral mucosa, no oral ulcers, right ear pinna with a small tophus Similar small tophi on the left ear Neck Other: No cervical lymphadenopathy Resp Effort & Inspection: normal respiratory effort and able to speak in complete sentences Skin General skin exam: no rashes or lesions noted Neuro General: patient oriented x3 Extrem Other: No synovitis of hands. Bilateral foot hammertoes Left foot bunion with some redness and minimal swelling and tenderness to palpation. Results Reviewed Results Reviewed: MR knee LT wo con IMPRESSION: 1.? No acute meniscal or ligamentous injury. 2.? Mild proximal patellar tendinosis. 3.? Focus of fluid interposed between the iliotibial band and lateral femoral condyle, which could be seen in the setting of iliotibial band friction syndrome. 4.? Patchy foci of marrow edema within the distal femoral metaphysis as well as within the medial femoral condyle. Findings could represent mild osseous contusions or stress reactions. No associated fracture line. 5.? Trace joint effusion. Assessment & Plan Assessment & Plan (1) Gout: Code(s): M10.9 - Gout, unspecified Qualifiers: Gout site: foot Gout etiology: idiopathic Chronicity: chronic Presence of tophus: with tophus Qualified Code(s): M1A.0711 - Idiopathic chronic gout, right ankle and foot, with tophus (tophi) Plan: 33-year-old male with history of gout diagnosed around 2017 with flares usually affecting bilateral 1st MTPs and knees, no history of kidney stones. He is on allopurinol 300 mg daily and colchicine as needed. Patient has had 2 flare-ups since last visit. Uric acid level 8.8. Will need to increase his allopurinol. Will need to restart colchicine for prophylaxis. Restart colchicine 0.6 mg Twice daily. Increase allopurinol to 400 mg daily 1 week from today, stay on 400 mg for 2 weeks then take 500 mg daily Prednisone taper as needed for flare-ups. 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 I had suggested consultation with a judicial reporter but patient has not done so. I re-referred patient to Podiatry Plan I spent 26 minutes reviewing patient's chart, evaluating patient, ordering diagnostic workup, counseling patient and documenting in the chart Orders: Orders Comprehensive Met. Panel 3 Months M10.9 - Gout, unspecified Erythrocyte Sedimentation Rate 3 Months M10.9 - Gout, unspecified Uric Acid 3 Months M10.9 - Gout, unspecified Complete Blood Count Auto Diff 3 Months M10.9 - Gout, unspecified C Reactive Protein 3 Months M10.9 - Gout, unspecified Referrals Podiatry Referral M20.42 - Other hammer toe(s) (acquired), left foot Medications: New allopurinol Combine with Allopurinol 300 mg tablet for a total of 500 mg daily 200 mg (2 x 100 mg) PO DAILY 180 tabs 1RF Changed From colchicine (gout) 0.6 mg PO Q12H PRN 180 tabs 0RF for pain To colchicine (gout) 0.6 mg PO BID 180 tabs 1RF for pain From allopurinol 300 mg PO DAILY 90 tabs 1RF To allopurinol Combine with 2 X 100 mg allopurinol tablets for a total dose of 500 mg daily 300 mg PO DAILY 90 tabs 1RF From prednisone orally; for gout flares only. take 3 tabs daily for 2 days then 2 tabs for 2 days then 1 tab for 2 days then stop 50 tabs 0RF To prednisone orally; for gout flares only. 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
[2023-08-28 15:20] VITALS: BP 124/68; PULSE 84; TEMP 36.6; O2SAT 97; BMI 30.9
== END 2023-08-28 15:46 | disposition home or self-care (01) ==
PROVIDERS: PCP Nurse Practitioner Family; Visit Provider Student in an Organized Health Care Education/Training Program
DX: M1A.0711 Idiopathic chronic gout, right ankle and foot, with tophus (tophi) (principal); M20.42 Other hammer toe(s) (acquired), left foot
CPT/HCPCS: 99214

== ENCOUNTER → 2023-08-28 15:11 | Outpatient (BNVA) | payer OTHER, SELFPAY | PROVIDERS: PCP Nurse Practitioner Family; Visit Provider Student in an Organized Health Care Education/Training Program ==

== ENCOUNTER → 2023-11-15 12:05 | Outpatient (BNVA) | payer OTHER, SELFPAY | PROVIDERS: PCP Nurse Practitioner Family; Visit Provider Physician Assistant | DX: S93.431A Sprain of tibiofibular ligament of right ankle, initial encounter (principal); X58.XXXA Exposure to other specified factors, initial encounter | CPT/HCPCS: 99203 ==

== ENCOUNTER → 2023-11-29 09:18 | Outpatient (BNVA) | payer OTHER, SELFPAY | PROVIDERS: PCP Nurse Practitioner Family; Visit Provider Physician Assistant | DX: S93.431A Sprain of tibiofibular ligament of right ankle, initial encounter (principal); X58.XXXA Exposure to other specified factors, initial encounter | CPT/HCPCS: 99213 ==

== ENCOUNTER 2023-12-07 11:25 | Outpatient (REF) | payer OTHER, SELFPAY ==
[2023-12-07 13:18] LABS: MANUAL DIFF FLAG NO
[2023-12-07 13:28] LABS: Basophils Absolute Auto 0.1 X10*3/uL (0.0-0.2); Basophils Percent Auto 0.9 % (0-2); Eosinophils Absolute Auto 0.2 X10*3/uL (0.0-0.4); Eosinophils Percent Auto 2.2 % (0-4); Hematocrit 49.2 % (42.0-52.0); Hemoglobin 16.7 g/dl (14.0-18.0); Imm Gran Abs Auto 0.07 X10*3/uL (0.00-0.03); Imm Gran Pct Auto 0.8 % (0.0-0.4); Lymphocytes Absolute Auto 3.4 X10*3/uL (1.2-4.9); Lymphocytes Percent Auto 39.3 % (20-40); Mean Corpuscular HGB Conc 33.9 g/dl (31.0-36.0); Mean Corpuscular Hemoglobin 30.1 pg (27.0-33.0); Mean Corpuscular Volume 88.6 fL (80.0-98.0); Mean Platelet Volume 9.7 fL (9.4-12.4); Monocytes Absolute Auto 0.6 X10*3/uL (0.1-1.2); Monocytes Percent Auto 7.4 % (2-11); Neutrophils Absolute Auto 4.2 x10*3/uL (2.0-8.3); Neutrophils Percent Auto 49.4 % (45-73); Platelet Count 326 X10*3/uL (160-400); Red Blood Count 5.55 X10*6/uL (4.60-5.80); White Blood Count 8.6 X10*3/uL (4.8-10.8)
[2023-12-07 14:09] LABS: Erythrocyte Sedimentation Rate 4 MM/HR (0-15)
[2023-12-07 14:21] LABS: Alanine Aminotransferase 26 U/L (0-40); Albumin Level 4.6 g/dL (3.5-5.0); Alkaline Phosphatase 59 U/L (39-117); Anion Gap 12 (12-20); Aspartate Amino Transferase 18 U/L (5-37); Bilirubin Total 0.6 mg/dL (0.0-1.0); Blood Urea Nitrogen 17 mg/dL (9-16); C Reactive Protein < 0.10 mg/dL (< or = 0.50); Calcium 9.8 mg/dL (8.4-10.2); Carbon Dioxide 28 mmol/L (22-29); Chloride 104 mmol/L (96-108); Estimated Glomerular Filt Rate > 60; Glucose Random 86 mg/dL (60-115); Potassium 4.2 mmol/L (3.3-5.1); Sodium 140 mmol/L (135-145); Uric Acid 11.9 mg/dL (3.4-7.0)
== END 2023-12-07 11:26 | disposition home or self-care (01) ==
LOC: HO.10HDL 11:25
PROVIDERS: Visit Provider Student in an Organized Health Care Education/Training Program
DX: M10.9 Gout, unspecified (principal)
CPT/HCPCS: 36415; 80053; 84550; 85025; 85652; 86140

== ENCOUNTER 2023-12-10 15:55 | Outpatient (AMB) | payer OTHER, SELFPAY ==
[2023-12-10 15:56] VITALS: BP 122/84; PULSE 89; O2SAT 96; BMI 30.2
--- NOTE | 2023-12-10 15:56 | MHC.OFFVIS ---
Intake Vital Signs 12/10/23 15:56 Height 5 ft 11 in Weight 216 lb 4.375 oz BMI 30.2 BP 122/84 Blood Pressure Location Rt brachial Position Sitting Pulse 89 Pulse Source Pulse Oximeter Pulse Oximetry (%) 96 Oxygen Delivery Method Room Air Intake Visit Reasons: Gout Intake Note: Patient last seen 08/28/23 presents today for follow up and test results. 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 Required: No Accompanied by: Self / Same As Patient Allergies ciprofloxacin [Cipro] Allergy (Unknown, Verified 12/10/23 16:02) rash sulindac [SULINDAC] Allergy (Unknown, Verified 12/10/23 16:02) ITCHING, Rash/swelling on face indomethacin Adverse Reaction (Unknown, Verified 12/10/23 16:02) stomach upset Medication List - Last Reconciled 12/10/23 by Kael James MD acetaminophen (Tylenol Extra Strength) 1,000 mg PO Q6H PRN allopurinol 300 mg PO DAILY allopurinol 200 mg (2 x 100 mg) PO DAILY colchicine 0.6 mg PO BID cyclobenzaprine 10 mg PO BID PRN omeprazole 20 mg PO DAILY prednisone orally ; for gout flares only. take 3 tabs daily for 3 days then 2 tabs for 3 days then 1 tab for 3 days then stop PRN; sumatriptan succinate take 1 tab at onset of headache; if no relief may repeat 1 tab after at least 2 hrs; max = 4 tabs/24 hr PO HPI HPI Comments History of Present Illness Details 33-year-old patient with gout is here for follow-up. Patient stated that he was taking allopurinol finished all the allopurinol bottle she has at home, but ran out last month. He has not been taking allopurinol for more than a month. He has ran out of colchicine. He states that he has been feeling very well. Has not had any gout flare-ups. Has been working out and watching his diet. He sprained his ankle recently and went to [facility], his right ankle was in a boot. He has not been consuming any alcohol. Initial history: 31-year-old male with past medical history of gout diagnosed about 5-6 years ago. He would have his attacks usually in the 1st MTPs of both feet. Occasionally it would affect his knees as well. Attacks are usually associated with alcohol consumption. He stopped alcohol drinking over the last 2 years. Was recently seen by his primary provider and was started on allopurinol 200 mg daily as well as colchicine 0.6 mg Twice daily and meloxicam as needed. He denies ever having kidney stones. Denies blood in the urine. Currently he has a flare of both MTPs and it significantly limits his ability to wear shoes, he works for [employer], and he has to wear heavy boots for his job and his toes are quite painful especially with gout flares. He denies any other symptoms [facility] Medical History Encounter to establish care Surgical History Hx of appendectomy Family History Mother No problems noted. Father No problems noted. 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 Cognitive needs: No Hearing needs: No Vision needs: No Review of Systems Musc Denies arthralgias, Denies joint swelling and Denies stiffness Physical Exam Vital Signs: Last Vital Signs Pulse 89 12/10/23 15:56 BP 122/84 12/10/23 15:56 Pulse Ox 96 12/10/23 15:56 Oxygen Delivery Method Room Air 12/10/23 15:56 BMI result Body Mass Index 30.2 Const General: cooperative, healthy appearing, comfortable, no acute distress and well developed Nutritional Appearance: average body habitus Orientation/consciousness: patient oriented x3 HEENT Other: Moist oral mucosa, no oral ulcers, right ear pinna with a small tophus Similar small tophi on the left ear Neck Other: No cervical lymphadenopathy Resp Effort & Inspection: normal respiratory effort and able to speak in complete sentences Skin General skin exam: no rashes or lesions noted Neuro General: patient oriented x3 Extrem Other: Bilateral foot hammertoes No active synovitis Results Reviewed Results Reviewed: MR knee LT wo con IMPRESSION: 1.? No acute meniscal or ligamentous injury. 2.? Mild proximal patellar tendinosis. 3.? Focus of fluid interposed between the iliotibial band and lateral femoral condyle, which could be seen in the setting of iliotibial band friction syndrome. 4.? Patchy foci of marrow edema within the distal femoral metaphysis as well as within the medial femoral condyle. Findings could represent mild osseous contusions or stress reactions. No associated fracture line. 5.? Trace joint effusion. Assessment & Plan Assessment & Plan (1) Gout: Code(s): M10.9 - Gout, unspecified Qualifiers: Gout site: foot Gout etiology: idiopathic Chronicity: chronic Presence of tophus: with tophus Qualified Code(s): M1A.0711 - Idiopathic chronic gout, right ankle and foot, with tophus (tophi) Plan: 33-year-old male with history of gout diagnosed around 2017 with flares usually affecting bilateral 1st MTPs and knees, no history of kidney stones. Has not had any flare-ups since last visit Patient ran out of his allopurinol last month. He has not been taking allopurinol or colchicine. Uric acid level is 11.9. Today we had a prolonged conversation about gout and the importance of medication compliance. Restart allopurinol 500 mg daily Colchicine 0.6 mg daily prophylaxis for 1 month then 0.6 mg every other day Labs before next visit in 3 months Plan I spent 20 minutes reviewing patient's chart, evaluating patient, ordering diagnostic workup, counseling patient and documenting in the chart Orders: Orders C Reactive Protein 3 Months M10.9 - Gout, unspecified Complete Blood Count Auto Diff 3 Months M10.9 - Gout, unspecified Comprehensive Met. 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
== END 2023-12-10 16:25 | disposition home or self-care (01) ==
PROVIDERS: PCP Nurse Practitioner Family; Visit Provider Student in an Organized Health Care Education/Training Program
DX: M1A.0711 Idiopathic chronic gout, right ankle and foot, with tophus (tophi) (principal)
CPT/HCPCS: 99213

== ENCOUNTER → 2023-12-10 15:55 | Outpatient (BNVA) | payer OTHER, SELFPAY | PROVIDERS: PCP Nurse Practitioner Family; Visit Provider Student in an Organized Health Care Education/Training Program ==

== ENCOUNTER 2024-06-27 11:20 | Outpatient (AMB) | payer BC, SELFPAY ==
--- NOTE | 2024-06-27 11:27 | MHC.PC.OV ---
Vital Signs 06/27/24 11:38 Height 5 ft 11 in Weight 222 lb 2 oz BMI 31.0 BP 110/74 Blood Pressure Location Rt brachial Position Sitting Respiration 16 Pulse 86 Pulse Source Pulse Oximeter Temp 97.9 F Temp Source Oral Pulse Oximetry (%) 97 Oxygen Delivery Method Room Air Intake Visit Reasons: Transfer care [facility]/ Stomach issues Intake Note: patient her for new patient visit transferring from [facility] c/o stomach issues Line Manager Required: No Allergies ciprofloxacin [Cipro] Allergy (Unknown, Verified 06/27/24 11:48) rash sulindac [SULINDAC] Allergy (Unknown, Verified 06/27/24 11:48) ITCHING, Rash/swelling on face indomethacin Adverse Reaction (Unknown, Verified 06/27/24 11:48) stomach upset Medication List - Last Reconciled 06/27/24 by Kael Melendrez CNP allopurinol 300 mg PO DAILY allopurinol 200 mg (2 x 100 mg) PO DAILY colchicine Take 1 tab daily for 1 month then remain on 1 tab every other day omeprazole 20 mg PO DAILY prednisone orally ; for gout flares only. take 3 tabs daily for 3 days then 2 tabs for 3 days then 1 tab for 3 days then stop PRN; sumatriptan succinate take 1 tab at onset of headache; if no relief may repeat 1 tab after at least 2 hrs; max = 4 tabs/24 hr PO Tobacco use date assessed: 06/27/24 Dental Screening Dental Screen Date: 06/27/24 Did you have a dental visit in the last 12 months?: Yes Did you have a dental problem in the last 6 months where you did not have access to dental care?: No Was dental information given to patient?: Patient has dentist HPI HPI Comments History of Present Illness Details [facility] Last office visit/CPE: 11 months ago Acute issue(s): Gout -He is on allopurinol 500 mg daily, colchicine 0.6 mg every other day, and prednisone PRN GERD -He was on omeprazole 20mg daily but ran out. He has been experiencing intermittent mid abdominal and epigastric pain and heartburn for the past two week. He also reports bright red blood in his stool for the past 1-2 months. He notes frequent constipation and occasional straining with defecation. His symptoms improves after meals. He notes frequent constipation. No n/v/d He notes that he generally makes healthy dietary changes and sleep well. He has not been exercising No acute symptoms at this time PMHx: GERD, palpitations, gout, hammertoe of left foot SurgHx: Appendectomy FHx: Mom: None SocHx: Nonsmoker. Does not drink alcohol. No recreational drugs He notes he has not had an eye exam a long time Last tetanus vaccine was in 2016 He if followed by [facility] Rheumatology for gout [facility] Medical History Encounter to establish care Surgical History Hx of appendectomy Family History (Updated 06/27/24 @ 11:34 by Ailyn Schaefer) Mother No problems noted. Father No problems noted. 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 1. Little interest or pleasure in doing things: not at all 2. Feeling down, depressed, or hopeless: not at all 3. Trouble falling or staying asleep, or sleeping too much: not at all 4. Feeling tired or having little energy: several days 5. Poor appetite or overeating: not at all 6. Feeling bad about yourself - or that you are a failure or have let yourself or your family down: not at all 7. Trouble concentrating on things, such as reading the newspaper or watching television: not at all 8. Moving or speaking so slowly that other people could have noticed. Or the opposite - being so fidgety or restless that you have been moving around a lot more than usual: not at all 9. Thoughts that you would be better off or of hurting yourself in some way: not at all Total score: 1 Depression Screening Interpretation: Negative Depression Screening Done: Yes 23553 - PHQ-9 Billing: Yes Source: Developed by Drs. Carlos Schroeder, Sarah Abbott, Lew Rivas and colleagues, with an educational donald from [employer]. Thrive Questionnaire Date Thrive assessed: 06/27/24 I am a: Patient What is your living situation today?: I have a steady place to live Within the past 12 months, did the food you bought not last and you didn't have the money to get more?: Never true Within the past 12 months, did you worry whether your food would run out before you got money to buy more?: Never true Do you have trouble paying for medicines?: No Do you have trouble getting transportation to medical appointments?: No Do you have trouble paying your heating and electricity bill?: No Do you have trouble taking care of your child, family member or friend?: No Do you have trouble with day-to-day activities such as bathing, preparing meals, shopping, managing finances, etc.?: No Are you currently unemployed and looking for a job?: Yes Are you interested in more education?: No THRIVE Score: 0 AUDIT C Alcohol Use Questionnaire (AUDIT-C) 1. How often do you have a drink containing alcohol?: Never Total Score: 0 Score Reviewed/Action Taken: Yes DIONICIO-7 AMB Questionnaire DIONICIO-7 Date DIONICIO - 7 assessed: 06/27/24 Feeling nervous, anxious, or on edge: 0 = Not at all Not being able to stop or control worryin = Not at all Worrying too much about different things: 0 = Not at all Trouble relaxin = Not at all Being so restless that it is hard to sit still: 0 = Not at all Becoming easily annoyed or irritable: 0 = Not at all Feeling afraid as if something awful might happen: 0 = Not at all Total DIONICIO-7 score (0-4 normal; 5-9 mild; 10-14 moderate; 15-21 severe): 0 Source: Developed by Drs. Carlos Schroeder, Lew José and colleagues, with an educational donald from [employer]. DIONICIO-7 Assessment Billing DIONICIO-7 Assessment Tool: DIONICIO-7 Assessment 05792 Review of Systems Const Details: Denies chills, Denies fatigue, Denies fever(s), Denies headache(s) and Denies weakness HEENT Denies change in vision, Denies dizziness, Denies headache(s), Denies hearing loss, Denies nasal congestion, Denies sinus pain, Denies sinus pressure and Denies sore throat Card Denies chest pain, Denies lightheadedness, Denies dyspnea and Denies other (palpitations) Resp Denies cough, Denies dyspnea and Denies wheezing GI Denies abdominal pain, Denies melena, Denies hematochezia, Denies change in bowel habits, Denies dyspepsia and Denies nausea Denies hematuria and Denies dysuria Musc Denies abnormal gait, Denies myalgias, Denies arthralgias, Denies numbness and Denies tingling Skin/Breast Denies rash, Denies unusual bruising and Denies wounds Neuro Denies abnormal gait, Denies dizziness, Denies headache(s), Denies memory loss, Denies numbness, Denies Sensory deficit (Neuro), Denies tingling and Denies weakness Psych Denies anxiety, Denies depression and Denies memory loss Endo Denies cold intolerance, Denies fatigue, Denies heat intolerance, Denies polydipsia and Denies polyuria Jayson/Lymph Denies easy bleeding and Denies easy bruising Aller/Immun Denies wheezing Physical exam (Primary Care) Vital Signs: Last Vital Signs Temp 97.9 F 06/27/24 11:38 Pulse 86 06/27/24 11:38 Resp 16 06/27/24 11:38 BP 110/74 06/27/24 11:38 Pulse Ox 97 06/27/24 11:38 Oxygen Delivery Method Room Air 06/27/24 11:38 BMI result Body Mass Index 31.0 Tobacco/Smoking Status: Tobacco use Status Tobacco use date assessed 06/27/24 06/27/24 11:33 Patient Tobacco Use Status Never used Tobacco 06/27/24 11:33 e-Cigarette/Vaping Use Never Used 06/27/24 11:33 PHQ-9: PHQ-9 Score PHQ-9: Total score 1 06/27/24 11:50 Depression Screening Interpretation: Negative Thrive Assessment: Date of Thrive Assessment Date Thrive assessed 06/27/24 06/27/24 11:42 Const Other: General: no acute distress, well developed, alert and awake Nutritional Appearance: well nourished Orientation/consciousness: patient oriented x3 [facility] Head: Yes normocephalic and Yes atraumatic Ears: hearing grossly normal bilaterally and TM's normal bilaterally General nose exam: Normal external nose present and Normal nares present Mouth: Normal oral and palatal mucosa present and moist mucous membranes Teeth and gingiva: dentition normal Throat: Yes oropharynx normal Eyes Pupils: Equal, round and reactive pupils present and Pupil accommodation reflex normal EOM: EOMs intact bilaterally Neck Neck: Yes normal visual inspection, Yes no lymphadenopathy and Yes trachea midline Thyroid: Thyroid normal Carotids: no bruits Lymphatic: no lymphadenopathy noted Chest Chest palpation & inspection: normal inspection of the chest Resp Effort & Inspection: normal respiratory effort Auscultation: clear to auscultation bilaterally Cardio Rate: regular rate Rhythm: regular rhythm Heart sounds: S1 normal heart sound present, S2 normal heart sound present, no gallops, no murmurs and no rubs Bruits: no abdominal aortic bruits and no carotid bruits GI Palpation (GI): No Abdominal aortic bruit present, Soft to palpation, nontender, No hepatosplenomegaly present and No Rebound tenderness present Auscultation: Hypoactive bowel sounds General: Yes no CVA tenderness Back/Spine/Pelvis Back: no CVA tenderness Cervical Spine: cervical ROM normal and No Cervical spine tenderness Thoracic/Lumbar Spine: thoraco-lumbar ROM normal, No pain with thoraco-lumbar ROM, No thoracic spinal tenderness and No lumbar spinal tenderness Skin General: warm and dry. Normal skin color. Normal skin turgor Lesions: no lesions Rashes: no rashes Trauma: no lacerations or abrasions Wounds: no wounds Nails: normal Neuro General: patient oriented x3, gait normal and CN's II-XI intact bilaterally Cranial nerves: Yes Equal, round and reactive pupils present Cognition (Neuro): normal cognition Gait exam (Neuro): Normal gait present Motor exam (neuro): 5/5 motor strength present throughout Sensory Exam: No Sensory deficit (Neuro) Deep tendon reflexes (DTR's): Right patellar reflex intensity grade: 2+ and Left patellar reflex intensity grade: 2+ Extrem General: Yes normal to inspection, No edema and No calf tenderness Psych Appearance: grossly normal Affect: normal affect Attitude: cooperative Thought process: Normal thought process present Assessment and Plan Assessment & Plan (1) Normal physical examination, routine: Code(s): Z00.00 - Encounter for general adult medical examination without abnormal findings Plan: No significant physical restrictions or limitations noted Healthy diet and routine exercise encouraged Advised to get lab work done and follow-up in 3-4 weeks for labs review and GI issues Return sooner with worsening or new symptoms Verbalized understanding and agreed with treatment plan (2) Abdominal pain: Code(s): R10.9 - Unspecified abdominal pain Plan: He has been experiencing intermittent mid abdominal and epigastric pain and heartburn for the past two week. He also reports bright red blood in his stool for the past 1-2 months. He notes frequent constipation and occasional straining with defecation. His symptoms improves after meals. He notes frequent constipation. No n/v/d. Abdomen is soft, nontender, nondistended, hyperactive viral sounds x4 No acute symptoms at this time Gastritis, duodenal ulcer, GERD, and , fecal impaction is likely Omeprazole 20 mg daily ordered. Advised to take as prescribed. Instructed on the risks, benefits, and potential adverse reactions of the medication Healthy diet instructed and encouraged. Advised to avoid fatty or greasy foods and foods triggers Referred to [facility] gastroenterology Follow-up with worsening or new symptoms Verbalized understanding and agreed with treatment plan (3) GERD (gastroesophageal reflux disease): Code(s): K21.9 - Gastro-esophageal reflux disease without esophagitis Plan: Plan as above (4) Hematochezia: Code(s): K92.1 - Melena Plan: Plan as above (5) Eye exam, routine: Code(s): Z01.00 - Encounter for examination of eyes and vision without abnormal findings Plan: He notes he has not had an eye exam a long time Referred to Ophthalmology for routine eye care (6) Laboratory tests ordered as part of a complete physical exam (CPE): Code(s): Z00.00 - Encounter for general adult medical examination without abnormal findings Plan: Fasting labs ordered as part of a complete physical exam. Advised to fast for at least 10 hours before getting labs drawn. May drink water Verbalized understanding and agreed with treatment plan. Orders: Orders Lipid Panel Today Z00.00 - Encounter for general adult medical examination without abnormal findings TSH reflex Free T4 Today Z00.00 - Encounter for general adult medical examination without abnormal findings UA CC w/rflx Micro + Cult Today Z00.00 - Encounter for general adult medical examination without abnormal findings Referrals Gastroenterology Referral K21.9 - Gastro-esophageal reflux disease without esophagitis, K92.1 - Melena, R10.9 - Unspecified abdominal pain Ophthalmology Referral Z01.00 - Encounter for examination of eyes and vision without abnormal findings Medications: Refilled omeprazole 20 mg PO DAILY 30 caps 3RF K21.9 - Gastro-esophageal reflux disease without esophagitis Discontinued sumatriptan succinate Discontinued Reason: Patient no longer taking take 1 tab at onset of headache; if no relief may repeat 1 tab after at least 2 hrs; max = 4 tabs/24 hr PO 10 tabs 0RF R51.9 - Headache, unspecified Coding Level of Care Code Est Pt Prev Care 18-39y(66921) Diagnoses Normal physical examination, routine Z00.00 Abdominal pain R10.9 GERD (gastroesophageal reflux disease) K21.9 Hematochezia K92.1 Eye exam, routine Z01.00 Laboratory tests ordered as part of a complete physical exam (CPE) Z00.00 Additional Codes DIONICIO-7 Assessment Billing - DIONICIO-7 Assessment Tool: DIONICIO-7 Assessment 71397 ([id number])
[2024-06-27 11:38] VITALS: BP 110/74; PULSE 86; RESP 16; TEMP 36.6; O2SAT 97; BMI 31.0
== END 2024-06-27 12:07 | disposition home or self-care (01) ==
PROVIDERS: PCP Nurse Practitioner Family; Visit Provider Nurse Practitioner Family
DX: Z00.00 Encounter for general adult medical examination without abnormal findings (principal); R10.9 Unspecified abdominal pain; K21.9 Gastro-esophageal reflux disease without esophagitis; K92.1 Melena
CPT/HCPCS: 99395

== ENCOUNTER 2024-07-21 12:25 | Outpatient (AMB) | payer BC, SELFPAY ==
--- NOTE | 2024-07-21 12:27 | A.OFFPC_ITS ---
Vital Signs 07/21/24 12:33 Height 5 ft 11 in Weight 220 lb 2 oz BMI 30.7 BP 130/80 Blood Pressure Location Rt brachial Position Sitting Respiration 16 Pulse 87 Pulse Source Pulse Oximeter Temp 98.2 F Temp Source Oral Pulse Oximetry (%) 96 Oxygen Delivery Method Room Air Intake Visit Reasons: 3-4 wks GI issues, labs review Intake Note: patient here for 3-4 wks follow up for GI issues. he did not do labs. Circuit Court Clerk Required: No Allergies ciprofloxacin [Cipro] Allergy (Unknown, Verified 07/21/24 12:30) rash sulindac [SULINDAC] Allergy (Unknown, Verified 07/21/24 12:30) ITCHING, Rash/swelling on face indomethacin Adverse Reaction (Unknown, Verified 07/21/24 12:30) stomach upset Tobacco use date assessed: 07/21/24 Dental Screening Dental Screen Date: 07/21/24 Did you have a dental visit in the last 12 months?: Yes Did you have a dental problem in the last 6 months where you did not have access to dental care?: No Was dental information given to patient?: Patient has dentist HPI HPI Comments History of Present Illness Details 34-year-old male presents for abdominal pain and lab reviews follow-up He notes that his heartburn has resolved since he started taking omeprazole. However, he has been experiencing constant pain to her suprapubic region which improves, briefly, after eating. No nausea, vomiting, or diarrhea. No acute symptoms at this time. He has an appointment with [facility] gastro[place]ology this week He forgot to get lab work done as planned before this visit [facility] Medical History Encounter to establish care Surgical History Hx of appendectomy Family History (Updated 06/27/24 @ 11:34 by Ailyn Schaefer MA) Mother No problems noted. Father No problems noted. 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 Carlos Schroeder, Sarah Abbott, Lew Rivas and colleagues, with an educational donald from [employer]. Review of Systems Const Details: Const Denies chills, Denies fatigue, Denies fever(s), Denies headache(s) and Denies weakness ENT Denies dizziness and Denies headache(s) Card Denies chest pain, Denies lightheadedness, Denies dyspnea and Denies other (Palpitations) Resp Denies cough, Denies dyspnea, Denies wheezing and Denies other ( shortness of breath) GI Denies abdominal pain, Denies melena, Denies hematochezia, Denies change in bowel habits, Denies dyspepsia and Denies nausea Denies hematuria and Denies dysuria Musc Denies abnormal gait, Denies myalgias, Denies arthralgias, Denies numbness and Denies tingling Skin/Breast Denies rash, Denies unusual bruising and Denies wounds Neuro Denies abnormal gait, Denies dizziness, Denies headache(s), Denies memory loss, Denies numbness, Denies Sensory deficit (Neuro), Denies tingling and Denies weakness Psych Denies anxiety, Denies depression, Denies memory loss Endo Denies cold intolerance, Denies fatigue, Denies heat intolerance, Denies polydipsia and Denies polyuria Aller/Immun Denies wheezing Physical exam (Primary Care) Vital Signs: Last Vital Signs Temp 98.2 F 07/21/24 12:33 Pulse 87 07/21/24 12:33 Resp 16 07/21/24 12:33 BP 130/80 07/21/24 12:33 Pulse Ox 96 07/21/24 12:33 Oxygen Delivery Method Room Air 07/21/24 12:33 BMI result Body Mass Index 30.7 Tobacco/Smoking Status: Tobacco use Status Tobacco use date assessed 07/21/24 07/21/24 12:35 Patient Tobacco Use Status Never used Tobacco 07/21/24 12:29 e-Cigarette/Vaping Use Never Used 07/21/24 12:29 Thrive Assessment: Date of Thrive Assessment Date Thrive assessed 06/27/24 07/21/24 12:29 Const Other: General: no acute distress and well developed Nutritional Appearance: well nourished Orientation/consciousness: patient oriented x3 [facility] Head: Yes normocephalic and Yes atraumatic Eyes General: appearance normal, both eyes and all related structures Pupils: Equal, round and reactive pupils present EOM: EOMs intact bilaterally Resp Effort & Inspection: normal respiratory effort Auscultation: clear to auscultation bilaterally Cardio Rate: regular rate Rhythm: regular rhythm Heart sounds: S1 normal heart sound present, S2 normal heart sound present, no gallops, no murmurs and no rubs GI Palpation (GI): No Abdominal aortic bruit present, Soft to palpation, nontender, No hepatosplenomegaly present and No Rebound tenderness present Auscultation: normal bowel sounds General: Yes no CVA tenderness Back/Spine/Pelvis Back: no CVA tenderness Extrem General: Yes normal to inspection, No edema and No calf tenderness Skin General: warm and dry. Normal skin color. Normal skin turgor Neuro General: patient oriented x3, gait normal and no focal neuro deficit Cranial nerves: Yes Equal, round and reactive pupils present Cognition (Neuro): normal cognition Gait exam (Neuro): Normal gait present Sensory Exam: No Sensory deficit (Neuro) Psych Appearance: grossly normal Affect: normal affect Attitude: cooperative Thought process: Normal thought process present Coding Level of Care Code Est Pt Level 3 (05789) Diagnoses Abdominal pain R10.9 GERD (gastroesophageal reflux disease) K21.9 Assessment & Plan Assessment & Plan (1) Abdominal pain: Code(s): R10.9 - Unspecified abdominal pain Category: Medical Plan: Reports constant pain to her suprapubic region which improves, briefly, after eating. Heartburn has resolved No acute symptoms Abdomen is soft, nontender nondistended, active bowel sounds x4 Gastric ulcer is possible Continue to take omeprazole as prescribed Advised to avoid fried or greasy foods Follow-up with Gastroenterology as planned Encouraged to get lab work done and follow-up in 2-3 weeks for labs review Verbalized understanding and agreed with the plan (2) GERD (gastroesophageal reflux disease): Code(s): K21.9 - Gastro-esophageal reflux disease without esophagitis Category: Medical Plan: Controlled
[2024-07-21 12:33] VITALS: BP 130/80; PULSE 87; RESP 16; TEMP 36.8; O2SAT 96; BMI 30.7
== END 2024-07-21 13:13 | disposition home or self-care (01) ==
PROVIDERS: PCP Nurse Practitioner Family; Visit Provider Nurse Practitioner Family
DX: R10.9 Unspecified abdominal pain (principal); K21.9 Gastro-esophageal reflux disease without esophagitis

== ENCOUNTER → 2024-07-21 12:25 | Outpatient (BNVA) | payer BC, SELFPAY | PROVIDERS: PCP Nurse Practitioner Family; Visit Provider Nurse Practitioner Family ==

== ENCOUNTER 2024-07-22 10:41 | Outpatient (REF) | payer BC, SELFPAY ==
[2024-07-22 14:08] LABS: Appearance Urine Clear; Color Urine Yellow; Glucose Urine UA Negative (Negative); Leukocyte Esterase Urine Negative (Negative); Nitrite Urine Negative (Negative); Specific Gravity - Urine 1.015 (1.005-1.025); Urine Blood Negative (Negative); Urine Ketones Negative (Negative); Urine Protein Negative (Neg-Trace)
[2024-07-22 14:08] LABS: MANUAL DIFF FLAG NO
[2024-07-22 14:16] LABS: Basophils Absolute Auto 0.1 X10*3/uL (0.0-0.2); Eosinophils Absolute Auto 0.1 X10*3/uL (0.0-0.4); Eosinophils Percent Auto 2.2 % (0-4); Hematocrit 47.7 % (42.0-52.0); Imm Gran Abs Auto 0.03 X10*3/uL (0.00-0.03); Imm Gran Pct Auto 0.5 % (0.0-0.4); Lymphocytes Absolute Auto 2.5 X10*3/uL (1.2-4.9); Lymphocytes Percent Auto 39.8 % (20-40); Mean Corpuscular HGB Conc 33.5 g/dl (31.0-36.0); Mean Corpuscular Volume 89.3 fL (80.0-98.0); Mean Platelet Volume 9.9 fL (9.4-12.4); Monocytes Absolute Auto 0.5 X10*3/uL (0.1-1.2); Monocytes Percent Auto 8.2 % (2-11); Neutrophils Percent Auto 48.3 % (45-73); Platelet Count 336 X10*3/uL (160-400); Red Blood Count 5.34 X10*6/uL (4.60-5.80); Red Cell Distribution Width 12.5 % (11.0-16.0); White Blood Count 6.3 X10*3/uL (4.8-10.8)
[2024-07-22 14:37] LABS: Alanine Aminotransferase 25 U/L (0-40); Albumin Level 4.6 g/dL (3.5-5.0); Alkaline Phosphatase 54 U/L (39-117); Anion Gap 11 (12-20); Aspartate Amino Transferase 19 U/L (5-37); Bilirubin Total 0.5 mg/dL (0.0-1.0); Blood Urea Nitrogen 18 mg/dL (9-16); C Reactive Protein 0.46 mg/dL (< or = 0.50); Calcium 9.9 mg/dL (8.4-10.2); Carbon Dioxide 26 mmol/L (22-29); Chloride 108 mmol/L (96-108); Cholesterol 195 mg/dL (<200); Estimated Glomerular Filt Rate 60; Glucose Random 88 mg/dL (60-115); HDL Cholesterol 56 mg/dL (>40); LDL Cholesterol Calculated 115 mg/dL (<100); Potassium 3.9 mmol/L (3.3-5.1); Sodium 141 mmol/L (135-145); Total Protein 8.1 g/dL (6.5-8.0); Triglycerides 121 mg/dL (<150)
[2024-07-22 14:56] LABS: Erythrocyte Sedimentation Rate 7 MM/HR (0-15)
[2024-07-22 14:57] LABS: TSH reflex Free T4 1.01 uIU/mL (0.32-4.0)
[2024-07-22 15:54] LABS: Uric Acid 13.1 mg/dL (3.4-7.0)
== END 2024-07-22 10:42 | disposition home or self-care (01) ==
LOC: HO.WFDLDS 10:41
PROVIDERS: Referring Provider Student in an Organized Health Care Education/Training Program; Visit Provider Nurse Practitioner Family
DX: Z00.00 Encounter for general adult medical examination without abnormal findings (principal); M10.9 Gout, unspecified
CPT/HCPCS: 36415; 80053; 80061; 81003; 84443; 84550; 85025; 85652; 86140

== ENCOUNTER 2024-07-22 15:22 | Outpatient (REF) | payer BC, SELFPAY | END 2024-07-22 15:23 | disposition home or self-care (01) | LOC: HO.LAB 15:22 | PROVIDERS: Visit Provider Student in an Organized Health Care Education/Training Program | DX: Z13.89 Encounter for screening for other disorder (principal) ==

== ENCOUNTER 2024-07-25 14:01 | Outpatient (REF) | payer BC, SELFPAY ==
[2024-07-25 15:58] LABS: Lipase 29 U/L (8-78)
[2024-07-25 16:35] LABS: Folate 11.9 ng/mL (> or = 4.0); Vitamin B12 596 pg/mL (200-900)
[2024-07-25 19:11] LABS: Uric Acid 11.3 mg/dL (3.4-7.0)
[2024-07-26 13:47] LABS: H Pylori Breath Test Negative (Negative)
[2024-07-28 20:34] LABS: Transglutaminase Ab IgG <1.0 U/mL; Transglutaminase IgA 1.8 U/mL
[2024-07-29 14:03] LABS: Vitamin D 25-OH, D2 <4 ng/mL; Vitamin D 25-OH, D3 25 ng/mL; Vitamin D 25-OH, Total 25 ng/mL (30-100)
== END 2024-07-25 14:02 | disposition home or self-care (01) ==
LOC: HO.LAB 14:01
PROVIDERS: Student in an Organized Health Care Education/Training Program; PCP Nurse Practitioner Family; Visit Provider Nurse Practitioner Family
DX: R10.9 Unspecified abdominal pain (principal); K21.9 Gastro-esophageal reflux disease without esophagitis; M1A.0711 Idiopathic chronic gout, right ankle and foot, with tophus (tophi); R19.7 Diarrhea, unspecified; E55.9 Vitamin D deficiency, unspecified
CPT/HCPCS: 36415; 82306; 82607; 82746; 83013; 83690; 84550; 86364

== ENCOUNTER 2024-07-25 14:01 | Outpatient (AMB) | payer BC, SELFPAY ==
--- NOTE | 2024-07-25 14:12 | MHC.OFFVIS ---
Vital Signs 07/25/24 14:16 Height 5 ft 11 in Weight 215 lb BMI 30.0 BP 120/56 L Blood Pressure Location Lt brachial Position Sitting Pulse 86 Intake Visit Reasons: Gastroesophageal reflux disease (GERD) Intake Note: Patient new consult for GERD Patient cc: acid reflex, abdominal pain,and constipation with some blood. Property Administrator Required: No Accompanied by: Family/Other Allergies ciprofloxacin [Cipro] Allergy (Unknown, Verified 07/25/24 14:11) rash sulindac [SULINDAC] Allergy (Unknown, Verified 07/25/24 14:11) ITCHING, Rash/swelling on face indomethacin Adverse Reaction (Unknown, Verified 07/25/24 14:11) stomach upset HPI HPI Gastroesophageal reflux disease (GERD): Details: 34-year-old male with past medical history of gout, hematochezia, GERD, obesity, is here today for initial consultation. Patient reports that for the past few years he has been having severe acid reflux. Patient also reports that he gained few lb. Postprandial epigastric pain and reflux. Patient does admit that he frequently eats late at night. Patient usually eats Swedish food that includes rice and beans, chicken or pork. Patient does admit that he would eat fast food occasionally. Patient admits that he used to drink alcohol, however he stopped several months ago. Patient reports occasional nausea without vomiting. Reports occasional dyspepsia and dysphagia without odynophagia. Patient reports that he has frequent abdominal bloating and does not empty his bowels. Patient admits to be constipated no BM sometimes for 2-3 days even though he will have occasional postprandial loose stools. Patient admits that he will have occasional blood in his stools after bowel movements when straining. No sanya blood or no melena. Patient denies any family history of CRC. Patient was on omeprazole before, however reports that it was not working for him. [facility] Medical History Encounter to establish care Surgical History Hx of appendectomy Family History Mother No problems noted. Father No problems noted. 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 Cognitive needs: No Hearing needs: No Vision needs: No Review of Systems Const Denies weight gain and Denies weight loss ENT Reports no additional complaints, Denies dysphagia and Denies odynophagia Card Reports no additional complaints Resp Reports no additional complaints GI Reports abdominal pain, Denies belching, Denies melena, Reports bloating, Denies change in bowel habits, Reports constipation, Denies dysphagia, Denies excessive flatus, Denies dyspepsia, Reports heartburn, Denies diarrhea, Reports loose stools (Occasional postprandially), Denies nausea, Denies odynophagia and Denies vomiting Reports no additional complaints Musc Reports no additional complaints Neuro Reports no additional complaints Psych Reports no additional complaints Endo Reports no additional complaints Physical Exam Vital Signs: Last Vital Signs Pulse 86 07/25/24 14:16 BP 120/56 L 07/25/24 14:16 BMI result Body Mass Index 30.0 Const General: healthy appearing and no acute distress Nutritional Appearance: well nourished and obese Orientation/consciousness: patient oriented x3 Resp Effort & Inspection: normal respiratory effort, able to speak in complete sentences, no tracheal deviation and symmetric chest movement Auscultation: clear to auscultation bilaterally Cardio Rate: regular rate GI Inspection: Yes normal to inspection, No distended and Yes obesity Palpation (GI): Soft to palpation, not firm, nontender and No hepatosplenomegaly present Auscultation: normal bowel sounds General: Yes no CVA tenderness Back/Spine/Pelvis Back: no CVA tenderness Skin General skin exam: elasticity normal, turgor normal and dry skin Neuro General: patient oriented x3 Psych Appearance: grossly normal Mental Status: mental status grossly normal Assessment & Plan Assessment & Plan (1) GERD (gastroesophageal reflux disease): Code(s): K21.9 - Gastro-esophageal reflux disease without esophagitis Category: Medical Qualifiers: Esophagitis presence: esophagitis presence not specified Qualified Code(s): K21.9 - Gastro-esophageal reflux disease without esophagitis (2) Postprandial epigastric pain: Code(s): R10.13 - Epigastric pain (3) Postprandial abdominal bloating: Code(s): R14.0 - Abdominal distension (gaseous) (4) Dysphagia: Code(s): R13.10 - Dysphagia, unspecified Qualifiers: Dysphagia type: unspecified Qualified Code(s): R13.10 - Dysphagia, unspecified (5) Constipation: Code(s): K59.00 - Constipation, unspecified Qualifiers: Constipation type: slow transit constipation Qualified Code(s): K59.01 - Slow transit constipation Plan Will rule out celiac, malabsorption, H pylori. Check lipase, will send patient for upper GI with barium swallow to evaluate for reflux, hernia. Patient will be started on lansoprazole in the morning and famotidine at bedtime. Patient will also take senna to help him empty his bowels better. Patient will be scheduled for upper endoscopy to rule out gastritis, esophagitis, gastric or peptic ulcers, Mcdaniels's, H pylori. Message sent to surgical schedulers to book the procedure. He will follow-up with our office after the procedure. Will call patient with lab results and barium swallow results. He is agreeable to this plan and verbalizes understanding of instructions. He was given the opportunity to ask questions and all questions answered. Thank you for allowing me to participate in his care Orders: Orders Transglutaminase Ab IgG Today R10.9 - Unspecified abdominal pain Vitamin B12 and Folate Today R19.7 - Diarrhea, unspecified Lipase Today R10.9 - Unspecified abdominal pain Transglutaminase IgA Today R10.9 - Unspecified abdominal pain Vitamin D 25-OH (D2 and D3) Today E55.9 - Vitamin D deficiency, unspecified H Pylori Breath Test Today K21.9 - Gastro-esophageal reflux disease without esophagitis FL upper GI w Ba Swallow Today R13.10 - Dysphagia, unspecified Medications: New famotidine 40 mg PO BEDTIME 30 tabs 3RF K21.9 - Gastro-esophageal reflux disease without esophagitis sennosides (Natural Senna Laxative) 17.2 mg (2 x 8.6 mg) PO BEDTIME 60 tabs 3RF constipation K59.00 - Constipation, unspecified lansoprazole 30 mg PO DAILY 30 caps 3RF Discontinued omeprazole Discontinued Reason: Doctor's Order 20 mg PO DAILY 30 caps 3RF K21.9 - Gastro-esophageal reflux disease without esophagitis Coding Level of Care Code New Pt Level 4 (95783) Diagnoses Gastroesophageal reflux disease, unspecified whether esophagitis present K21.9 Esophagitis presence: esophagitis presence not specified Postprandial epigastric pain R10.13 Postprandial abdominal bloating R14.0 Dysphagia, unspecified type R13.10 Dysphagia type: unspecified Slow transit constipation K59.01 Constipation type: slow transit constipation Time Spent (min) 45 Comment 30 minutes spent with patient and additional 15 minutes spent reviewing his records
[2024-07-25 14:16] VITALS: BP 120/56; PULSE 86
== END 2024-07-25 14:53 | disposition home or self-care (01) ==
PROVIDERS: PCP Nurse Practitioner Family; Visit Provider Nurse Practitioner Family
DX: K21.9 Gastro-esophageal reflux disease without esophagitis (principal); R10.13 Epigastric pain; R14.0 Abdominal distension (gaseous); R13.10 Dysphagia, unspecified; K59.01 Slow transit constipation
CPT/HCPCS: 99204

== ENCOUNTER 2024-08-05 13:35 | Outpatient (AMB) | payer BC, SELFPAY ==
--- NOTE | 2024-08-05 13:43 | MHC.PC.OV ---
Vital Signs 08/05/24 13:48 Height 5 ft 11 in Weight 215 lb 8 oz BMI 30.1 BP 108/68 Blood Pressure Location Lt brachial Position Sitting Respiration 16 Pulse 67 Pulse Source Pulse Oximeter Temp 97.9 F Temp Source Oral Pulse Oximetry (%) 96 Oxygen Delivery Method Room Air Intake Visit Reasons: Telehealth 2-3 weeks labs and swollen knee Intake Note: patient here for follow up on labs and swollen knee. Shoe Caser Required: No Allergies ciprofloxacin [Cipro] Allergy (Unknown, Verified 08/05/24 14:00) rash sulindac [SULINDAC] Allergy (Unknown, Verified 08/05/24 14:00) ITCHING, Rash/swelling on face indomethacin Adverse Reaction (Unknown, Verified 08/05/24 14:00) stomach upset Medication List - Last Reconciled 08/05/24 by Kael Melendrez CNP allopurinol 300 mg PO DAILY allopurinol 200 mg (2 x 100 mg) PO DAILY colchicine Take 1 tab daily for 1 month then remain on 1 tab every other day famotidine 40 mg PO BEDTIME lansoprazole 30 mg PO DAILY prednisone orally; Take 3 tabs daily for 3 days, 2 tabs daily for 3 days and 1 tab daily for 3 days Keep additional tabs to use as needed sennosides (Natural Senna Laxative) 17.2 mg (2 x 8.6 mg) PO BEDTIME Tobacco use date assessed: 08/05/24 Dental Screening Dental Screen Date: 08/05/24 Did you have a dental visit in the last 12 months?: Yes Did you have a dental problem in the last 6 months where you did not have access to dental care?: No Was dental information given to patient?: Patient has dentist HPI HPI Comments History of Present Illness Details 34-year-old male presents review of recent lab results and complaints of right knee pain and swelling. He notes that his s/s started 10 days ago and has improved since he started taking prednisone which was prescribed for gout by his arch support technician. His symptoms started 2 weeks after doing leg presses at the gym. He notes that the weights were not too heavy. He denies fall, injury, or trauma. [facility] Medical History Encounter to establish care Surgical History Hx of appendectomy Family History Mother No problems noted. Father No problems noted. 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 1. Little interest or pleasure in doing things: not at all 2. Feeling down, depressed, or hopeless: not at all 3. Trouble falling or staying asleep, or sleeping too much: not at all 4. Feeling tired or having little energy: not at all 5. Poor appetite or overeating: not at all 6. Feeling bad about yourself - or that you are a failure or have let yourself or your family down: not at all 7. Trouble concentrating on things, such as reading the newspaper or watching television: not at all 8. Moving or speaking so slowly that other people could have noticed. Or the opposite - being so fidgety or restless that you have been moving around a lot more than usual: not at all 9. Thoughts that you would be better off or of hurting yourself in some way: not at all Total score: 0 Source: Developed by Drs. Carlos Schroeder, Sarah Abbott, Lew Rivas and colleagues, with an educational donald from [employer]. Thrive Questionnaire Date Thrive assessed: 06/27/24 I am a: Patient What is your living situation today?: I have a steady place to live Within the past 12 months, did the food you bought not last and you didn't have the money to get more?: Never true Within the past 12 months, did you worry whether your food would run out before you got money to buy more?: Never true Do you have trouble paying for medicines?: No Do you have trouble getting transportation to medical appointments?: No Do you have trouble paying your heating and electricity bill?: No Do you have trouble taking care of your child, family member or friend?: No Do you have trouble with day-to-day activities such as bathing, preparing meals, shopping, managing finances, etc.?: No Are you currently unemployed and looking for a job?: No Are you interested in more education?: No Please select the resources that you would like help with: None Currently or been in a relationship where the following occur: No concerns reported THRIVE Score: 0 AUDIT C Alcohol Use Questionnaire (AUDIT-C) 1. How often do you have a drink containing alcohol?: Never Total Score: 0 DIONICIO-7 AMB Questionnaire DIONICIO-7 Date DIONICIO - 7 assessed: 06/27/24 Feeling nervous, anxious, or on edge: 0 = Not at all Not being able to stop or control worryin = Not at all Worrying too much about different things: 0 = Not at all Trouble relaxin = Not at all Being so restless that it is hard to sit still: 0 = Not at all Becoming easily annoyed or irritable: 0 = Not at all Feeling afraid as if something awful might happen: 0 = Not at all Total DIONICIO-7 score (0-4 normal; 5-9 mild; 10-14 moderate; 15-21 severe): 0 Source: Developed by Drs. Carlos Schroeder, Sarah Abbott, Lew Rivas and colleagues, with an educational donald from [employer]. Review of Systems Const Details: Const Denies chills, Denies fatigue, Denies fever(s), Denies headache(s) and Denies weakness ENT Denies dizziness and Denies headache(s) Card Denies chest pain, Denies lightheadedness, Denies dyspnea and Denies other (Palpitations) Resp Denies cough, Denies dyspnea, Denies wheezing and Denies other ( shortness of breath) GI Denies abdominal pain, Denies melena, Denies hematochezia, Denies change in bowel habits, Denies dyspepsia and Denies nausea Denies hematuria and Denies dysuria Musc Reports as per HPI Skin/Breast Denies rash, Denies unusual bruising and Denies wounds Neuro Denies abnormal gait, Denies dizziness, Denies headache(s), Denies memory loss, Denies numbness, Denies Sensory deficit (Neuro), Denies tingling and Denies weakness Psych Denies anxiety, Denies depression, Denies memory loss Endo Denies cold intolerance, Denies fatigue, Denies heat intolerance, Denies polydipsia and Denies polyuria Aller/Immun Denies wheezing Physical exam (Primary Care) Vital Signs: Last Vital Signs Temp 97.9 F 08/05/24 13:48 Pulse 67 08/05/24 13:48 Resp 16 08/05/24 13:48 BP 108/68 08/05/24 13:48 Pulse Ox 96 08/05/24 13:48 Oxygen Delivery Method Room Air 08/05/24 13:48 BMI result Body Mass Index 30.1 Tobacco/Smoking Status: Tobacco use Status Tobacco use date assessed 08/05/24 08/05/24 13:50 Patient Tobacco Use Status Never used Tobacco 08/05/24 13:46 e-Cigarette/Vaping Use Never Used 08/05/24 13:46 PHQ-9: PHQ-9 Score PHQ-9: Total score 0 08/05/24 14:00 Thrive Assessment: Date of Thrive Assessment Date Thrive assessed 06/27/24 08/05/24 13:46 Currently or been in a relationship where the following occur: No concerns reported Const Other: General: no acute distress and well developed Nutritional Appearance: well nourished Orientation/consciousness: patient oriented x3 HENMT Head: Yes normocephalic and Yes atraumatic Eyes General: appearance normal, both eyes and all related structures Pupils: Equal, round and reactive pupils present EOM: EOMs intact bilaterally Resp Effort & Inspection: normal respiratory effort Auscultation: clear to auscultation bilaterally Cardio Rate: regular rate Rhythm: regular rhythm Heart sounds: S1 normal heart sound present, S2 normal heart sound present, no gallops, no murmurs and no rubs GI Palpation (GI): No Abdominal aortic bruit present, Soft to palpation, nontender, No hepatosplenomegaly present and No Rebound tenderness present Auscultation: normal bowel sounds General: Yes no CVA tenderness Back/Spine/Pelvis Back: no CVA tenderness Extrem General: Yes normal to inspection, No edema and No calf tenderness Right knee: Significant edema above, laterally, and medially to the right knee joint, pain with flexion, skin is intact, no erythema; swollen areas are tender with palpation Skin General: warm and dry. Normal skin color. Normal skin turgor Neuro General: patient oriented x3, gait normal and no focal neuro deficit Cranial nerves: Yes Equal, round and reactive pupils present Cognition (Neuro): normal cognition Gait exam (Neuro): Normal gait present Sensory Exam: No Sensory deficit (Neuro) Psych Appearance: grossly normal Affect: normal affect Attitude: cooperative Thought process: Normal thought process present Coding Level of Care Code Est Pt Level 3 (93435) Diagnoses Pain and swelling of right knee M25.561; M25.461 Vitamin D deficiency E55.9 Assessment & Plan Assessment & Plan (1) Pain and swelling of right knee: Code(s): M25.561 - Pain in right knee; M25.461 - Effusion, right knee Category: Medical Plan: Right knee pain and swelling x 10 days. Signs and symptoms started 2 weeks after doing leg presses at the gym Significant edema above, laterally, and medially to the right knee joint, pain with flexion, skin is intact, no erythema; swollen areas are tender with palpation Likely tendon injury although ligament injury is possible Cool compresses encouraged May take ibuprofen 600 mg with food every 8 hours as needed Elevate the extremity to reduce swelling Advised to avoid exercise or lifting wait until healed Encouraged to schedule his next physical exam for next year. Return with worsening or new symptoms Verbalized understanding and agreed with the treatment plan (2) Vitamin D deficiency: Code(s): E55.9 - Vitamin D deficiency, unspecified Category: Medical Plan: Recent labs reviewed with the patient. Unremarkable findings except for low vitamin-D level, 25 Will order vitamin D3 25 mcg daily. Advised to take as prescribed Follow-up with symptoms or concerns Verbalized understanding and agreed with the plan Medications: New cholecalciferol (vitamin D3) (Vitamin D3) 25 mcg PO DAILY 90 tabs 1RF 90 days
[2024-08-05 13:48] VITALS: BP 108/68; PULSE 67; RESP 16; TEMP 36.6; O2SAT 96; BMI 30.1
== END 2024-08-05 14:17 | disposition home or self-care (01) ==
PROVIDERS: PCP Nurse Practitioner Family; Visit Provider Nurse Practitioner Family
DX: M25.561 Pain in right knee (principal); M25.461 Effusion, right knee; E55.9 Vitamin D deficiency, unspecified

== ENCOUNTER → 2024-08-05 13:35 | Outpatient (BNVA) | payer BC, SELFPAY | PROVIDERS: PCP Nurse Practitioner Family; Visit Provider Nurse Practitioner Family ==

== ENCOUNTER 2024-08-12 10:57 | Day surgery (SDC) | payer BC, SELFPAY ==
--- NOTE | 2024-08-11 12:05 | P.CONAN_ITS ---
Documented by User: Dilma Cardona NP 08/11/24 12:06 HPI - Anesthesia Eval Consult details Narrative: 34yo M for Upper Endoscopy PMFSH Active Problems Active Problems: All Active Problems Vitamin D deficiency (Acute) Pain and swelling of right knee (Acute) Eye exam, routine (Acute) Hematochezia (Acute) Normal physical examination, routine (Acute) Laboratory tests ordered as part of a complete physical exam (CPE) (Acute) Intermittent palpitations (Acute) GERD (gastroesophageal reflux disease) (Acute) Headache (Acute) Adult general medical exam (Acute) Obesity (BMI 30-39.9) (Acute) History of reconstruction of anterior cruciate ligament tear (Acute) Iliotibial band syndrome, left leg (Acute) Metabolic syndrome (Acute) Hammertoe of left foot (Acute) Hyperextension injury of knee (Acute) Screening for hypothyroidism (Acute) Screening for diabetes mellitus (Acute) Chondromalacia patellae, right knee (Acute) Subluxation of right patella (Acute) Internal derangement of right knee (Acute) Right ankle sprain (Acute) Right ankle pain (Acute) Gout (Acute) Past Medical History Medical History GERD (gastroesophageal reflux disease) Gout Encounter to establish care Family History Family History Mother No problems noted. Father No problems noted. Surgical History Surgical History [place] teeth extracted Hx of appendectomy Social History Social History Housing: Apartment Are you a primary critical care technician to a significant other at home: No Do you presently have visiting nurse or other home services: No Alcohol intake: current Alcohol intake frequency: a few times a month Patient Tobacco Use Status: Never used Tobacco e-Cigarette/Vaping Use: Never Used Have you been hit, kicked, punched, or otherwise hurt by someone within the past year? 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 Cognitive needs: No Hearing needs: No Vision needs: No Meds Allergies Allergy/AdvReac Type Severity Reaction Status Date / Time ciprofloxacin [Cipro] Allergy Unknown rash Verified 08/12/24 11:20 sulindac [SULINDAC] Allergy Unknown ITCHING, Verified 08/12/24 11:20 Rash/swelling on face indomethacin AdvReac Unknown stomach Verified 08/12/24 11:20 upset Assessment and Plan Assessment Anesthesia Assessment: Chart Reviewed Documented by User: Anabelle Esqueda MD 08/12/24 12:54 PMFSH Past Medical History Medical History GERD (gastroesophageal reflux disease) Gout Encounter to establish care Family History Family History Mother No problems noted. Father No problems noted. Family history of problems with anesthesia: No Surgical History Surgical History [place] teeth extracted Hx of appendectomy History of Problems with Anesthesia: No Social History Social History Housing: Apartment Are you a primary critical care technician to a significant other at home: No Do you presently have visiting nurse or other home services: No Alcohol intake: current Alcohol intake frequency: a few times a month Patient Tobacco Use Status: Never used Tobacco e-Cigarette/Vaping Use: Never Used Have you been hit, kicked, punched, or otherwise hurt by someone within the past year? 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 Cognitive needs: No Hearing needs: No Vision needs: No Meds Allergies Allergy/AdvReac Type Severity Reaction Status Date / Time ciprofloxacin [Cipro] Allergy Unknown rash Verified 08/12/24 11:20 sulindac [SULINDAC] Allergy Unknown ITCHING, Verified 08/12/24 11:20 Rash/swelling on face indomethacin AdvReac Unknown stomach Verified 08/12/24 11:20 upset Exam Height,Weight and Vital Signs: Height 5 ft 11 in Weight 97.522 kg Vital Signs Temp Pulse Resp BP Pulse Ox O2 Del Method 08/12/24 11:41 98.1 F 88 18 151/85 H 97 Room Air Airway Mallampati Class: II TM Dist: >3cm Neck ROM: Full Loose/Missing/Broken Teeth: No (Veneers intact ) Heart: RRR Lungs: CTAB Other: Penile piercings. Jewelry waiver signed. Assessment and Plan Assessment Anesthesia Assessment: Anesthesia Plan Discussed and Chart Reviewed Final Anesthetic Review Family History of Problems with Anesthesia: No History of Problems with Anesthesia: No NPO: Yes ASA Class: II Final Preanesthetic Review: No Changes in Pt Med Stat, Meds/Allgs Chart Reviewed, Consent Obtained/Reviewed and Anes Risks/Benef Reviewed Patient Risk: Intermediate Procedure Risk: Low Assessment/Block/Sedation in SS: Assess/Block/Sedation-SS Anesthetic Plan Anesthetic Plan: TIVA Disposition: Standard PACU
[2024-08-12] MEDS: Lactated Ringers 1,000 ML 100 ML IVCONT (11:24)
[2024-08-12 11:41] VITALS: BP 151/85; PULSE 88; RESP 18; TEMP 36.7; O2SAT 97
--- NOTE | 2024-08-12 12:02 | MHC.SHP ---
Pre-Procedural Eval Section A - 24 Hr Update-Section A only Date of Service: 08/12/24 The patient is an INPATIENT: No Changes since office visit: Yes Patient answered all questions; No Cold of Flu in the past 2 weeks, No New Medical Problems and No Changes in Medication The patient has been examined within 24 hours of the surgical procedure. The History & Physical has been completed within 30 days and I have reviewed it.: Yes Section B - Complete if H&P > 30 days Chief Complaint: Dysphagia, GERD Allergies: Allergies Allergy/AdvReac Type Severity Reaction Status Date / Time ciprofloxacin [Cipro] Allergy Unknown rash Verified 08/12/24 11:20 sulindac [SULINDAC] Allergy Unknown ITCHING, Verified 08/12/24 11:20 Rash/swelling on face indomethacin AdvReac Unknown stomach Verified 08/12/24 11:20 upset Exam Surgical H&P Exam: Normal: Heart, Normal: Lungs, Normal: Extremities and Normal: Abdomen Plan Diagnosis/Plan: Unchanged I have reviewed the history and physical and performed a pertinent physical examination on my patient. No changes have occurred unless specified. Time Spent With Patient Time: Total time managing care of this patient today ____ minutes.
--- NOTE | 2024-08-12 13:57 | W.PM.OPN ---
Operative Note Operative Note Date of Service: 08/12/24 Narrative: FLEXIBLE TRANSORAL UPPER GASTROINTESTINAL ENDOSCOPY WITH BIOPSIES AND ESOPHAGEAL BALLOON DILATION Pre-op diagnosis: GERD, Epigastric pain, Dysphagia Post-op diagnosis: Esophagitis, gastric ulcer, Gastritis, Endoscopist:? Melia Judd MD Anesthesia:?MAC UPPER ENDOSCOPY Consent: Indications for the procedure and potential complications of bleeding, perforation, reaction to medications and missed diagnosis were discussed with the patient and informed consent was obtained. Instrument: Olympus GIF H 190 mid size upper endoscope Monitoring: Vital signs and clinical assessment, continuous EKG monitoring, Pulse oximetry, Carbon Dioxide monitoring and blood pressure monitoring were done throughout the procedure. Procedure: The patient was placed in the left lateral decubitis position and pre-procedure medications were administered and a bite block was placed. The endoscope was inserted into the mouth and advanced under direct vision to the third part of duodenum. A careful inspection was made as the upper endoscope was withdrawn including a retroflexed examination of the proximal stomach; Findings and interventions are described below. Findings: Larynx: Normal Esophagus: GE junction at 40 cms. Mildly tortuous esophagus without stricture or ring. Focal esophagitis at GE junction. Friable esophageal mucosa with linear erosions and scattered exudate throughout the esophagus. Empiric balloon dilation of distal esophagus was performed with a 20 mm (60 F) CRE balloon x 60 seconds Stomach: Moderate diffuse gastric erythema - biopsies were obtained from the antrum. Edematous folds in the pre-pyloric area with a 6-7 mm non-bleeding ulcer - biopsied Grade 2 flap valve on retroflexed examination of the cardia. Duodenum: Normal bulb and descending duodenum Intervention: Biopsies as noted above Impression and Post Procedure Diagnosis: Endoscopy Findings: ESOPHAGUS: Focal esophagitis at GE junction. Friable esophageal mucosa with linear erosions and scattered exudate throughout the esophagus. Empiric balloon dilation of distal esophagus was performed with a 20 mm (60 F) CRE balloon x 60 seconds STOMACH: Diffuse gastritis with a small non-bleeding ulcer Plan: Pt has a FU appointment on 09/19/24 with Tiffany Shea NP Pt advised to increase Lansoprazole to 30 mg twice daily . Above findings were reviewed with the patient and relevant handouts were given and the discharge area. BIOPSIES SHOWED: A. Stomach, antrum, biopsy: Antral-type mucosa within normal limits. B. Stomach, ulcer, biopsy: Antral type mucosa with marked regenerative changes, focal activity and focal erosion. C. Esophagus, distal, biopsy: Active esophagitis (maximum eosinophil count 4 per high powered field). D. Esophagus, mid, biopsy: Active esophagitis (maximum eosinophil count 4 per high powered field). E. Esophagus, proximal, biopsy: Squamous epithelium within normal limits; no inflammation seen. Comment: H pylori immunostain will be addended on part B
[2024-08-12 14:06] VITALS: BP 124/57; PULSE 93; RESP 16; TEMP 36.1; O2SAT 97
[2024-08-12 14:20] VITALS: BP 129/77; PULSE 87; RESP 16; TEMP 36.1; O2SAT 97
== END 2024-08-12 14:53 | disposition home or self-care (01) ==
PROVIDERS: PCP Nurse Practitioner Family; Visit Provider Internal Medicine Gastroenterology
PROC: 0DJ08ZZ Inspection of Upper Intestinal Tract, Via Natural or Artificial Opening Endoscopic (ICD-10-PCS; CPT 43235; principal; 2024-08-12 13:10)
DX: R13.10 Dysphagia, unspecified (principal); K21.9 Gastro-esophageal reflux disease without esophagitis; R10.13 Epigastric pain; R14.0 Abdominal distension (gaseous); K25.9 Gastric ulcer, unspecified as acute or chronic, without hemorrhage or perforation; K29.70 Gastritis, unspecified, without bleeding; K59.01 Slow transit constipation; M1A.0711 Idiopathic chronic gout, right ankle and foot, with tophus (tophi); E55.9 Vitamin D deficiency, unspecified; E66.9 Obesity, unspecified; Z68.30 Body mass index [BMI] 30.0-30.9, adult; Z88.1 Allergy status to other antibiotic agents; Z88.8 Allergy status to other drugs, medicaments and biological substances
CPT/HCPCS: 43249; 43239; 88305; 88342; J1100; J1596; J2003; J2704

== ENCOUNTER → 2024-08-12 10:57 | Outpatient (BNV) | payer BC, SELFPAY | PROVIDERS: PCP Nurse Practitioner Family; Visit Provider Internal Medicine Gastroenterology | DX: K21.00 Gastro-esophageal reflux disease with esophagitis, without bleeding (principal); R13.10 Dysphagia, unspecified; K29.70 Gastritis, unspecified, without bleeding; K25.9 Gastric ulcer, unspecified as acute or chronic, without hemorrhage or perforation | CPT/HCPCS: 43239; 43249 ==

== ENCOUNTER 2024-08-12 15:28 | Outpatient (AMB) | payer BC, SELFPAY ==
--- NOTE | 2024-08-12 08:35 | A.OFFPC_ITS ---
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 Allergies ciprofloxacin [Cipro] Allergy (Unknown, Verified 08/12/24 15:24) rash sulindac [SULINDAC] Allergy (Unknown, Verified 08/12/24 15:24) ITCHING, Rash/swelling on face indomethacin Adverse Reaction (Unknown, Verified 08/12/24 15:24) stomach upset Tobacco use date assessed: 08/05/24 Dental Screening Dental Screen Date: 08/05/24 HPI HPI Comments History of Present Illness Details 34-year-old male presents for telehealth visit for review of recent lab results Denies acute symptoms at this time [facility] Medical History GERD (gastroesophageal reflux disease) Gout Encounter to establish care Surgical History [place] teeth extracted Hx of appendectomy Family History Mother No problems noted. Father No problems noted. 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 Carlos Schroeder, Sarah Abbott, Lew Rivas and colleagues, with an educational donald from [email or web address]. Review of Systems Const Details: Const Denies chills, Denies fatigue, Denies fever(s), Denies headache(s) and Denies weakness ENT Denies dizziness and Denies headache(s) Card Denies chest pain, Denies lightheadedness, Denies dyspnea and Denies other (Palpitations) Resp Denies cough, Denies dyspnea, Denies wheezing and Denies other ( shortness of breath) GI Denies abdominal pain, Denies melena, Denies hematochezia, Denies change in bowel habits, Denies dyspepsia and Denies nausea Denies hematuria and Denies dysuria Musc Denies abnormal gait, Denies myalgias, Denies arthralgias, Denies numbness and Denies tingling Skin/Breast Denies rash, Denies unusual bruising and Denies wounds Neuro Denies abnormal gait, Denies dizziness, Denies headache(s), Denies memory loss, Denies numbness, Denies Sensory deficit (Neuro), Denies tingling and Denies weakness Psych Denies anxiety, Denies depression, Denies memory loss Endo Denies cold intolerance, Denies fatigue, Denies heat intolerance, Denies polydipsia and Denies polyuria Aller/Immun Denies wheezing Physical exam (Primary Care) Tobacco/Smoking Status: Tobacco use Status Tobacco use date assessed 08/05/24 08/12/24 08:39 Patient Tobacco Use Status Never used Tobacco 08/12/24 13:55 e-Cigarette/Vaping Use Never Used 08/12/24 08:39 Thrive Assessment: Date of Thrive Assessment Date Thrive assessed 06/27/24 08/12/24 08:39 Const Other: Telehealth visit. 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 Vitamin D3 1000 units daily was prescribed; he notes that he has not started taking the medication. Encouraged to start taking the medication as prescribed. Advised to get repeat vitamin-D blood work done a few days before his next visit. Follow-up for a telehealth visit in 2 months. Verbalized understanding and agreed with the plan. (2) Gout: Code(s): M10.9 - Gout, unspecified Category: Medical Qualifiers: Chronicity: chronic Gout etiology: idiopathic Gout site: foot Presence of tophus: with tophus Qualified Code(s): M1A.0711 - Idiopathic chronic gout, right ankle and foot, with tophus (tophi) Plan: Recent uric acid level is elevated, 11.3. No acute symptoms. Continue current treatment regimen. Followed by Rheumatology. Verbalized understanding and agreed with the plan. Orders: Orders Vitamin D 25-OH Total 2 Months E55.9 - Vitamin D deficiency, unspecified
== END 2024-08-12 16:08 | disposition home or self-care (01) ==
LOC: HO.HMCFM 15:28
PROVIDERS: PCP Nurse Practitioner Family; Visit Provider Nurse Practitioner Family
DX: E55.9 Vitamin D deficiency, unspecified (principal); M1A.0711 Idiopathic chronic gout, right ankle and foot, with tophus (tophi)

== ENCOUNTER 2024-08-29 12:31 | Outpatient (AMB) | payer BC, SELFPAY ==
--- NOTE | 2024-08-29 12:40 | MHC.PC.OV ---
Vital Signs 08/29/24 12:46 Height 5 ft 11 in Weight 206 lb BMI 28.7 BP 98/62 Blood Pressure Location Lt brachial Position Sitting Respiration 16 Pulse 97 Pulse Source Pulse Oximeter Temp 98.3 F Temp Source Oral Pulse Oximetry (%) 98 Oxygen Delivery Method Room Air Intake Visit Reasons: F/u Hospital Discharged Intake Note: patient here for hospital discharge Branch Service Leader Required: No Allergies ciprofloxacin [Cipro] Allergy (Unknown, Verified 08/29/24 12:45) rash sulindac [SULINDAC] Allergy (Unknown, Verified 08/29/24 12:45) ITCHING, Rash/swelling on face indomethacin Adverse Reaction (Unknown, Verified 08/29/24 12:45) stomach upset Tobacco use date assessed: 08/29/24 Dental Screening Dental Screen Date: 08/29/24 Did you have a dental visit in the last 12 months?: Yes Did you have a dental problem in the last 6 months where you did not have access to dental care?: No Was dental information given to patient?: Patient has dentist HPI HPI Comments History of Present Illness Details 34-year-old male, accompanied by his sister, presents for hospital discharge follow-up. He was treated at [facility] ED between 08/16/2024 and 08/18/2024. He presented with left ankle pain and abdominal pain. He was afebrile with a temperature of 100.6 degrees. He notes that he fell on a wet floor after he slipped on his crutches. Left ankle x-ray revealed: No fracture or dislocation. Soft tissue swelling around the ankle. Possible ankle effusion. Labs were unremarkable except for elevated WBC, 15.49 and UA positive for blood, protein, and bilirubin. He was discharged on hydrocodone-acetaminophen 5-325 mg every 6 hours as needed. He has history of right knee pain and is followed by [facility]. He also has history of diffuse gastritis with a small non-bleeding ulcer. He is on famotidine and lansoprazole. He is followed by [facility]. He currently uses a walker. He states that he is unable to fully bear weight to his left extremity. Also, his right knee feels unstable with weight-bearing. He notes that the pain and swelling to his left ankle have significantly improved. His pain increases with standing or walking and improves with rest, ice, and elevation of the left leg. He notes that he was transferred from [facility] ED to [facility] rehab and was there between - 08/28/2024. He was evaluated for home PT yesterday and scheduled to have home PT twice weekly for two weeks and once weekly for two weeks. He denies abdominal pain at this time. [facility] Medical History GERD (gastroesophageal reflux disease) Gout Encounter to establish care Surgical History [place] teeth extracted Hx of appendectomy Family History Mother No problems noted. Father No problems noted. 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 Cognitive needs: No Hearing needs: No Vision needs: No Questionnaire Thrive Questionnaire Date Thrive assessed: 08/05/24 I am a: Patient What is your living situation today?: I have a steady place to live Within the past 12 months, did the food you bought not last and you didn't have the money to get more?: Never true Within the past 12 months, did you worry whether your food would run out before you got money to buy more?: Never true Do you have trouble paying for medicines?: No Do you have trouble getting transportation to medical appointments?: No Do you have trouble paying your heating and electricity bill?: No Do you have trouble taking care of your child, family member or friend?: No Do you have trouble with day-to-day activities such as bathing, preparing meals, shopping, managing finances, etc.?: No Are you currently unemployed and looking for a job?: No Are you interested in more education?: No Please select the resources that you would like help with: None Currently or been in a relationship where the following occur: No concerns reported THRIVE Score: 0 DIONICIO-7 AMB Questionnaire DIONICIO-7 Date DIONICIO - 7 assessed: 06/27/24 Source: Developed by Drs. Carlos Schroeder, Sarah Abbott, Lew Rivas and colleagues, with an educational donald from [employer]. Review of Systems Const Details: Const Denies chills, Denies fatigue, Denies fever(s), Denies headache(s) and Denies weakness ENT Denies dizziness and Denies headache(s) Card Denies chest pain, Denies lightheadedness, Denies dyspnea and Denies other (Palpitations) Resp Denies cough, Denies dyspnea, Denies wheezing and Denies other ( shortness of breath) GI Denies abdominal pain, Denies melena, Denies hematochezia, Denies change in bowel habits, Denies dyspepsia and Denies nausea Denies hematuria and Denies dysuria Musc Reports as per HPI Skin/Breast Denies rash, Denies unusual bruising and Denies wounds Neuro Denies abnormal gait, Denies dizziness, Denies headache(s), Denies memory loss, Denies numbness, Denies Sensory deficit (Neuro), Denies tingling and Denies weakness Psych Denies anxiety, Denies depression, Denies memory loss Endo Denies cold intolerance, Denies fatigue, Denies heat intolerance, Denies polydipsia and Denies polyuria Aller/Immun Denies wheezing Physical exam (Primary Care) Vital Signs: Last Vital Signs Temp 98.3 F 08/29/24 12:46 Pulse 97 08/29/24 12:46 Resp 16 08/29/24 12:46 BP 98/62 08/29/24 12:46 Pulse Ox 98 08/29/24 12:46 Oxygen Delivery Method Room Air 08/29/24 12:46 BMI result Body Mass Index 28.7 Tobacco/Smoking Status: Tobacco use Status Tobacco use date assessed 08/29/24 08/29/24 12:49 Patient Tobacco Use Status Never used Tobacco 08/29/24 12:42 e-Cigarette/Vaping Use Never Used 08/29/24 12:42 Thrive Assessment: Date of Thrive Assessment Date Thrive assessed 08/05/24 08/29/24 12:42 Currently or been in a relationship where the following occur: No concerns reported Const Other: General: no acute distress and well developed Nutritional Appearance: well nourished Orientation/consciousness: patient oriented x3 HENMT Head: Yes normocephalic and Yes atraumatic Eyes General: appearance normal, both eyes and all related structures Pupils: Equal, round and reactive pupils present EOM: EOMs intact bilaterally Resp Effort & Inspection: normal respiratory effort Auscultation: clear to auscultation bilaterally Cardio Rate: regular rate Rhythm: regular rhythm Heart sounds: S1 normal heart sound present, S2 normal heart sound present, no gallops, no murmurs and no rubs GI Palpation (GI): No Abdominal aortic bruit present, Soft to palpation, nontender, No hepatosplenomegaly present and No Rebound tenderness present Auscultation: normal bowel sounds General: Yes no CVA tenderness Back/Spine/Pelvis Back: no CVA tenderness Cervical Spine: cervical ROM normal and No Cervical spine tenderness Thoracic/Lumbar Spine: thoraco-lumbar ROM normal, No pain with thoraco-lumbar ROM, No thoracic spinal tenderness and No lumbar spinal tenderness Extrem General: Yes normal to inspection, No calf tenderness. Left lateral ankle and foot with moderate nonpitting edema. No erythema overt injury/trauma or infection Skin General: warm and dry. Normal skin color. Normal skin turgor Neuro General: patient oriented x3, gait unsteady and no focal neuro deficit Cranial nerves: Yes Equal, round and reactive pupils present Cognition (Neuro): normal cognition Gait exam (Neuro): Normal gait present Sensory Exam: No Sensory deficit (Neuro) Psych Appearance: grossly normal Affect: normal affect Attitude: cooperative Thought process: Normal thought process present Coding Level of Care Code Est Pt Level 4 (04922) Complex EM visit Add On G2211 Diagnoses Left ankle pain M25.572 Hospital discharge follow-up Z09 Abnormal laboratory test R89.9 Pain and swelling of right knee M25.561; M25.461 Assessment & Plan Assessment & Plan (1) Left ankle pain: Code(s): M25.572 - Pain in left ankle and joints of left foot Category: Medical Plan: Left lateral ankle and foot with moderate nonpitting edema. No erythema overt injury/trauma or infection Recent x-ray of the left ankle was negative for fracture and positive for effusion Advised to take Tylenol as needed for pain or discomfort, ice, and elevate the extremity Continue to use walker for ambulation to prevent fall Follow-up with orthopedics as needed Follow-up with PCP as planned Verbalized understanding and agreed with the plan (2) Hospital discharge follow-up: Code(s): Z09 - Encounter for follow-up examination after completed treatment for conditions other than malignant neoplasm Category: Medical Plan: Plan as above (3) Abnormal laboratory test: Code(s): R89.9 - Unspecified abnormal finding in specimens from other organs, systems and tissues Category: Medical Plan: Recent WBC was elevated, and UA was abnormal. Will recheck CBC and UA and make changes as needed (4) Pain and swelling of right knee: Code(s): M25.561 - Pain in right knee; M25.461 - Effusion, right knee Category: Medical Plan: Followed by [facility] Orders: Orders Complete Blood Count no Diff Today R89.9 - Unspecified abnormal finding in specimens from other organs, systems and tissues UA CC w/rflx Micro + Cult Today R89.9 - Unspecified abnormal finding in specimens from other organs, systems and tissues
[2024-08-29 12:46] VITALS: BP 98/62; PULSE 97; RESP 16; TEMP 36.8; O2SAT 98; BMI 28.7
== END 2024-08-29 13:20 | disposition home or self-care (01) ==
PROVIDERS: PCP Nurse Practitioner Family; Visit Provider Nurse Practitioner Family
DX: M25.572 Pain in left ankle and joints of left foot (principal); Z09 Encounter for follow-up examination after completed treatment for conditions other than malignant neoplasm; R89.9 Unspecified abnormal finding in specimens from other organs, systems and tissues; M25.561 Pain in right knee; M25.461 Effusion, right knee

== ENCOUNTER → 2024-08-29 12:31 | Outpatient (BNVA) | payer BC, SELFPAY | PROVIDERS: PCP Nurse Practitioner Family; Visit Provider Nurse Practitioner Family ==

== ENCOUNTER 2024-08-29 13:28 | Outpatient (REF) | payer BC, SELFPAY ==
[2024-08-29 17:56] LABS: Appearance Urine Turbid; Color Urine Yellow; Glucose Urine UA Negative (Negative); Leukocyte Esterase Urine Negative (Negative); Nitrite Urine Negative (Negative); PH 5.5 (5.0-9.0); Urine Blood Negative (Negative); Urine Ketones Negative (Negative); Urine Protein Negative (Neg-Trace)
[2024-08-29 17:59] LABS: Hematocrit 42.6 % (42.0-52.0); Hemoglobin 13.7 g/dl (14.0-18.0); Mean Corpuscular HGB Conc 32.2 g/dl (31.0-36.0); Mean Corpuscular Volume 87.1 fL (80.0-98.0); Mean Platelet Volume 9.6 fL (9.4-12.4); Platelet Count 666 X10*3/uL (160-400); Red Blood Count 4.89 X10*6/uL (4.60-5.80); Red Cell Distribution Width 11.9 % (11.0-16.0); White Blood Count 9.8 X10*3/uL (4.8-10.8)
== END 2024-08-29 13:29 | disposition home or self-care (01) ==
LOC: HO.WFDLDS 13:28
PROVIDERS: Visit Provider Nurse Practitioner Family
DX: R89.9 Unspecified abnormal finding in specimens from other organs, systems and tissues (principal)
CPT/HCPCS: 36415; 81003; 85027

== ENCOUNTER 2024-10-11 09:15 | Outpatient (REF) | payer BC, SELFPAY ==
[2024-10-11 10:05] LABS: Hematocrit 46.4 % (42.0-52.0); Hemoglobin 15.1 g/dl (14.0-18.0); Mean Corpuscular HGB Conc 32.5 g/dl (31.0-36.0); Mean Corpuscular Hemoglobin 28.1 pg (27.0-33.0); Mean Corpuscular Volume 86.4 fL (80.0-98.0); Mean Platelet Volume 9.6 fL (9.4-12.4); Platelet Count 326 X10*3/uL (160-400); Red Blood Count 5.37 X10*6/uL (4.60-5.80); Red Cell Distribution Width 13.7 % (11.0-16.0)
[2024-10-11 11:46] LABS: Vitamin D 25-OH Total 29.9 ng/mL (>30)
== END 2024-10-11 09:16 | disposition home or self-care (01) ==
LOC: HO.LAB 09:15
PROVIDERS: PCP Nurse Practitioner Family; Visit Provider Nurse Practitioner Family
DX: D75.839 Thrombocytosis, unspecified (principal); E55.9 Vitamin D deficiency, unspecified
CPT/HCPCS: 36415; 82306; 85027

== ENCOUNTER 2024-10-16 14:19 | Outpatient (AMB) | payer BC, SELFPAY ==
--- NOTE | 2024-10-16 14:00 | A.OFFPC_ITS ---
Intake Visit Reasons: Vit D deficiency Intake Note: [facility] deficiency Database Marketing Analyst Required: No Allergies ciprofloxacin [Cipro] Allergy (Unknown, Verified 10/16/24 14:01) rash sulindac [SULINDAC] Allergy (Unknown, Verified 10/16/24 14:01) ITCHING, Rash/swelling on face indomethacin Adverse Reaction (Unknown, Verified 10/16/24 14:01) stomach upset Tobacco use date assessed: 10/16/24 Dental Screening Dental Screen Date: 10/16/24 Did you have a dental visit in the last 12 months?: Yes Did you have a dental problem in the last 6 months where you did not have access to dental care?: No Was dental information given to patient?: Patient has dentist HPI HPI Comments History of Present Illness Details 34-year-old male presents for [facility] for vitamin-D deficiency. He admits to taking his medications as prescribed without adverse reactions. He request respiratory supervisor/dietitian referral to assist with dietary choices to avoid acid reflux and gout flare-up. No acute symptoms at this time. [facility] Medical History (Updated 10/16/24 @ 15:27 by Kael Melendrez CNP) GERD (gastroesophageal reflux disease) Gout Encounter to establish care Surgical History [place] teeth extracted Hx of appendectomy Family History Mother No problems noted. Father No problems noted. 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 Carlos Schroeder, Sarah BLew Woodward and colleagues, with an educational donald from [employer]. Review of Systems Const Details: Const Denies chills, Denies fatigue, Denies fever(s), Denies headache(s) and Denies weakness ENT Denies dizziness and Denies headache(s) Card Denies chest pain, Denies lightheadedness, Denies dyspnea and Denies other (Palpitations) Resp Denies cough, Denies dyspnea, Denies wheezing and Denies other ( shortness of breath) GI Denies abdominal pain, Denies melena, Denies hematochezia, Denies change in bowel habits, Denies dyspepsia and Denies nausea Denies hematuria and Denies dysuria Musc Denies abnormal gait, Denies myalgias, Denies arthralgias, Denies numbness and Denies tingling Skin/Breast Denies rash, Denies unusual bruising and Denies wounds Neuro Denies abnormal gait, Denies dizziness, Denies headache(s), Denies memory loss, Denies numbness, Denies Sensory deficit (Neuro), Denies tingling and Denies weakness Psych Denies anxiety, Denies depression, Denies memory loss Endo Denies cold intolerance, Denies fatigue, Denies heat intolerance, Denies polydipsia and Denies polyuria Aller/Immun Denies wheezing Physical exam (Primary Care) Tobacco/Smoking Status: Tobacco use Status Tobacco use date assessed 10/16/24 10/16/24 14:03 Patient Tobacco Use Status Never used Tobacco 10/16/24 14:03 e-Cigarette/Vaping Use Never Used 10/16/24 14:03 Thrive Assessment: Date of Thrive Assessment Date Thrive assessed 08/05/24 10/16/24 14:03 Const Other: Telehealth visit. No physical exam. Telehealth Telehealth Telehealth Platform: Telephone Location of provider rendering services: practice address Location of patient: address on file Patient Identification confirmed using: Name, : Yes Telehealth method: voice only Patient verbally consented to treatment: Yes Patient verbally consented to billing insurance company: Yes Patient informed of any privacy concerns related to visit: Yes Coding Level of Care Code Tele Est Pt Level 3 (23846) Diagnoses Vitamin D deficiency E55.9 Thrombocytosis D75.839 GERD (gastroesophageal reflux disease) K21.9 Gout M10.9 Time Spent (min) 15 Assessment & Plan Assessment & Plan (1) Vitamin D deficiency: Code(s): E55.9 - Vitamin D deficiency, unspecified Category: Medical Plan: Recent vitamin-D level is slightly low, 29.9. Previous vitamin-D level is 25. Continue current treatment regimen. Perform vitamin-D blood work a few days before next visit. Follow-up in 2 months or return sooner with symptoms or concerns. Verbalized understanding and agreed with treatment plan. (2) Thrombocytosis: Code(s): D75.839 - Thrombocytosis, unspecified Category: Medical Plan: Resolved. (3) GERD (gastroesophageal reflux disease): Code(s): K21.9 - Gastro-esophageal reflux disease without esophagitis Category: Medical Plan: Referred to [facility] [place] supervisor/dietitian to assist with food choices to prevent reflux and gout flare-up. (4) Gout: Code(s): M10.9 - Gout, unspecified Category: Medical Plan: Plan as above. Orders: Orders Vitamin D 25-OH Total 2 Months E55.9 - Vitamin D deficiency, unspecified Referrals Nutrition/Dietitian Referral K21.9 - Gastro-esophageal reflux disease without esophagitis, M10.9 - Gout, unspecified
== END 2024-10-16 15:29 | disposition home or self-care (01) ==
LOC: HO.HMCFM 14:19
PROVIDERS: PCP Nurse Practitioner Family; Visit Provider Nurse Practitioner Family
DX: E55.9 Vitamin D deficiency, unspecified (principal); D75.839 Thrombocytosis, unspecified; K21.9 Gastro-esophageal reflux disease without esophagitis; M10.9 Gout, unspecified

== ENCOUNTER → 2024-10-16 14:19 | Outpatient (BNVA) | payer BC, SELFPAY | PROVIDERS: PCP Nurse Practitioner Family; Visit Provider Nurse Practitioner Family ==

== ENCOUNTER 2025-02-16 11:32 | Outpatient (REF) | payer BC, SELFPAY ==
[2025-02-16 13:09] LABS: MANUAL DIFF FLAG NO
--- OUTSIDE RECORDS SUMMARY | 2025-02-16 13:19 | XMS_ITS | Clinical Summary ---
Author Organization [facility] ity Address [address] [place] [address] Care Team Providers Care Slurry Control Operator Helper Name Role Phone Iraida Catalan MD Primary Care Provider [phone] Social History Tobacco Use Types Packs/Day Years Used Date Smoking Tobacco: Never Assessed Sex and Gender Information Value Date Recorded Sex Assigned at Not on file Legal Sex Male 2:26 PM EST Gender Identity Not on file Sexual Orientation Not on file Plan of Treatment Health Maintenance Due Date Last Done Comments DTaP,Tdap,and Td Vaccines (1 - Tdap) 2011 Hepatitis B Vaccines (1 of 3 - 19+ 3-dose series) 2011 Depression Screening 11/13/2023 HIV Screening 11/13/2023 Hepatitis C Screening 11/13/2023 Social Influencers of Health Screening 11/13/2023 COVID-19 Vaccine (2023-2 5 season) 2024 Influenza Vaccine (Season Ended) 2025 HIB Vaccines Aged Out No longer eligi ble based on patient's age to complete this topic HPV Vaccines Aged Out No longer eligi ble based on patient's age to complete this topic Hepatitis A Vaccines Aged Out No long er eligible based on patient's age to complete this topic IPV Vaccines Aged Out No longer eligi ble based on patient's age to complete this topic MMR Vaccines Aged Out No longer eligi ble based on patient's age to complete this topic Meningococcal ACWY Vaccine Aged Out N o longer eligible based on patient's age to complete this topic Meningococcal B Vaccine Aged Out No l onger eligible based on patient's age to complete this topic Pneumococcal Vaccine: Pediat rics (0 to 5 Years) and At-Risk Patients (6 to 64 Years) Aged Out No longer eligible b ased on patient's age to complete this topic RSV Immunization Patients Un brandt 20 months Aged Out No longer eligible b ased on patient's age to complete this topic Varicella Vaccines Aged Out No longer eligible based on patient's age to complete this topic Care Teams Slurry Control Operator Helper Relationship Specialty Start Date End Date Iraida Catalan MD [address] [place] [address] , [address] [facility] VANESSA Manrique PCP - General Internal Medicine 05/21/18
[2025-02-16 13:26] LABS: Basophils Absolute Auto 0.1 X10*3/uL (0.0-0.2); Basophils Percent Auto 0.8 % (0-2); Eosinophils Absolute Auto 0.1 X10*3/uL (0.0-0.4); Eosinophils Percent Auto 1.3 % (0-4); Hematocrit 50.1 % (42.0-52.0); Hemoglobin 16.6 g/dl (14.0-18.0); Imm Gran Abs Auto 0.02 X10*3/uL (0.00-0.03); Imm Gran Pct Auto 0.2 % (0.0-0.4); Lymphocytes Absolute Auto 3.2 X10*3/uL (1.2-4.9); Lymphocytes Percent Auto 38.7 % (20-40); Mean Corpuscular HGB Conc 33.1 g/dl (31.0-36.0); Mean Corpuscular Hemoglobin 29.2 pg (27.0-33.0); Mean Platelet Volume 9.8 fL (9.4-12.4); Monocytes Absolute Auto 0.5 X10*3/uL (0.1-1.2); Monocytes Percent Auto 6.2 % (2-11); Neutrophils Absolute Auto 4.3 x10*3/uL (2.0-8.3); Neutrophils Percent Auto 52.8 % (45-73); Platelet Count 321 X10*3/uL (160-400); Red Blood Count 5.69 X10*6/uL (4.60-5.80); Red Cell Distribution Width 12.6 % (11.0-16.0); White Blood Count 8.2 X10*3/uL (4.8-10.8)
[2025-02-16 13:40] LABS: Alanine Aminotransferase 32 U/L (0-40); Albumin Level 4.7 g/dL (3.5-5.0); Alkaline Phosphatase 58 U/L (39-117); Anion Gap 11 (12-20); Aspartate Amino Transferase 25 U/L (5-37); Bilirubin Total 0.6 mg/dL (0.0-1.0); Blood Urea Nitrogen 15 mg/dL (9-16); C Reactive Protein < 0.10 mg/dL (< or = 0.50); Calcium 9.7 mg/dL (8.4-10.2); Carbon Dioxide 27 mmol/L (22-29); Chloride 106 mmol/L (96-108); Estimated Glomerular Filt Rate > 60; Glucose Random 86 mg/dL (60-115); Potassium 4.2 mmol/L (3.3-5.1); Sodium 140 mmol/L (135-145); Total Protein 7.8 g/dL (6.5-8.0)
[2025-02-16 13:52] LABS: Vitamin D 25-OH Total 49.9 ng/mL (>30)
[2025-02-16 14:08] LABS: Uric Acid 9.9 mg/dL (3.4-7.0)
[2025-02-16 14:17] LABS: Erythrocyte Sedimentation Rate 5 MM/HR (0-15)
== END 2025-02-16 11:33 | disposition home or self-care (01) ==
LOC: HO.10HDL 11:32
PROVIDERS: Nurse Practitioner Family; Visit Provider Student in an Organized Health Care Education/Training Program
DX: M10.9 Gout, unspecified (principal); E55.9 Vitamin D deficiency, unspecified
CPT/HCPCS: 36415; 80053; 82306; 84550; 85025; 85652; 86140

== ENCOUNTER → 2025-06-01 13:12 | Outpatient (BNVA) | payer OTHER, SELFPAY | PROVIDERS: PCP Nurse Practitioner Family; Visit Provider Physician Assistant Medical | DX: L23.7 Allergic contact dermatitis due to plants, except food (principal); Z02.79 Encounter for issue of other medical certificate | CPT/HCPCS: 99202 ==

== ENCOUNTER 2025-06-19 09:08 | Outpatient (AMB) | payer OTHER, SELFPAY ==
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
[2025-06-19 09:23] VITALS: BP 139/60; PULSE 69; RESP 16; TEMP 36.9; O2SAT 99; BMI 27.9
--- OUTSIDE RECORDS SUMMARY | 2025-06-19 09:57 | XMS_ITS | Clinical Summary ---
Author Organization [facility] Address [address] [place] [address] Phone Care Team Providers Care Anesthesiology Crna Name Role Phone Kael Melendrez BACK MAKER Primary Care Provider [phone] Allergies No known active allergies Medications allopurinol (ZYLOPRIM) 100 MG tabletIndicatio ns:prevention of acute gout attack Take 100 mg by mouth daily. Indications: treatment to prevent acute gout attack Active lansoprazole (PREVACID) 30 MG capsuleIndicati ons:gastric ulcer Take 30 mg by mouth daily. Pharmacist states that the order is for once per day - patient states that Gastro called him last week and told him to increase to twice per day Indications: a stomach ulcer Active cholecalciferol , vitamin D3, (VITAMIN D3) 25 mcg (1,000 unit) capsuleIndicati ons:vitamin D deficiency Take 1,000 Units by mouth daily. Per pharmacist: 25mcg daily Indications: low vitamin D levels Active colchicine (COLCRYS) 0.6 mg tabletIndicatio ns:prevention of acute gout attack Take 0.6 mg by mouth daily. Indications: treatment to prevent acute gout attack Active senna (SENOKOT) 8.6 mg tabletIndicatio ns:constipation Take 2 tablets by mouth nightly at bedtime. Indications: constipation Active traMADoL (ULTRAM) 50 mg tabletIndicatio ns:pain Take 50 mg by mouth every 6 (six) hours as needed for pain (specific location in comments) (right ankle). Indications: pain Active Social History Tobacco Use Types Packs/Day Years Used Date Smoking Tobacco: Never Assessed Education Answer Date Recorded Are you interested in more education? Not on immanuel e 11/14/2023 Are you concerned about learning? Not on file 11/14/2023 No 11/14/2023 No 11/14/2023 Digital Access Answer Date Recorded No 11/14/2023 No 11/14/2023 Reliable internet access at home? Not on file 11/14/2023 Device with a working camera? Not on file Intimate Partner Violence Answer Date R ecorded Are you denied basic needs s uch as food, clothing, or medical care? No 08/16/2024 In the past 12 months have y ou been in a relationship with a person who hurts, threatens, or tries to control you? No 08/16/2024 Are you denied basic needs s uch as food, clothing, or medical care? No 08/16/2024 In the past 12 months have y ou been in a relationship with a person who hurts, threatens, or tries to control you? No 08/16/2024 Sex and Gender Information Value Date Recorded Sex Assigned at Male 11/14/2023 9:54 PM EST Legal Sex Male 9:42 PM EST Gender Identity Male 11/14/2023 9:54 PM EST Sexual Orientation Straight 11/14/2023 9: 54 PM EST Last Filed Vital Signs Vital Sign Reading Time Taken Comments Blood Pressure 135/80 08/18/2024 1:51 PM EST Pulse 105 08/18/2024 1:51 PM EST Temperature 37.4 C (99.3 F) 08/18/2024 1:51 PM EST Respiratory Rate 16 08/18/2024 1:51 PM EST Oxygen Saturation 100% 08/18/2024 1:51 PM EST Inhaled Oxygen Concentration - - Weight 97.5 kg (215 lb) 08/16/2024 9:35 PM EDT Height 180.3 cm (5' 11 ) 08/16/2024 9:35 PM EDT Body Mass Index 29.99 08/16/2024 9:35 PM EDT Plan of Treatment Health Maintenance Due Date Last Done Comments Adult Td,Tdap Booster 1992 DEPRESSION SCREENING 2004 SMOKING Hx and SMOKELESS TOBACCO SCREENING 2005 COVID-19 VACCINE ( season) 2024 CREATININE LEVEL 08/25/2025 08/25/2024, 04/2024, 08/20/2024, Additional history exists HEPATITIS C SCREENING Completed 08/20/2024 HIV ONE-TIME SCREENING (18-65 YEARS) Completed 08/20/2024 HEPATITIS A VACCINES Aged Out No long er eligible based on patient's age to complete this topic HIB VACCINES Aged Out No longer eligi ble based on patient's age to complete this topic MENINGOCOCCAL VACCINES (ACWY) Aged Out No longer eligible based on patient's age to complete this topic MENINGOCOCCAL VACCINES (B) Aged Out N o longer eligible based on patient's age to complete this topic PNEUMOCOCCAL VACCINES (0-49 years) Aged Out No longer eligible based on patient's age to complete this topic Medical Devices Not on file Procedures Procedure Name Priority Date/Time Associated Diagnosis Comments BASIC METABOLIC PANEL Routine 08/25/2024 5:55 AM EST Swelling of right knee joint Idiopathic gout of multiple sites, unspecified chronicity Elevated blood pressure reading without diagnosis of hypertension HEPATITIS C ANTIBODY, QUALITATIVE Routine 08/20/2024 10:30 AM EST Weakness from Last 3 Months or Most Recently Relevant to Health Maintenance Results * Basic metabolic panel (08/25/2024 5:55 AM EST) SODIUM 138 133 - 146 mmol/L [facility] CHLORIDE 97 96 - 108 mmol/L [facility] POTASSIUM 4.2 3.3 - 5.1 mmol/L [facility] CO2 30 21 - 35 mmol/L [facility] BUN 17 6 - 19 mg/dL [facility] CREATININE 1.10 0.5 - 1.5 mg/dL [facility] GLUCOSE 80 70 - 99 mg/dL [facility] CALCIUM 10.0 8.4 - 10.3 mg/dL [facility] EGFR 91 >59 mL/min/1.7 3m2 [facility] Comment:Estimated glomerular filtration rate calculated using the CKD-EPI refit equation. ANION GAP 15 10 - 20 mmol/L [facility] Blood 08/25/2024 5:55 AM EST 08/25/2024 9:24 AM EST Dilma Holcomb MD LAB BLOOD ORDERABLES Final Res ult [address] [address] * Hepatitis C antibody, qualitative (08/20/2024 10:30 AM EST) HCV NON-REACTIV E NON-REACTI VE [facility] Blood 08/20/2024 10:3 0 AM EST 08/20/2024 12:28 PM EST Dilma Holcomb MD LAB BLOOD ORDERABLES Final Res ult Performing Organization Address City/[facility]/ZIP Co de Phone Number [address] [address] from Last 3 Months or Most Recently Relevant to Health Maintenance Insurance [facility] Advance Directives For more information, please contact: [phone] (9AM - 5PM [facility], Sunday-Sunday) Documents on File Type Date Recorded Patient Specimen Transporter Expl anation Healthcare Proxy 08/19/2024 5:02 PM Healthcare Agents on File Name Relationship Healthcare Agent Relationshi p Communication Ning Caruso Sister .Primary Health Care Agent (Proxy form on file) Care Teams Anesthesiology Crna Relationship Specialty Start Date End Date Kael Melendrez NP [address] [place] [address] [phone] PCP - General Nurse Practitioner 08/17/24 Additional Source Comments The information contained in this document represents components of the legal health record. It is not the complete legal health record.[facility]
--- OUTSIDE RECORDS SUMMARY | 2025-06-19 09:57 | XMS_ITS | Encounter Summary ---
Author Organization [facility] Address [address] [place] [address] Phone Care Team Providers Care Vp Design Name Role Phone Kael Melendrez RADIATION CONTROL WORKER Primary Care Provider [phone] Encounter Details Date Type Department Care Team (Late st Contact Info) Description 08/20/2024 Transcribe Orders [facility] Laboratory [address] [place] [address] Catherine Farias MD [address] [place] [address] Social History Tobacco Use Types Packs/Day Years [...] Orientation Straight 11/14/2023 9: 54 PM EST documented as of this encounter Plan of Treatment Not on file documented as of this encounter Visit Diagnoses Not on filedocumented in this encounter Additional Health Concerns Infection Onset Date Last Indicated Resolved Time CoV-Risk 08/16/2024 08/16/2024 08/27/2024 1:23 AM EST documented as of this encounter Care Teams Vp Design Relationship Specialty Start Date End Date Kael Melendrez NP [address] [place] [address] PCP - General Nurse Practitioner 08/17/24 documented as of this encounter Additional Source Comments The information contained in this document represents components of the legal health record. It is not the complete legal health record.[facility]
--- OUTSIDE RECORDS SUMMARY | 2025-06-19 09:57 | XMS_ITS | Encounter Summary ---
Author Organization [facility] Address [address] [place] [address] Phone Care Team Providers Care Commodities Requirements Analyst Name Role Phone ParvinLudingolden Vizcarra EXCAVATOR BACKHOE OPERATOR Primary Care Provider [phone] Encounter Details Date Type Department Care Team (Latest Contact Info) Description 08/20/2024 Transcribe Orders [facility] Specimen Processing [address] [place] [address] Dilma Holcomb MD [address] [place] [address] [email or web address] Weakness (Primary Dx) Social History Tobacco Use Types Packs/Day Years [...] on file documented as of this encounter Results * Heterophile antibody (monospot) (08/20/2024 10:30 AM EST) Heterophile Ab NON-REACTI VE NON-REACTI VE [facility] Blood (Blood) 08/20/2024 10: 30 AM EST 08/20/2024 12:29 PM EST Dilma Holcomb MD NON CULTURE MICROBIOLOGY Final Result Performing Organization Address City/State/[facility] Co de Phone Number [address] [address] documented in this encounter Visit Diagnoses Diagnosis Weakness- Primary Other malaise and fatigue documented in this encounter Additional Health Concerns Infection Onset Date Last Indicated Resolved Time CoV-Risk 08/16/2024 08/16/2024 08/27/2024 1:23 AM EST documented as of this encounter Care Teams Commodities Requirements Analyst Relationship Specialty Start Date End Date Kael Melendrez NP [address] [place] [address] PCP - General Nurse Practitioner 08/17/24 documented as of this encounter Additional Source Comments The information contained in this document represents components of the legal health record. It is not the complete legal health record.[facility]
--- OUTSIDE RECORDS SUMMARY | 2025-06-19 09:57 | XMS_ITS | Clinical Summary ---
Author Organization [facility] ity Address [address] [place] [address] Care Team Providers Care Malt House Supervisor Name Role Phone Iraida Catalan MD Primary Care Provider [phone] Social History Tobacco Use Types Packs/Day Years [...] of 3 - 19+ 3-dose series) 2011 HIV Screening 11/13/2023 Hepatitis C Screening 11/13/2023 Social Influencers of Health Screening 11/13/2023 Depression Screening 10/15/2024 COVID-19 Vaccine (2023-2 5 season) 2025 Influenza Vaccine (#1) 2025 HIB Vaccines Aged Out No longer [...] 5 Years) and At-Risk Patients (6 to 49 Years) Aged Out No longer eligible b ased on patient's age to complete this topic RSV Immunization Patients Un brandt 20 months Aged Out No longer eligible b ased on patient's age to complete this topic Varicella Vaccines Aged Out No longer eligible based on patient's age to complete this topic Care Teams Malt House Supervisor Relationship Specialty Start Date End Date Iraida Catalan MD [address] [place] [address] , [address] [facility] D/B/A[facility] VANESSA Manrique PCP - General Internal Medicine 05/21/18
== END 2025-06-19 10:18 | disposition home or self-care (01) ==
LOC: HO.HMCFM 09:09
PROVIDERS: PCP Nurse Practitioner Family; Visit Provider Nurse Practitioner Family
DX: S66.911A Strain of unspecified muscle, fascia and tendon at wrist and hand level, right hand, initial encounter (principal)

== ENCOUNTER 2025-06-29 10:08 | Outpatient (AMB) | payer BC, SELFPAY ==
--- NOTE | 2025-06-29 10:23 | MHC.PC.OV ---
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 Required: No Allergies ciprofloxacin (Cipro) Allergy (Unknown, Verified 06/29/25 10:39) rash sulindac (SULINDAC) Allergy (Unknown, Verified 06/29/25 10:39) ITCHING, Rash/swelling on face indomethacin Adverse Reaction (Unknown, Verified 06/29/25 10:39) stomach upset Medication List - Last Reconciled 06/29/25 by Kael Melendrez CNP allopurinol 300 mg PO DAILY allopurinol 200 mg (2 x 100 mg) PO DAILY cholecalciferol (vitamin D3) (Vitamin D3) 25 mcg PO DAILY 90 days colchicine 0.6 mg PO BID famotidine 40 mg PO BEDTIME lansoprazole 30 mg PO DAILY prednisone 10 mg PO DIRECTED 10 days prednisone 10 mg PO DIRECTED 10 days sennosides (Natural Senna Laxative) 17.2 mg (2 x 8.6 mg) PO BEDTIME Tobacco use date assessed: 06/29/25 Dental Screening Dental Screen Date: 06/29/25 Did you have a dental visit in the last 12 months?: Yes Did you have a dental problem in the last 6 months where you did not have access to dental care?: No Was dental information given to patient?: Patient has dentist HPI HPI Comments History of Present Illness Details 34-year-old male presents for an extended physical exam. He admits to taking his medications as prescribed without adverse reactions. Reports ongoing right wrist pain only with certain movements or lifting heavy objects. He is currently doing physical therapy. Acute issue(s) - None Past Medical History - GERD, palpitations, vitamin-D deficiency, gout, hammertoe of left foot Social History - Nonsmoker. Does not vape. Does not drink alcohol. Denies recreational drug use - Has been making healthy dietary choices. Exercises routinely. Generally sleep well Health maintenance - Last was several years ago. Referred to Ophthalmology for routine eye exam - Last dental visit was a couple of weeks ago - Last Tdap was in 11/05/2015 - Has not been vaccinated for the flu this season; declines vaccination Specialists - [facility] Rheumatology [facility] Medical History GERD (gastroesophageal reflux disease) Gout Encounter to establish care Surgical History [place] teeth extracted Hx of appendectomy Family History Mother No problems noted. Father No problems noted. 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 1. Little interest or pleasure in doing things: not at all 2. Feeling down, depressed, or hopeless: not at all 3. Trouble falling or staying asleep, or sleeping too much: not at all 4. Feeling tired or having little energy: not at all 5. Poor appetite or overeating: not at all 6. Feeling bad about yourself - or that you are a failure or have let yourself or your family down: not at all 7. Trouble concentrating on things, such as reading the newspaper or watching television: not at all 8. Moving or speaking so slowly that other people could have noticed. Or the opposite - being so fidgety or restless that you have been moving around a lot more than usual: not at all 9. Thoughts that you would be better off or of hurting yourself in some way: not at all Total score: 0 Depression Screening Interpretation: Negative Depression Screening Done: Yes 00977 - PHQ-9 Billing: Yes Source: Developed by Drs. Carlos Schroeder, Sarah Abbott, Lew Rivas and colleagues, with an educational donald from [employer]. Thrive Questionnaire Date Thrive assessed: 06/29/25 I am a: Patient What is your living situation today?: I have a steady place to live Within the past 12 months, did the food you bought not last and you didn't have the money to get more?: Never true Within the past 12 months, did you worry whether your food would run out before you got money to buy more?: Never true Do you have trouble paying for medicines?: No Do you have trouble getting transportation to medical appointments?: No Do you have trouble paying your heating and electricity bill?: No Do you have trouble taking care of your child, family member or friend?: No Do you have trouble with day-to-day activities such as bathing, preparing meals, shopping, managing finances, etc.?: Yes Are you currently unemployed and looking for a job?: No Are you interested in more education?: No Please select the resources that you would like help with: None Currently or been in a relationship where the following occur: No concerns reported THRIVE Score: 0 AUDIT C Alcohol Use Questionnaire (AUDIT-C) 1. How often do you have a drink containing alcohol?: Never 3. How often do you have six or more drinks on one occasion?: Never Total Score: 0 Score Reviewed/Action Taken: Yes DIONICIO-7 AMB Questionnaire DIONICIO-7 Date DIONICIO - 7 assessed: 06/29/25 Feeling nervous, anxious, or on edge: 0 = Not at all Not being able to stop or control worryin = Not at all Worrying too much about different things: 0 = Not at all Trouble relaxin = Not at all Being so restless that it is hard to sit still: 0 = Not at all Becoming easily annoyed or irritable: 0 = Not at all Feeling afraid as if something awful might happen: 0 = Not at all Total DIONICIO-7 score (0-4 normal; 5-9 mild; 10-14 moderate; 15-21 severe): 0 Source: Developed by Drs. Carlos Schroeder, Sarah Abbott, Lew Rivas and colleagues, with an educational donald from [employer] DIONICIO-7 Assessment Billing DIONICIO-7 Assessment Tool: DIONICIO-7 Assessment 11232 Physical exam (Primary Care) Vital Signs: Last Vital Signs Temp 97.9 F 06/29/25 10:28 Pulse 80 09/15/25 10:28 Resp 16 06/29/25 10:28 BP 136/81 06/29/25 10:28 Pulse Ox 95 06/29/25 10:28 Oxygen Delivery Method Room Air 06/29/25 10:28 BMI result Body Mass Index 28.4 Tobacco/Smoking Status: Tobacco use Status Tobacco use date assessed 06/19/25 06/29/25 10:25 Patient Tobacco Use Status Never used Tobacco 06/29/25 10:25 e-Cigarette/Vaping Use Never Used 06/29/25 10:25 Depression Screening Interpretation: Negative Thrive Assessment: Date of Thrive Assessment Date Thrive assessed 06/19/25 06/29/25 10:25 Currently or been in a relationship where the following occur: No concerns reported Coding Level of Care Code Est Pt Level 3 (33912) Est Pt Prev Care 18-39y(57824) Diagnoses Adult general medical exam Z00.00 Strain of right wrist S66.911A Eye exam, routine Z01.00 Additional Codes DIONICIO-7 Assessment Billing - DIONICIO-7 Assessment Tool: DIONICIO-7 Assessment 77404 ([id number]) PHQ-9 - 43989 - PHQ-9 Billing: Yes ([id number]) Assessment & Plan Assessment & Plan (1) Adult general medical exam: Code(s): Z00.00 - Encounter for general adult medical examination without abnormal findings Category: Medical Plan: Normal physical exam of a 34-year-old male. No significant functional limitation noted. Continue current treatment regimen. Advised to perform vitamin-D, UA, and urine microalbumin lab work. Will review results and make changes as needed. Follow-up for an extended physical exam in a year from today. Return sooner with symptoms or concerns. Verbalized understanding and agreed with the plan. (2) Strain of right wrist: Code(s): S66.911A - Strain of unspecified muscle, fascia and tendon at wrist and hand level, right hand, initial encounter Category: Medical Plan: Reports ongoing right wrist pain only with certain movements or lifting heavy objects. He is currently doing physical therapy.. Continue current treatment regimen, including PT and wearing wrist brace. Avoid heavy lifting. Follow-up as needed. Verbalized understanding and agreed with plan. (3) Eye exam, routine: Code(s): Z01.00 - Encounter for examination of eyes and vision without abnormal findings Category: Medical Plan: Last was several years ago. Referred to Ophthalmology for routine eye exam. Orders: Orders UA CC w/rflx Micro + Cult Today Z00.00 - Encounter for general adult medical examination without abnormal findings Vitamin D 25-OH Total Today Z00.00 - Encounter for general adult medical examination without abnormal findings Microalbumin, Random (w Creat) Today Z00.00 - Encounter for general adult medical examination without abnormal findings Referrals Ophthalmology Referral Z01.00 - Encounter for examination of eyes and vision without abnormal findings
[2025-06-29 10:28] VITALS: BP 136/81; PULSE 80; RESP 16; TEMP 36.6; O2SAT 95; BMI 28.4
--- OUTSIDE RECORDS SUMMARY | 2025-06-29 12:46 | XMS_ITS | Clinical Summary ---
Author Organization [facility] ity Address [address] [place] [address] Care Team Providers Care Kitchen Lead Name Role Phone Iraida Catalan MD Primary Care Provider [phone] Social History Tobacco Use Types Packs/Day Years [...] age to complete this topic Care Teams Kitchen Lead Relationship Specialty Start Date End Date Iraida Catalan MD [address] [place] [address] , [address] [facility] D/B/A: [facility] VANESSA Manrique PCP - General Internal Medicine 05/21/18
--- OUTSIDE RECORDS SUMMARY | 2025-06-29 12:46 | XMS_ITS | Encounter Summary ---
Author Organization [facility] Address [address] [place] [address] Phone Care Team Providers Care Principal Technologist Name Role Phone ParvinLudingolden Vizcarra PRACTICE ARCHITECT Primary Care Provider [phone] Encounter Details Date Type Department Care Team (Latest Contact Info) Description 08/20/2024 Transcribe Orders [facility] Specimen Processing [address] [place] [address] Dilma Holcomb MD [address] [place] [address] [email or web address] Weakness (Primary Dx) Social History Tobacco Use [...] EST) Heterophile Ab NON-REACTI VE [facility] Blood (Blood) 08/20/2024 10: 30 AM EST 08/20/2024 12:29 PM EST Dilma Holcomb MD NON CULTURE MICROBIOLOGY Final Result Performing Organization Address City/State/[facility] Co de Phone Number [address] [address] documented in this encounter Visit Diagnoses Diagnosis Weakness- Primary Other malaise and fatigue documented in this encounter Additional Health Concerns Infection Onset Date Last Indicated Resolved Time CoV-Risk 08/16/2024 08/16/2024 08/27/2024 1:23 AM EST documented as of this encounter Care Teams Principal Technologist Relationship Specialty Start Date End Date Kael Melendrez NP [address] [place] [address] PCP - General Nurse Practitioner 08/17/24 documented as of this encounter Additional Source Comments The information contained in this document represents components of the legal health record. It is not the complete legal health record.[facility]
--- OUTSIDE RECORDS SUMMARY | 2025-06-29 12:46 | XMS_ITS | Clinical Summary ---
Author Organization [facility] Address [address] [place] [address] Phone Care Team Providers Care Energy Conservation Specialist Name Role Phone Kael Melendrez CONCAVING MACHINE OPERATOR Primary Care Provider [phone] Allergies No known active allergies Medications allopurinol [...] SMOKING Hx and SMOKELESS TOBACCO SCREENING 2005 INFLUENZA VACCINE (#1) 2025 COVID-19 VACCINE ( season) 2025 CREATININE LEVEL 08/25/2025 08/25/2024, 04/2024, 08/20/2024, Additional [...] EST) SODIUM 138 133 - 146 mmol/L [facility] CHLORIDE 97 96 - 108 mmol/L [facility] POTASSIUM 4.2 3.3 - 5.1 mmol/L [facility] CO2 30 21 - 35 mmol/L [facility] BUN 17 6 - 19 mg/dL [facility] CREATININE 1.10 0.5 - 1.5 mg/dL [facility] GLUCOSE 80 70 - 99 mg/dL [facility] CALCIUM 10.0 8.4 - 10.3 mg/dL [facility] EGFR 91 >59 mL/min/1.7 3m2 [facility] Comment:Estimated glomerular filtration rate calculated using the CKD-EPI refit equation. ANION GAP 15 10 - 20 mmol/L [facility] Blood 08/25/2024 5:55 AM EST 08/25/2024 9:24 AM EST Dilma Holcomb MD LAB BLOOD ORDERABLES Final Res ult Performing Organization Address City/[facility]/ZIP Co de Phone Number [address] [address] * Hepatitis C antibody, qualitative (08/20/2024 10:30 AM EST) HCV NON-REACTIV E NON-REACTI VE [facility] Blood 08/20/2024 10:3 0 AM EST 08/20/2024 12:28 PM EST Dilma Holcomb MD LAB BLOOD ORDERABLES Final Res ult Performing Organization Address [facility] Co de Phone Number [address] [address] from Last 3 Months or Most Recently Relevant to Health Maintenance Insurance [facility] Advance Directives For more information, please contact: [phone] (9AM - 5PM [facility], Sunday-Sunday) Documents on File Type Date Recorded Patient Ell Teacher Expl anation Healthcare Proxy 08/19/2024 5:02 PM Healthcare Agents on File Name Relationship Healthcare Agent Relationshi p Communication Ning Caruso Sister .Primary Health Care Agent (Proxy form on file) Care Teams Energy Conservation Specialist Relationship Specialty Start Date End Date Kael Melendrez NP [address] [place] [address] PCP - General Nurse Practitioner 08/17/24 Additional Source Comments The information contained in this document represents components of the legal health record. It is not the complete legal health record.[facility]
--- OUTSIDE RECORDS SUMMARY | 2025-06-29 12:46 | XMS_ITS | Encounter Summary ---
Author Organization [facility] Address [address] [place] [address] Phone Care Team Providers Care Body Shop Estimator Name Role Phone Kael Melendrez BOBBIN LOOSE END FINDER Primary Care Provider [phone] Encounter Details Date Type Department Care Team (Late st Contact Info) Description 08/20/2024 Transcribe Orders [facility] Laboratory [address] [place] [address] Catherine Farias MD [address] [place] [address] Social History Tobacco Use Types Packs/Day Years [...] documented as of this encounter Care Teams Body Shop Estimator Relationship Specialty Start Date End Date Kael Melendrez NP [address] [place] [address] PCP - General Nurse Practitioner 08/17/24 documented as of this encounter Additional Source Comments The information contained in this document represents components of the legal health record. It is not the complete legal health record.[facility]
== END 2025-06-29 10:50 | disposition home or self-care (01) ==
LOC: HO.HMCFM 10:09
PROVIDERS: PCP Nurse Practitioner Family; Visit Provider Nurse Practitioner Family
DX: Z00.00 Encounter for general adult medical examination without abnormal findings (principal); S66.911A Strain of unspecified muscle, fascia and tendon at wrist and hand level, right hand, initial encounter

== ENCOUNTER 2025-06-29 10:08 | Outpatient (REF) | payer BC, SELFPAY ==
[2025-06-29 14:12] LABS: MANUAL DIFF FLAG NO
[2025-06-29 14:18] LABS: Hematocrit 48.5 % (42.0-52.0); Hemoglobin 16.5 g/dl (14.0-18.0); Imm Gran Abs Auto 0.05 X10*3/uL (0.00-0.03); Imm Gran Pct Auto 0.8 % (0.0-0.4); Lymphocytes Absolute Auto 2.6 X10*3/uL (1.2-4.9); Mean Corpuscular HGB Conc 34.0 g/dl (31.0-36.0); Mean Corpuscular Hemoglobin 30.3 pg (27.0-33.0); Mean Corpuscular Volume 89.0 fL (80.0-98.0); NRBC Abs Auto 0.000 X10*3/uL (0.0-0.012); NRBC Pct Auto 0.0 /100WBC (0.0-0.2); Platelet Count 307 X10*3/uL (160-400); Red Blood Count 5.45 X10*6/uL (4.60-5.80); White Blood Count 6.6 X10*3/uL (4.8-10.8)
[2025-06-29 14:20] LABS: Appearance Urine Clear; Glucose Urine UA Negative (Negative); PH 7.0 (5.0-9.0); Specific Gravity - Urine 1.020 (1.005-1.025)
[2025-06-29 14:33] LABS: Alanine Aminotransferase 23 U/L (0-40); Albumin Level 4.9 g/dL (3.5-5.0); Alkaline Phosphatase 55 U/L (39-117); Anion Gap 12 (12-20); Aspartate Amino Transferase 23 U/L (5-37); Blood Urea Nitrogen 15 mg/dL (9-16); Calcium 10.0 mg/dL (8.4-10.2); Carbon Dioxide 26 mmol/L (22-29); Chloride 107 mmol/L (96-108); Estimated Glomerular Filt Rate > 60; Potassium 4.2 mmol/L (3.3-5.1); Sodium 141 mmol/L (135-145); Total Protein 7.9 g/dL (6.5-8.0); Uric Acid 9.3 mg/dL (3.4-7.0)
== END 2025-06-29 10:09 | disposition home or self-care (01) ==
LOC: HO.WFDLDS 10:08
PROVIDERS: Student in an Organized Health Care Education/Training Program; PCP Nurse Practitioner Family; Visit Provider Nurse Practitioner Family
DX: Z00.00 Encounter for general adult medical examination without abnormal findings (principal); Z01.00 Encounter for examination of eyes and vision without abnormal findings; S66.911A Strain of unspecified muscle, fascia and tendon at wrist and hand level, right hand, initial encounter; M10.9 Gout, unspecified; E55.9 Vitamin D deficiency, unspecified
CPT/HCPCS: 36415; 80053; 81003; 82306; 82570; 84550; 85025; 85652; 86140; 96127

== ENCOUNTER 2025-07-08 14:53 | Outpatient (AMB) | payer BC, SELFPAY ==
--- NOTE | 2025-07-08 15:10 | A.OFFVIS_ITS ---
Vital Signs 07/08/25 15:13 Height 5 ft 11 in Weight 207 lb 10.807 oz BMI 29.0 BP 134/82 Blood Pressure Location Lt brachial Position Sitting Pulse 73 Pulse Source Pulse Oximeter Pulse Oximetry (%) 98 Oxygen Delivery Method Room Air Intake Visit Reasons: discuss labs Intake Note: Patient presents to discuss labs. Allergies ciprofloxacin (Cipro) Allergy (Unknown, Verified 07/08/25 15:13) rash sulindac (SULINDAC) Allergy (Unknown, Verified 07/08/25 15:13) ITCHING, Rash/swelling on face indomethacin Adverse Reaction (Unknown, Verified 07/08/25 15:13) stomach upset Medication List - Last Reconciled 07/08/25 by Anne-Marie Maier MD allopurinol 600 mg (2 x 300 mg) PO DAILY cholecalciferol (vitamin D3) (Vitamin D3) 25 mcg PO DAILY 90 days colchicine 0.6 mg PO DAILY famotidine 40 mg PO BEDTIME lansoprazole 30 mg PO DAILY sennosides (Natural Senna Laxative) 17.2 mg (2 x 8.6 mg) PO BEDTIME HPI Comments Details: Patient is a 35-year-old male with non crystal proven gout, GERD here today for follow up Interval History: Patient last seen 12/10/[address] James - On allopurinol 500mg daily and colchicine 0.6mg bid - Non compliant with medications Today - On allopurinol 500mg and colchicine 0.6mg bid - Not compliant with his allopurinol and colchicine - Has not had any gout flares in the past year Rheumatologic History: Initial history: 31-year-old male with past medical history of gout diagnosed about 5-6 years ago. He would have his attacks usually in the 1st MTPs of both feet. Occasionally it would affect his knees as well. Attacks are usually associated with alcohol consumption. He stopped alcohol drinking over the last 2 years. Was recently seen by his primary provider and was started on allopurinol 200 mg daily as well as colchicine 0.6 mg Twice daily and meloxicam as needed. He denies ever having kidney stones. Denies blood in the urine. Currently he has a flare of both MTPs and it significantly limits his ability to wear shoes, he works for [employer], and he has to wear heavy boots for his job and his toes are quite painful especially with gout flares. He denies any other symptoms Current Rheumatology Medication(s): Allopurinol 500mg daily Colchicine 0.6mg bid PFS Medical History GERD (gastroesophageal reflux disease) Gout Encounter to establish care Surgical History [place] teeth extracted Hx of appendectomy Family History Mother No problems noted. Father No problems noted. 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 Cognitive needs: No Hearing needs: No Vision needs: No Review of Systems Const Details: Review of Systems Constitutional: Denies fever, chills, weight loss ENT: Denies vision changes, eye pain or eye redness, dental caries, dry mouth GI: Denies nausea, vomiting, diarrhea, abdominal pain, change in BM Pulm: Denies SOB, KINSEY, hemoptysis, wheezing Cards: Denies chest pain, palpitations Skin: Denies Raynaud's, rash, nail changes, photosensitivity, CONTACT CENTER ENGINEER: Denies headaches, weakness, paresthesias, recurrent falls MSK: as per HPI All other systems reviewed and are unremarkable except noted above Physical Exam Exam Exam: Vital signs reviewed Physical Examination CONSTITUITIONAL Patient alert and cooperative. Well appearing and in no apparent painful distress MSK Hands * Right Hand: Able to make a fist. No swelling or tenderness to palpation of the MCPs, PIPs or DIPs. No deformities noted. * Left Hand: Able to make a fist. No swelling or tenderness to palpation of the MCPs, PIPs or DIPs. No deformities noted. Wrists * Right Wrist: Full ROM to flexion and extension. No swelling or TTP * Left Wrist: Full ROM to flexion and extension. No swelling or TTP Elbows * Right Elbow: Full ROM. No swelling or TTP. No TTP of the medial epicondyle. No TTP of the lateral epicondyle * Left Elbow: Full ROM. No swelling or TTP. No TTP of the medial epicondyle. No TTP of the lateral epicondyle Shoulders * Right shoulder: Full ROM. No swelling noted. No TTP of the AC joint. No TTP of the subacromial bursa. No TTP of the posterior shoulder * Left shoulder: Full ROM. No swelling noted. No TTP of the AC joint. No TTP of the subacromial bursa. No TTP of the posterior shoulder Knees * Right knee: Full ROM. No swelling noted. No TTP of the knee joint line. No TTP of pes anserine bursa * Left knee: Full ROM. No swelling noted. No TTP of the knee joint line. No TTP of pes anserine bursa. Ankles * Right ankle: Good ankle dorsiflexion and plantar flexion. No swelling. No TTP of the ankle joint * Left ankle: Good ankle dorsiflexion and plantar flexion. No swelling. No TTP of the ankle joint Feet * Right foot: Negative squeeze test * Left foot: Negative squeeze test Tender points? * No tenderness to palpation of the bilateral trapezius, supraspinatus, anterior costochondral junctions, bilateral suboccipital muscle insertions SKIN Tophi noted to bilateral ears Vital Signs: Last Vital Signs Pulse 73 07/08/25 15:13 BP 134/82 07/08/25 15:13 Pulse Ox 98 07/08/25 15:13 Oxygen Delivery Method Room Air 07/08/25 15:13 BMI result Body Mass Index 29.0 Results Reviewed Results Reviewed: Laboratory Tests 02/16/25 06/29/25 11:35 11:08 WBC 6.6 RBC 5.45 Hgb 16.5 Hct 48.5 Plt Count 307 ESR 2 Sodium 141 Potassium 4.2 Chloride 107 Carbon Dioxide 26 BUN 15 Creatinine 1.22 Uric Acid 9.9 H 9.3 H AST 23 ALT 23 C-Reactive Protein < 0.10 25-OH Vitamin D Total 67.2 Assessment & Plan Assessment & Plan (1) Gout: Code(s): M10.9 - Gout, unspecified Category: Medical Qualifiers: Gout site: foot Gout etiology: idiopathic Chronicity: chronic Presence of tophus: with tophus Qualified Code(s): M1A.0711 - Idiopathic chronic gout, right ankle and foot, with tophus (tophi) Plan: #Tophaceous gout Patient is a 35-year-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 Had a very long discussion with patient about the diagnosis of gout and the importance of follow up and the increased risk of flares due to noncompliance with medication Patient voiced understanding and states that he will be more compliant with his gout medications Plan - Allopurinol 600mg (300mg x 2) - Colchicine 0.6mg daily - RTC 6 months - Labs before visit: CBC, CMP, ESR, CRP, Uric Acid (2) Encounter for monitoring allopurinol therapy: Code(s): Z51.81 - Encounter for therapeutic drug level monitoring; Z79.899 - Other long term care social worker (current) drug therapy Plan: #Long-term Current Use of Allopurinol Risks and benefits of allopurinol discussed with patient Benefits include decreased gout flares, remission of gout and reduction of tophi Risks include allopurinol hypersensitivity syndrome which is a severe cutaneous adverse reaction associated with allopurinol use particularly in patients who are HLA B*5801 positive, increased transaminases, GI upset including diarrhea, nausea and vomiting, and other dermatologic manifestations. (3) On colchicine therapy: Code(s): Z79.899 - Other long-term (current) drug therapy Plan: #Long-term use of colchicine Risks and benefits of long-term colchicine for the management of this patient's gout discussed with patient. Benefits include reduced occurrence of flares while we titrate and regulate his uric acid on allopurinol and other uric acid lowering medications. ? Risks include worsening myalgias especially if on statins and GI upset including diarrhea Plan I spent 35 minutes reviewing the record and labs, taking a history, examining the patient, discussing the treatment plan, ordering diagnostic work up and documenting in the medical record Orders: Orders Comprehensive Met. Panel 6 Months M1A.0711 - Idiopathic chronic gout, right ankle and foot, with tophus (tophi), Z79.899 - Other long term care social worker (current) drug therapy Complete Blood Count Auto Diff 6 Months M1A.0711 - Idiopathic chronic gout, right ankle and foot, with tophus (tophi), Z79.899 - Other long-term (current) drug therapy C Reactive Protein 6 Months M1A.0711 - Idiopathic chronic gout, right ankle and foot, with tophus (tophi), Z79.899 - Other long-term (current) drug therapy Erythrocyte Sedimentation Rate 6 Months - Idiopathic chronic gout, right ankle and foot, with tophus (tophi), Z79.899 - Other long-term (current) drug therapy Uric Acid 6 Months - Idiopathic chronic gout, right ankle and foot, with tophus (tophi) Medications: Changed From allopurinol Combine with 2 X 100 mg allopurinol tablets for a total dose of 500 mg daily 300 mg PO DAILY 90 tabs 1RF - Idiopathic chronic gout, right ankle and foot, with tophus (tophi) To allopurinol 600 mg (2 x 300 mg) PO DAILY 180 tabs 1RF - Idiopathic chronic gout, right ankle and foot, with tophus (tophi) From colchicine 0.6 mg PO BID 180 tabs 1RF M10.9 - Gout, unspecified To colchicine 0.6 mg PO DAILY 90 tabs 1RF M10.9 - Gout, unspecified Discontinued allopurinol Combine with Allopurinol 300 mg tablet for a total of 500 mg daily Discontinued Reason: Doctor's Order 200 mg (2 x 100 mg) PO DAILY 180 tabs 1RF M10.9 - Gout, unspecified prednisone see taper instructions (5,5,4,4,3,3,2,2,1,1) Discontinued Reason: Patient Completed Course 10 mg PO DIRECTED 10 days 30 tabs 0RF prednisone see taper instructions (5,5,4,4,3,3,2,2,1,1) Discontinued Reason: Patient Completed Course 10 mg PO DIRECTED 10 days 30 tabs 0RF Coding Level of Care Code Est Pt Level 4 (88379) Complex EM visit Add On G2211 Diagnoses 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
[2025-07-08 15:13] VITALS: BP 134/82; PULSE 73; O2SAT 98; BMI 29.0
--- OUTSIDE RECORDS SUMMARY | 2025-07-08 17:23 | XMS_ITS | Clinical Summary ---
Author Organization [facility] ity Address [address] [place] [address] Care Team Providers Care Belt Loop Cutter Name Role Phone Iraida Catalan MD Primary Care Provider [phone] Social History Tobacco Use Types Packs/Day Years [...] age to complete this topic Care Teams Belt Loop Cutter Relationship Specialty Start Date End Date Iraida Catalan MD [address] [place] [address] , [address] [facility] D/B/A: [facility] VANESSA Manrique PCP - General Internal Medicine 05/21/18
--- OUTSIDE RECORDS SUMMARY | 2025-07-08 17:23 | XMS_ITS | Encounter Summary ---
Author Organization [facility] Address [address] [place] [address] Phone Care Team Providers Care Trim Operator Name Role Phone Kael Melendrez PIPE BOWL PAINT TRIMMER Primary Care Provider [phone] Encounter Details Date Type Department Care Team (Late st Contact Info) Description 08/20/2024 Transcribe Orders [facility] Laboratory [address] [place] [address] Catherine Farias MD [address] [place] [address] Social History Tobacco Use Types Packs/Day Years [...] documented as of this encounter Care Teams Trim Operator Relationship Specialty Start Date End Date Kael Melendrez NP [address] [place] [address] PCP - General Nurse Practitioner 08/17/24 documented as of this encounter Additional Source Comments The information contained in this document represents components of the legal health record. It is not the complete legal health record.[facility]
--- OUTSIDE RECORDS SUMMARY | 2025-07-08 17:23 | XMS_ITS | Clinical Summary ---
Author Organization [facility] Address [address] [place] [address] Phone Care Team Providers Care Field Laborer Name Role Phone Kael Melendrez SANITATION TRUCK CLEANER Primary Care Provider [phone] Allergies No known active allergies Medications allopurinol [...] EST) SODIUM 138 133 - 146 mmol/L [facility] CHLORIDE 97 96 - 108 mmol/L [facility] POTASSIUM 4.2 3.3 - 5.1 mmol/L [facility] CO2 30 21 - 35 mmol/L [facility] BUN 17 6 - 19 mg/dL [facility] CREATININE 1.10 0.5 - 1.5 mg/dL [facility] GLUCOSE 80 70 - 99 mg/dL [facility] CALCIUM 10.0 8.4 - 10.3 mg/dL [facility] EGFR 91 >59 mL/min/1.7 3m2 [facility] Comment:Estimated glomerular filtration rate calculated using the CKD-EPI refit equation. ANION GAP 15 10 - 20 mmol/L [facility] Blood 08/25/2024 5:55 AM EST 08/25/2024 9:24 AM EST Dilma Holcomb MD LAB BLOOD ORDERABLES Final Res ult Performing Organization Address City/[facility]/ZIP Co de Phone Number [address] [address] * Hepatitis C antibody, qualitative (08/20/2024 10:30 AM EST) HCV NON-REACTIV E NON-REACTI VE [facility] Blood 08/20/2024 10:3 0 AM EST 08/20/2024 12:28 PM EST Dilma Holcomb MD LAB BLOOD ORDERABLES Final Res ult Performing Organization Address [facility] Co de Phone Number [address] [address] from Last 3 Months or Most Recently Relevant to Health Maintenance [facility] Advance Directives For more information, please contact: [phone] (9AM - 5PM [facility], Sunday-Sunday) Documents on File Type Date Recorded Patient Wildlife Officer Expl anation Healthcare Proxy 08/19/2024 5:02 PM Healthcare Agents on File Name Relationship Healthcare Agent Relationshi p Communication Ning Caruso Sister .Primary Health Care Agent (Proxy form on file) Care Teams Field Laborer Relationship Specialty Start Date End Date Kael Melendrez NP [address] [place] [id number] PCP - General Nurse Practitioner 08/17/24 Additional Source Comments The information contained in this document represents components of the legal health record. It is not the complete legal health record.[facility]
--- OUTSIDE RECORDS SUMMARY | 2025-07-08 17:23 | XMS_ITS | Encounter Summary ---
Author Organization [facility] Address [address] [place] [address] Phone Care Team Providers Care Java Software Architect Name Role Phone ParvinLudingolden Vizcarra POT TENDER Primary Care Provider [phone] Encounter Details Date Type Department Care Team (Latest Contact Info) Description 08/20/2024 Transcribe Orders [facility] Specimen Processing [address] [place] [address] Dilma Holcomb MD [address] [place] [address] [email or web address] Weakness (Primary Dx) Social History Tobacco Use [...] EST) Heterophile Ab NON-REACTI VE NON-REACTI VE [facility] Blood (Blood) 08/20/2024 10: 30 AM EST 08/20/2024 12:29 PM EST Dilma Holcomb MD NON CULTURE MICROBIOLOGY Final Result Performing Organization Address City/State/[facility] Co de Phone Number [address] [address] documented in this encounter Visit Diagnoses Diagnosis Weakness- Primary Other malaise and fatigue documented in this encounter Additional Health Concerns Infection Onset Date Last Indicated Resolved Time CoV-Risk 08/16/2024 08/16/2024 08/27/2024 1:23 AM EST documented as of this encounter Care Teams Java Software Architect Relationship Specialty Start Date End Date Kael Melendrez NP [address] [place] [address] PCP - General Nurse Practitioner 08/17/24 documented as of this encounter Additional Source Comments The information contained in this document represents components of the legal health record. It is not the complete legal health record.[facility]
== END 2025-07-08 15:46 | disposition home or self-care (01) ==
LOC: HO.RHES 14:54
PROVIDERS: PCP Nurse Practitioner Family; Visit Provider Student in an Organized Health Care Education/Training Program
DX: M1A.0711 Idiopathic chronic gout, right ankle and foot, with tophus (tophi) (principal); Z51.81 Encounter for therapeutic drug level monitoring; Z79.899 Other long term (current) drug therapy
CPT/HCPCS: 99214